=== PATIENT | male | born 1990 | race Caucasian/White ===

== ENCOUNTER 2017-04-20 16:58 | Inpatient (IN) | payer OTHER, BC ==
[2017-04-20] MEDS ORDERED: HYDROcodone/APAP 7.5-325MG 1 EACH TAB PO ONE (17:35)
[2017-04-20] MEDS ORDERED: cefTRIAXone 1,000 MG VIAL (IM USE) IM STA (17:36)
[2017-04-20] MEDS ORDERED: CIPROFLOXACIN-DEXAMETH 0.3-0.1% DROPS 7.5 ML BTL LEFT EAR STA (17:37)
--- NOTE | 2017-04-20 18:21 | ED ---
ENT HPI - General Chief complaint: ENT Stated complaint: Swollen Neck Time Seen by Provider: 04/20/17 17:30 Source: patient, RN notes reviewed Mode of arrival: ambulatory Limitations: no limitations - History of Present Illness Initial comments: 26-year-old male presents emergency Department with chief complaint of severe left ear pain and pain behind his ear. Patient states started 2 days ago after he got a shower. Patient was seen at the [facility] was placed on Polytrim eardrops, , amoxicillin and tramadol. Patient states that symptoms are exponentially worse. Patient states his ear canal is swollen shut his ear is swollen and around it is swollen. Patient denies any fever or chills. Patient does complain of severe pain. Patient states that he is not diabetic and they did do an Accu-Chek when he was seen the other day. - Related Data Allergies Allergy/AdvReac Type Severity Reaction Status Date / Time No Known Allergies Allergy Verified 04/20/17 17:07 Review of Systems ROS Statement: Those systems with pertinent positive or pertinent negative responses have been documented in the HPI. ROS Other: All systems not noted in ROS Statement are negative. Past Medical History Past Medical History: No Reported History History of Any Multi-Drug Resistant Organisms: None Reported Past Surgical History: No Surgical Hx Reported Past Psychological History: No Psychological Hx Reported Smoking Status: Never smoker Past Alcohol Use History: None Reported Past Drug Use History: None Reported General Exam Limitations: no limitations General appearance: alert, in no apparent distress Head exam: Present: atraumatic, normocephalic, normal inspection Eye exam: Present: normal appearance, PERRL, EOMI. Absent: scleral icterus, conjunctival injection, periorbital swelling ENT exam: Present: normal oropharynx, mucous membranes moist, other (Tenderness in the mastoid region the left with surrounding swelling). Absent: normal exam , TM's normal bilaterally (Unable to visualize left TM), normal external ear exam (Edema and erythema with some purulent drainage noted from left EAC, swelling of the left auricle noted) Neck exam: Present: normal inspection, full ROM, lymphadenopathy. Absent: tenderness, meningismus Respiratory exam: Present: normal lung sounds bilaterally. Absent: respiratory distress, wheezes, rales, rhonchi, stridor Cardiovascular Exam: Present: regular rate, normal rhythm, normal heart sounds. Absent: systolic murmur, diastolic murmur, rubs, gallop, clicks Course Vital Signs 04/20/17 04/20/17 17:05 19:26 Temperature 99.5 F 97.8 F Pulse Rate 103 H 78 Respiratory 18 18 Rate Blood Pressure 167/95 140/79 O2 Sat by Pulse 99 98 Oximetry Medical Decision Making - Medical Decision Making Patient will be admitted at this time for IV antibiotics, Ciprodex eardrops. Patient has worsening symptoms and failed outpatient treatment for severe otitis externa and media with mastoiditis. Do have some concerns for possible malignant otitis externa. Patient be started on Zosyn and Ciprodex. Patient case discussed with Dr. santana - Lab Data Result diagrams: 04/20/17 19:00 04/20/17 19:00 Lab Results 04/20/17 04/20/17 Range/Units 19:00 19:00 WBC 11.0 H (3.8-10.6) k/uL RBC 4.90 (4.30-5.90) m/uL Hgb 15.2 (13.0-17.5) gm/dL Hct 44.9 (39.0-53.0) % MCV 91.6 (80.0-100.0) fL MCH 31.0 (25.0-35.0) pg MCHC 33.9 (31.0-37.0) g/dL RDW 14.8 (11.5-15.5) % Plt Count 295 (150-450) k/uL Neutrophils % 74 % Lymphocytes % 16 % Monocytes % 7 % Eosinophils % 0 % Basophils % 0 % Neutrophils # 8.1 H (1.3-7.7) k/uL Lymphocytes # 1.8 (1.0-4.8) k/uL Monocytes # 0.7 (0-1.0) k/uL Eosinophils # 0.0 (0-0.7) k/uL Basophils # 0.0 (0-0.2) k/uL Sodium 137 (137-145) mmol/L Potassium 3.9 (3.5-5.1) mmol/L Chloride 100 (98-107) mmol/L Carbon Dioxide 25 (22-30) mmol/L Anion Gap 12 mmol/L BUN 10 (9-20) mg/dL Creatinine 0.66 (0.66-1.25) mg/dL Est GFR (MDRD) Af Amer >60 (>60 ml/min/1.73 sqM) Est GFR (MDRD) Non-Af >60 (>60 ml/min/1.73 sqM) Glucose 104 H (74-99) mg/dL Calcium 9.6 (8.4-10.2) mg/dL Total Bilirubin 2.3 H (0.2-1.3) mg/dL AST 21 (17-59) U/L ALT 43 (21-72) U/L Alkaline Phosphatase 66 (38-126) U/L Total Protein 7.8 (6.3-8.2) g/dL Albumin 4.6 (3.5-5.0) g/dL Disposition Clinical Impression: Malignant otitis externa of left ear, Otitis media, Mastoiditis Disposition: ADMITTED IP TO THIS HOSP Condition: Fair Referrals: None,Stated [Primary Care Provider] - 1-2 days
--- NOTE | 2017-04-20 18:30 | CT ---
EXAMINATION TYPE: CT mastoid wo con DATE OF EXAM: 04/20/2017 COMPARISON: NONE HISTORY: Left ear redness, swelling and drainage. CT DLP: 290.00 mGycm Automated exposure control for dose reduction was used. FINDINGS: There is subcutaneous edema around the left ear. There is increased density in the left external narda tory canal which is occluded. There is normal aeration of the right mastoid sinus. There is mild muco miguel thickening in the left mastoid air cells. Temporomandibular joints appear normal. There is opacif ication of the left middle ear cavity with increased density extending into the epitympanic recess. The internal auditory canals are symmetric. There is no sign of a cerebellopontine angle mass. The se micircular canals are symmetric. The cochlea are symmetric. IMPRESSION: THERE IS SOFT TISSUE SWELLING AND EDEMA AT THE EXTERNAL AUDITORY CANAL AND AROUND THE LEFT EAR CONSIS TENT WITH SEVERE OTITIS EXTERNA. THERE IS SIGNIFICANT OPACIFICATION OF THE LEFT MIDDLE EAR CAVITY CONSISTENT WITH OTITIS MEDIA. THERE IS EVIDENCE FOR MINIMAL LEFT-SIDED MASTOIDITIS.
[2017-04-20] MEDS ORDERED: ONDANSETRON 4 MG/2 ML VIAL IVP STA (18:50)
[2017-04-20 19:14] LABS: Basophils % (A) 0 %; CH 31.4; CHCM 34.4; Eosinophils % (A) 0 %; HCT 44.9 % (39.0-53.0); HDW 2.69; HGB 15.2 gm/dL (13.0-17.5); Luc # (Auto) 0.28; Luc % (Auto) 3; Lymphocytes # (A) 1.8 k/uL (1.0-4.8); Lymphocytes % (A) 16 %; MCHC 33.9 g/dL (31.0-37.0); MCV 91.6 fL (80.0-100.0); Mean Platelet Volume 6.5; Monocytes # (A) 0.7 k/uL (0-1.0); Monocytes % (A) 7 %; Neutrophils # (A) 8.1 k/uL (1.3-7.7); Neutrophils % (A) 74 %; RDW 14.8 % (11.5-15.5); WBC (Perox) 10.14
[2017-04-20 19:22] LABS: ALT 43 U/L (21-72); AST 21 U/L (17-59); Alkaline Phosphatase 66 U/L (38-126); Anion Gap 12 mmol/L; Blood Urea Nitrogen 10 mg/dL (9-20); Calcium 9.6 mg/dL (8.4-10.2); Carbon Dioxide 25 mmol/L (22-30); Chloride 100 mmol/L (98-107); Glucose 104 mg/dL (74-99); Non-African American GFR(MDRD) >60 (>60 ml/min/1.73 sqM); Potassium 3.9 mmol/L (3.5-5.1); Sodium 137 mmol/L (137-145); Total Bilirubin 2.3 mg/dL (0.2-1.3); Total Protein 7.8 g/dL (6.3-8.2)
[2017-04-20] MEDS ORDERED: ONDANSETRON 4 MG/2 ML VIAL IVP PRN (19:31)
[2017-04-20] MEDS ORDERED: ACETAMINOPHEN TAB 325 MG TAB PO PRN (19:31)
[2017-04-20] MEDS ORDERED: NALOXONE 0.4 MG/ML 1 ML VIAL IV PRN (19:31)
[2017-04-20] MEDS: HYDROcodone/APAP 5-325MG 1 EACH TAB PO PRN (22:08)
[2017-04-20] MEDS: SODIUM CHLORIDE 0.9% 1,000 ML IV SCH (22:09)
[2017-04-20] MEDS: CIPROFLOXACIN-DEXAMETH 0.3-0.1% DROPS 7.5 ML BTL LEFT EAR SCH (22:10)
[2017-04-20] MEDS ORDERED: ALPRAZolam 0.25 MG TAB PO PRN (23:57)
[2017-04-20] MEDS ORDERED: TEMAZEPAM 15 MG CAP PO PRN (23:57)
[2017-04-20] MEDS: PIPERACILLIN-TAZOBACTAM 3.375 GM in DEXTROSE/WATER 1 50ML.BAG IVPB SCH (23:58)
[2017-04-21] MEDS: HYDROmorphone 1 MG/ML 1 ML SYRINGE IVP PRN ×4 (02:17→17:26)
[2017-04-21] MEDS: HEPARIN SODIUM,PORCINE 5,000 UNIT/ML 1 ML VIAL SQ SCH ×2 (08:42→22:15)
[2017-04-21] MEDS: CIPROFLOXACIN-DEXAMETH 0.3-0.1% DROPS 7.5 ML BTL LEFT EAR SCH ×2 (08:42→22:15)
[2017-04-21] MEDS: PANTOPRAZOLE 40 MG TABLET PO SCH (08:42)
[2017-04-21] MEDS: PIPERACILLIN-TAZOBACTAM 3.375 GM in DEXTROSE/WATER 1 50ML.BAG IVPB SCH ×3 (08:43→23:37)
[2017-04-21 09:26] LABS: Basophils % (A) 0 %; CH 31.5; CHCM 33.7; Eosinophils % (A) 0 %; HCT 43.6 % (39.0-53.0); HDW 2.72; HGB 14.3 gm/dL (13.0-17.5); Luc # (Auto) 0.24; Luc % (Auto) 2; Lymphocytes % (A) 18 %; MCH 30.8 pg (25.0-35.0); MCHC 32.8 g/dL (31.0-37.0); Mean Platelet Volume 6.5; Monocytes # (A) 0.7 k/uL (0-1.0); Monocytes % (A) 6 %; Neutrophils # (A) 8.3 k/uL (1.3-7.7); Neutrophils % (A) 73 %; RBC 4.64 m/uL (4.30-5.90); RDW 14.8 % (11.5-15.5); WBC 11.3 k/uL (3.8-10.6); WBC (Perox) 11.19
[2017-04-21 09:30] LABS: Anion Gap 10 mmol/L; Blood Urea Nitrogen 9 mg/dL (9-20); Calcium 9.4 mg/dL (8.4-10.2); Carbon Dioxide 26 mmol/L (22-30); Chloride 100 mmol/L (98-107); Glucose 105 mg/dL (74-99); Non-African American GFR(MDRD) >60 (>60 ml/min/1.73 sqM); Potassium 4.2 mmol/L (3.5-5.1); Sodium 136 mmol/L (137-145)
--- NOTE | 2017-04-21 10:29 | HP ---
DATE OF ADMISSION: 04/20/2017 CHIEF COMPLAINT: Pain and swelling and discharge from the left ear. HISTORY OF PRESENT ILLNESS: This 26-year-old gentleman with a past medical history of no significant medical issues, not being followed by any primary physician in the outpatient setting, was complaining of left ear pain as well as some discharge. Patient went to [facility] and was given antibiotics as well as ear drops. Because of lack of improvement, the patient presented to [facility] and was admitted for further evaluation and treatment. A CT scan showed significant soft tissue swelling of the external auditory canal around the left ear consistent with severe otitis externa; also significant opacification of the left mid ear cavity consistent with otitis media was noted. There is evidence of minimal left-sided mastoiditis also noted. There is no history of any fever, rigor, or chills. No history of any headache, loss of consciousness, seizures, hematochezia, melena, shortness of breath at this time. PAST MEDICAL HISTORY: No significant MEDICATIONS: 1. Neomycin/Polymyxin ear drops. 2. Tramadol. 3. Augmentin 875 p.o. b.i.d. ALLERGIES: NONE. FAMILY HISTORY: No history of heart disease or strokes in the family. SOCIAL HISTORY: No history of smoking. No history of alcohol intake. REVIEW OF SYSTEMS: ENT: As mentioned earlier. CARDIOVASCULAR SYSTEM: No angina, palpitations. RESPIRATORY SYSTEM: As mentioned earlier. GI: No nausea, vomiting. : No dysuria. NERVOUS SYSTEM: No numbness or weakness. ALLERGY/IMMUNOLOGY: No asthma, hayfever. MUSCULOSKELETAL: As mentioned earlier. HEMATOLOGY/ONCOLOGY: No history of anemia. ENDOCRINE: No history of diabetes, hypothyroidism. CONSTITUTIONAL: As mentioned earlier. DERMATOLOGY: Negative. RHEUMATOLOGY: Negative. PSYCHIATRY: As mentioned earlier. PHYSICAL EXAMINATION: Patient alert and oriented x3. Pulse is 103, blood pressure 166/95, respiratory rate 18, temperature 99.4, pulse ox 99% on room air. HEENT: Conjunctivae normal. Oral mucosa moist. NECK: No jugular venous distention. No carotid bruit. No lymph node enlargement. CARDIOVASCULAR SYSTEM: S1, S2 muffled. No S3. No S4. RESPIRATORY SYSTEM: Breath sounds diminished at the bases. No rhonchi. No crackles. ABDOMEN: Soft, obese, nontender. No mass palpable. LEGS: No edema. No swelling. NERVOUS SYSTEM: Higher functions as mentioned earlier. Moves all 4 limbs. No focal motor or sensory deficit. LYMPHATICS: No lymph node palpable in neck, axillae or groin. SKIN: No ulcer, rash, bleeding. Labs at this time show WBC 11. Total bilirubin is 2.3. ASSESSMENT: 1. Acute severe otitis externa on the left side with severe pain and failure of outpatient treatment. 2. Increased white count. 3. Increased total bilirubin. 4. Morbid obesity. 5. FULL CODE. RECOMMENDATIONS AND DISCUSSION: In this 26-year-old gentleman who presented with multiple complex medical issues, we will monitor the patient closely, continue the current medications, continue symptomatic treatment. Will initiate broad-spectrum IV antibiotics and ENT evaluation, pain medications. infectious disease evaluation. Guarded prognosis because of multiple complex medical issues. Further recommendations to follow. MTDD
--- NOTE | 2017-04-21 10:34 | P.GSCN ---
History of Present Illness Consult date: 04/21/17 Reason for Consult: Ear pain, left Requesting physician: Toni Connor History of present illness: This is a 26-year-old obese white male who presented to the emergency room with ear pain yesterday evening. He tells me that it started on Sunday where he had pain in his left ear that was progressive after he got out of the shower. He was not using Q-tips he was using ear buds. He was seen at [facility] and was placed on eardrops and amoxicillin and tramadol. His left-sided otalgia has been significantly worse and ovaries the pain as 7 out of 0-10. He tells me that the pain started in the ear canal and spread to his ear. The left ear is tender. The pain is consistent. The patient medications are helpful. Patient was checked for diabetes and he does not have diabetes. He's been admitted for about 12 hours and has noted slight improvement. He does have hearing loss to the left ear along with this pain. Has had some otorrhea. He has a left otowick in place. Review of Systems - Constitutional Reports fatigue, Reports fever - EENT EENT Comment(s): Left ear pain as above Ears, nose, mouth and throat: Denies epistaxis, Denies headache, Denies hoarseness - Cardiovascular Denies chest pain, Denies claudication - Respiratory Denies congestion - Gastrointestinal Denies abdominal pain - Genitourinary Denies decreased libido - Musculoskeletal Denies gait dysfunction - Integumentary Denies brittle nails - Neurological Denies ataxia, Denies balance difficulties - Psychiatric Denies anxiety, Denies anxiety attacks - Endocrine Denies heat intolerance, Denies high blood sugars - Hematologic/Lymphatic Denies easy bleeding - Allergic/Immunologic Denies allergic rhinitis, Denies anaphylaxis Past Medical History Past Medical History: No Reported History History of Any Multi-Drug Resistant Organisms: None Reported Past Surgical History: No Surgical Hx Reported Past Anesthesia/Blood Transfusion Reactions: No Reported Reaction Past Psychological History: No Psychological Hx Reported Smoking Status: Never smoker Past Alcohol Use History: None Reported Past Drug Use History: None Reported Medications and Allergies Home Medications Medication Instructions Recorded Confirmed Type Amoxic-Pot Clav 875-125Mg 1 tab PO Q12HR 04/20/17 04/20/17 History [Augmentin 875-125] Neomycin/Polymyxin B/Hydrocort 3 drops LEFT EAR TID 04/20/17 04/20/17 History [Fvxuspto-Utvlzeose-Og Ear Susp] traMADol HCl [Ultram] 50 mg PO Q6H PRN 04/20/17 04/20/17 History Allergies Allergy/AdvReac Type Severity Reaction Status Date / Time No Known Allergies Allergy Verified 04/20/17 17:07 Surgical - Exam Osteopathic Statement: *. No significant issues noted on an osteopathic structural exam other than those noted in the History and Physical/Consult. Vital Signs Temp Pulse Resp BP Pulse Ox 99.5 F 103 H 18 167/95 99 04/20/17 17:05 04/20/17 17:05 04/20/17 17:05 04/20/17 17:05 04/20/17 17:05 - General well nourished, moderate distress, obese - Eyes PERRL, normal ocular movement, no pale, no icteric, no deviation, no loss of movement - ENT Has was cephalic face is symmetric. There is some tenderness to the left ear the left auricle is swollen the canal is swollen and the left otowick is in place.No tumors polyps or masses mouth and throat no oral lesions are seen neck is unremarkable - Neck no masses - Respiratory normal expansion - Abdomen Abdomen: non tender - Neurologic normal coordination, normal sensation - Musculoskeletal normal gait - Psychiatric oriented to time, oriented to person, oriented to place Results - Labs 04/21/17 08:37 04/21/17 08:37 Abnormal Lab Results - Last 24 Hours (Table) 04/20/17 04/20/17 04/21/17 Range/Units 19:00 19:00 08:37 WBC 11.0 H 11.3 H (3.8-10.6) k/uL Neutrophils # 8.1 H 8.3 H (1.3-7.7) k/uL Sodium (137-145) mmol/L Glucose 104 H (74-99) mg/dL Total Bilirubin 2.3 H (0.2-1.3) mg/dL 04/21/17 Range/Units 08:37 WBC (3.8-10.6) k/uL Neutrophils # (1.3-7.7) k/uL Sodium 136 L (137-145) mmol/L Glucose 105 H (74-99) mg/dL Total Bilirubin (0.2-1.3) mg/dL Diabetes panel 04/20/17 04/21/17 Range/Units 19:00 08:37 Sodium 137 136 L (137-145) mmol/L Potassium 3.9 4.2 (3.5-5.1) mmol/L Chloride 100 100 (98-107) mmol/L Carbon Dioxide 25 26 (22-30) mmol/L BUN 10 9 (9-20) mg/dL Creatinine 0.66 0.68 (0.66-1.25) mg/dL Glucose 104 H 105 H (74-99) mg/dL Calcium 9.6 9.4 (8.4-10.2) mg/dL AST 21 (17-59) U/L ALT 43 (21-72) U/L Alkaline Phosphatase 66 (38-126) U/L Total Protein 7.8 (6.3-8.2) g/dL Albumin 4.6 (3.5-5.0) g/dL Calcium panel 04/20/17 04/21/17 Range/Units 19:00 08:37 Calcium 9.6 9.4 (8.4-10.2) mg/dL Albumin 4.6 (3.5-5.0) g/dL Pituitary panel 04/20/17 04/21/17 Range/Units 19:00 08:37 Sodium 137 136 L (137-145) mmol/L Potassium 3.9 4.2 (3.5-5.1) mmol/L Chloride 100 100 (98-107) mmol/L Carbon Dioxide 25 26 (22-30) mmol/L BUN 10 9 (9-20) mg/dL Creatinine 0.66 0.68 (0.66-1.25) mg/dL Glucose 104 H 105 H (74-99) mg/dL Calcium 9.6 9.4 (8.4-10.2) mg/dL Adrenal panel 04/20/17 04/21/17 Range/Units 19:00 08:37 Sodium 137 136 L (137-145) mmol/L Potassium 3.9 4.2 (3.5-5.1) mmol/L Chloride 100 100 (98-107) mmol/L Carbon Dioxide 25 26 (22-30) mmol/L BUN 10 9 (9-20) mg/dL Creatinine 0.66 0.68 (0.66-1.25) mg/dL Glucose 104 H 105 H (74-99) mg/dL Calcium 9.6 9.4 (8.4-10.2) mg/dL Total Bilirubin 2.3 H (0.2-1.3) mg/dL AST 21 (17-59) U/L ALT 43 (21-72) U/L Alkaline Phosphatase 66 (38-126) U/L Total Protein 7.8 (6.3-8.2) g/dL Albumin 4.6 (3.5-5.0) g/dL Assessment and Plan (1) Otitis externa of left ear Status: Acute (2) Otalgia of left ear Status: Acute (3) Cellulitis Status: Acute Plan: This patient has a acute otitis externa with associated cellulitis. There is no evidence of any polyp material or granulation tissue or bloody otorrhea. I do not think that this patient has acute otitis externa maligna. The patient does not have a history of diabetes. He does have a severe case of otitis externa with associated cellulitis and current treatment directed toward presumptive Pseudomonas are staph aureus is recommended. The use of otic topical eardrops and appropriate antibiotics directed towards staph and pseudomonas is indicated. I would also utilize a topical antibiotic ointment to the auricle. Thank you for allowing me to participate in the care of this patient. Regarding the CAT scan findings of the mastoid fluid, I think this is an incidental finding and is not a true case and mastoiditis. Time with Patient: Greater than 30
[2017-04-21] MEDS: SODIUM CHLORIDE 0.9% 1,000 ML IV SCH ×2 (13:20→23:38)
[2017-04-21] MEDS ORDERED: IV VANCOMYCIN PER PHARMACY 1 EACH MISC MISCELLANE PRN (14:28)
[2017-04-21] MEDS ORDERED: VANCOMYCIN 2,250 MG in SODIUM CHLORIDE 0.9% 500 ML IVPB ONE (15:00)
[2017-04-21] MEDS: IBUPROFEN 400 MG TAB PO PRN (15:17)
[2017-04-21] MEDS: MUPIROCIN CALCIUM 2% CREAM 15 GM TUBE TOPICAL SCH ×2 (15:50→22:15)
[2017-04-21 18:40] LABS: ALT 54 U/L (21-72); AST 37 U/L (17-59); Alkaline Phosphatase 61 U/L (38-126); Anion Gap 8 mmol/L; Blood Urea Nitrogen 10 mg/dL (9-20); Carbon Dioxide 27 mmol/L (22-30); Chloride 101 mmol/L (98-107); Glucose 94 mg/dL (74-99); Non-African American GFR(MDRD) >60 (>60 ml/min/1.73 sqM); Potassium 4.1 mmol/L (3.5-5.1); Sodium 136 mmol/L (137-145); Total Bilirubin 1.7 mg/dL (0.2-1.3); Total Protein 7.1 g/dL (6.3-8.2)
[2017-04-21] MEDS: methylPREDNISolone SOD SUCCI 125 MG/2 ML VIAL IV SCH (22:15)
[2017-04-22] MEDS ORDERED: VANCOMYCIN 2,250 MG in SODIUM CHLORIDE 0.9% 500 ML IVPB SCH ×2
[2017-04-22] MEDS: VANCOMYCIN 2,250 MG in SODIUM CHLORIDE 0.9% 500 ML IVPB SCH ×3 (04:30→20:03)
[2017-04-22] MEDS: HYDROcodone/APAP 5-325MG 1 EACH TAB PO PRN ×5 (05:53→23:32)
[2017-04-22] MEDS: PANTOPRAZOLE 40 MG TABLET PO SCH (08:06)
[2017-04-22] MEDS: CIPROFLOXACIN-DEXAMETH 0.3-0.1% DROPS 7.5 ML BTL LEFT EAR SCH ×2 (08:06→20:14)
[2017-04-22] MEDS: methylPREDNISolone SOD SUCCI 125 MG/2 ML VIAL IV SCH ×2 (08:07→20:14)
[2017-04-22] MEDS: HEPARIN SODIUM,PORCINE 5,000 UNIT/ML 1 ML VIAL SQ SCH ×2 (08:07→20:14)
[2017-04-22] MEDS: MUPIROCIN CALCIUM 2% CREAM 15 GM TUBE TOPICAL SCH ×3 (08:07→20:19)
[2017-04-22] MEDS: IBUPROFEN 400 MG TAB PO PRN ×2 (08:07→19:20)
[2017-04-22] MEDS: PIPERACILLIN-TAZOBACTAM 3.375 GM in DEXTROSE/WATER 1 50ML.BAG IVPB SCH ×3 (08:08→23:32)
[2017-04-22 09:07] LABS: Basophils % (A) 0 %; CH 31.5; CHCM 33.6; Eosinophils % (A) 0 %; HDW 2.81; HGB 15.2 gm/dL (13.0-17.5); Luc # (Auto) 0.07; Luc % (Auto) 1; Lymphocytes % (A) 15 %; MCH 29.8 pg (25.0-35.0); MCHC 31.7 g/dL (31.0-37.0); MCV 94.3 fL (80.0-100.0); Mean Platelet Volume 6.9; Monocytes # (A) 0.1 k/uL (0-1.0); Monocytes % (A) 2 %; Neutrophils # (A) 5.6 k/uL (1.3-7.7); Neutrophils % (A) 82 %; RBC 5.09 m/uL (4.30-5.90); RDW 14.9 % (11.5-15.5); WBC 6.8 k/uL (3.8-10.6); WBC (Perox) 6.81
--- NOTE | 2017-04-22 09:10 | PN ---
DATE OF SERVICE: 04/21/2017 This 26-year-old gentleman was admitted with significant pain and swelling as well as external nodules of left ear has been closely monitored. Patient is on broad spectrum IV antibiotics, pain medications. ENT, Dr. Orozco has seen the patient and has recommended to continue the antibiotics with topical ointment and continue to monitor. No chest pain. No palpitation. No fever, no shortness of breath. On exam, alert and oriented x3. Pulse is 92, blood pressure 150/97, respirations 16, temperature 98.4, pulse ox 90% on room air. HEENT: Conjunctivae normal. NECK: No jugular venous distention. CARDIOVASCULAR: S1 and S2, muffled. RESPIRATORY: Breath sounds diminished at the bases. A few scattered rhonchi. ABDOMEN: Soft, nontender. LEGS: No edema, no swelling. NERVOUS SYSTEM: Higher function as mentioned. Examination of the left ear: Tender, erythematous, and some discharge also present, packed. Labs at this time shows WBC 11.3, sodium 136, glucose 105. ASSESSMENT: 1. Acute severe otitis externa on the left side with severe pain and failure of outpatient treatment. 2. Increased WBC. 3. Increased total bilirubin. 4. Morbid obesity. 5. Hyponatremia, mild. 6. Increased random blood sugar. RECOMMENDATIONS AND DISCUSSION: In this 26-year-old gentleman who presented with multiple complex medical problems, we will monitor the patient closely. Continue the current medications. Continue symptomatic treatment. I would recommend continue IV antibiotics. Otherwise symptomatic treatment, DVT prophylaxis. Dr. Orozco's opinion is that it is unlikely to be malignant external otitis. We will follow the patient closely. The cultures are negative so far. I also recommend a fractionation of bilirubin to complete the work-up for mild hypobilirubinemia which is noted as well as symptomatic treatment. The overall prognosis is guarded. Further recommendations to follow. Closely follow with Dr. Orozco.
[2017-04-22 09:23] LABS: Anion Gap 11 mmol/L; Bilirubin, Delta 0.3 mg/dL (0.0-0.2); Blood Urea Nitrogen 9 mg/dL (9-20); Calcium 9.6 mg/dL (8.4-10.2); Carbon Dioxide 23 mmol/L (22-30); Chloride 105 mmol/L (98-107); Glucose 126 mg/dL (74-99); Non-African American GFR(MDRD) >60 (>60 ml/min/1.73 sqM); Potassium 4.8 mmol/L (3.5-5.1); Sodium 139 mmol/L (137-145); Total Bilirubin 1.2 mg/dL (0.2-1.3)
--- NOTE | 2017-04-22 11:57 | CONS ---
DATE OF CONSULTATION: 04/21/2017 REASON FOR CONSULTATION: Otitis externa. HISTORY OF PRESENT ILLNESS: The patient is a 26-year-old morbidly obese male who started having pain in his left ear after he came out of the shower on Sunday, that is 2 days prior to admission to the hospital. The patient said that by that evening it was dull nagging pain making it hard for him to go to sleep. The next, , he went to [facility] ER where the patient was evaluated by the ER physician. He had been given amoxicillin and Tramadol and discharged home. However, the patient's pain continued to get worse. Hence, he presented to the [facility] ER on 04/20/2017. The patient has been worked up by the ER physician. The patient did have a head x-ray and CT that was suggestive of a soft tissue swelling and edema and external auditory canal and around the left ear. Concern for otitis externa. Significant ossification of the left middle ear cavity consistent with otitis media. The patient has been admitted to the hospital and started on Zosyn. ID was consulted for further recommendations regarding antibiotics. Patient has pain to the left ear described to be throbbing pain, almost 10 out of 10. He presented to the ER. He was down to about 7 out of 10 now. No significant radiation. There was no significant radiation and no significant drainage from the left ear. The patient did have some fevers and chills. Denies any URI symptom. Denies significant chest pain, shortness of breath or cough. Denies significant abdominal pain. No diarrhea, burning or frequency of urine. REVIEW OF SYSTEMS: CONSTITUTIONAL: Positive for weakness and fever. EYES: No complaint. ENT: As per HPI. RESPIRATORY: No complaint. CARDIOVASCULAR: No complaint. GENITOURINARY: No complaint. GASTROINTESTINAL: No complaint. MUSCULOSKELETAL: No complaint. INTEGUMENTARY: No complaint. PSYCHOLOGICAL: No complaint. ENDOCRINE: No complaint. NEUROLOGIC: No complaint. PAST MEDICAL HISTORY: No major illnesses. PAST SURGICAL HISTORY: No major surgery. SOCIAL HISTORY: Denies smoking, drinking, or drug use. Works in [employer]. FAMILY HISTORY: No pertinent findings noticed. ALLERGIES: No known drug allergies. Medications include the patient is currently on Tylenol, [place], Xanax, simethicone drops, heparin, Dilaudid, Motrin, Solu-Medrol, Bactroban cream, Narcan, Zofran, Protonix, pip-tazobactam, temazepam. On examination, blood pressure is 154/97, pulse of 92, temperature 98.4, T-max of 99.5. He is 98% on room air. General description is a middle-age male lying in bed in no distress. No tachypnea or accessory muscle of respiration use. HEENT examination showed no pallor or scleral icterus. Oral mucous membrane dry. Examination of the left ear seems to be swollen with some drainage in the ear canal and could not be examined further because of the pain associated with it. NECK: Trachea central. There is no thyromegaly. LUNGS: Unlabored breathing. Clear to auscultation anteriorly. No wheeze or crackle. HEART: S1, S2. Regular rate and rhythm. ABDOMEN: Soft. No tenderness. No guarding or rigidity. EXTREMITIES: No edema of feet. SKIN: No rash or mass palpable. NEUROLOGICAL: The patient is awake, alert, oriented x3. Mood and affect normal. LABS: Hemoglobin 14.8, white count of 11.3 with a BUN of 10, creatinine 0.57. Electrolytes have been normal. Liver enzymes are normal. Blood culture obtained, currently pending. DIAGNOSTIC IMPRESSION AND PLAN: Patient with extensive otitis externa and question of possible hepatitis mainly in a patient who does not give any history of any trauma to it. The likely organism that will be covered is Gram-positive skin verito less likely gram-negative pathogen in a patient with history of diabetes or other chronic medical condition. PLAN: 1. Zosyn will be continued and will add vancomycin pharmacy to dose with target of 15. 2. Will follow up on his clinical condition as well as cultures to further adjust the medication if needed. Thank you for this consultation. We will follow this patient along with you.
[2017-04-22] MEDS: SODIUM CHLORIDE 0.9% 1,000 ML IV SCH ×2 (12:14→23:32)
[2017-04-23] MEDS ORDERED: VANCOMYCIN TROUGH DUE 1 EACH MISC MISCELLANE ONE (03:00)
[2017-04-23 03:24] LABS: Basophils % (A) 0 %; CH 31.5; CHCM 34.4; Eosinophils # (A) 0.2 k/uL (0-0.7); Eosinophils % (A) 1 %; HCT 43.6 % (39.0-53.0); HDW 2.92; HGB 14.7 gm/dL (13.0-17.5); Luc # (Auto) 0.17; Luc % (Auto) 1; Lymphocytes # (A) 1.4 k/uL (1.0-4.8); Lymphocytes % (A) 9 %; MCHC 33.6 g/dL (31.0-37.0); MCV 92.1 fL (80.0-100.0); Mean Platelet Volume 6.7; Monocytes # (A) 0.5 k/uL (0-1.0); Monocytes % (A) 3 %; Neutrophils # (A) 13.3 k/uL (1.3-7.7); Neutrophils % (A) 85 %; RBC 4.73 m/uL (4.30-5.90); RDW 14.5 % (11.5-15.5); WBC 15.7 k/uL (3.8-10.6); WBC (Perox) 15.94
[2017-04-23] MEDS: HYDROcodone/APAP 5-325MG 1 EACH TAB PO PRN ×5 (03:50→23:55)
[2017-04-23] MEDS: IBUPROFEN 400 MG TAB PO PRN ×4 (03:50→23:56)
[2017-04-23] MEDS: VANCOMYCIN 2,250 MG in SODIUM CHLORIDE 0.9% 500 ML IVPB SCH (03:52)
[2017-04-23 04:15] LABS: Anion Gap 9 mmol/L; Blood Urea Nitrogen 15 mg/dL (9-20); Calcium 9.7 mg/dL (8.4-10.2); Carbon Dioxide 23 mmol/L (22-30); Chloride 109 mmol/L (98-107); Glucose 162 mg/dL (74-99); Non-African American GFR(MDRD) >60 (>60 ml/min/1.73 sqM); Potassium 5.3 mmol/L (3.5-5.1); Sodium 141 mmol/L (137-145)
--- NOTE | 2017-04-23 07:24 | PN ---
DATE OF SERVICE: 04/22/2017 This 26-year-old gentleman admitted with significant severe external otitis has been on IV antibiotics. No chest pain, no palpitations. No fever. The swelling and pain are slightly better. Cultures are negative so far. On exam, alert and oriented x3. Pulse 78, blood pressure 160/98, respirations 16, temperature 97.1, pulse ox 97% on room air. HEENT: Conjunctivae normal. NECK: No jugular venous distention. CARDIOVASCULAR: S1 and S2, muffled. RESPIRATORY: Breath sounds diminished at the bases. No rhonchi, no crackles. ABDOMEN: Soft, nontender. LEGS: No edema, no swelling. NERVOUS SYSTEM: No focal deficits. LABS: WBC 6.8, hemoglobin 15.2, glucose 126, total bilirubin is 1.2. ASSESSMENT: 1. Acute severe otitis externa on the left side with severe pain and failure of outpatient treatment. 2. Increased WBC. 3. Increased total bilirubin. 4. Morbid obesity. 5. Hyponatremia, mild. 6. Increased random blood sugar. 7. Hypertension. RECOMMENDATIONS AND DISCUSSION: In this 26-year-old gentleman who presented with multiple complex medical issues, will monitor the patient closely. Continue the current medications. Continue symptomatic treatment. Otherwise, at this time I would recommend continue with the current medications. Continue symptomatic treatment, antibiotics, and steroids and closely monitor with ENT. Further recommendations to follow.
[2017-04-23] MEDS: PIPERACILLIN-TAZOBACTAM 3.375 GM in DEXTROSE/WATER 1 50ML.BAG IVPB SCH ×3 (08:29→23:55)
[2017-04-23] MEDS: PANTOPRAZOLE 40 MG TABLET PO SCH (08:34)
[2017-04-23] MEDS: methylPREDNISolone SOD SUCCI 125 MG/2 ML VIAL IV SCH ×2 (08:34→20:30)
[2017-04-23] MEDS: HEPARIN SODIUM,PORCINE 5,000 UNIT/ML 1 ML VIAL SQ SCH ×2 (08:35→20:30)
[2017-04-23] MEDS: CIPROFLOXACIN-DEXAMETH 0.3-0.1% DROPS 7.5 ML BTL LEFT EAR SCH ×2 (08:37→20:30)
[2017-04-23] MEDS: MUPIROCIN CALCIUM 2% CREAM 15 GM TUBE TOPICAL SCH ×3 (08:37→20:31)
--- NOTE | 2017-04-23 12:33 | PN ---
DATE OF SERVICE: 04/22/2017 Reason for follow-up: ( ). INTERVAL HISTORY: The patient is afebrile. Pain to the left ( ) is currently slightly improved. There is no significant drainage. The patient denies any significant swallowing. Denies significant chest pain, shortness of breath, cough, no abdominal pain or diarrhea. On examination, blood pressure 165/92, pulse of 70, temperature 98.1. He is 97% on room air. General description is a middle age male lying in bed in no distress. HEENT: Left ear showing swelling that is slightly improved. No drainage. LUNGS: Unlabored breathing. Clear to auscultation anteriorly. HEART: S1, S2. Regular rate and rhythm. ABDOMEN: Soft. No tenderness. LABS: Hemoglobin is 15.2, white count of 6.8 with a BUN of 9, creatinine 0.61. Cultures are currently pending. DIAGNOSTIC IMPRESSION AND PLAN: Patient with left otitis externa. Patient will continue Zosyn and Vanco while awaiting for the culture to finalize. Continue supportive care.
[2017-04-23] MEDS: VANCOMYCIN 2,500 MG in SODIUM CHLORIDE 0.9% 500 ML IVPB SCH ×2 (12:35→20:28)
[2017-04-23] MEDS: SODIUM CHLORIDE 0.9% 1,000 ML IV SCH (14:56)
--- NOTE | 2017-04-23 17:13 | P.PN ---
Subjective Date of service 04/23/2017. Progress note being dictated for Dr. Connor. Interval history: This is a 26-year-old gentleman admitted with acute severe otitis externa on the left side with severe pain and failure of outpatient treatment and multiple other medical issues. Evaluated by ENT, recommendations noted. Maintained on IV antibiotics of vancomycin, Zosyn and Ciprodex otic drops, steroids. Left jaw pain improving. Afebrile, WBC 15.7. Review of systems: GeENERAL:Complains of fatigue, generalized weakness HEENT: Denies headache or focal deficits. Denies any dizziness or lightheadedness. Complains of left ear pain, with improving upper jaw pain. Denies epistaxis. Respiratory: Denies any increased shortness of breath. Cardiac: Denies any chest pain, palpitations. GI: Denies any nausea, vomiting, or diarrhea. Denies any abdominal tenderness. : Denies any dysuria. Psychiatry: Denies any anxiety or depression. Active Medications Acetaminophen (Tylenol Tab) 650 mg PO Q6HR PRN PRN Reason: Mild Pain or Fever > 100.5 Hydrocodone Bitart/Acetaminophen ([place] 5-325) 1 each PO Q4HR PRN PRN Reason: Moderate Pain Last Admin: 04/23/17 16:02 Dose: 1 each Alprazolam (Xanax) 0.25 mg PO TID PRN PRN Reason: Anxiety Ciprofloxacin/Dexamethasone (Ciprodex Otic Susp) 4 drops LEFT EAR BID [facility] Last Admin: 04/23/17 08:37 Dose: 4 drops Heparin Sodium (Porcine) (Heparin) 5,000 unit SQ Q12HR [facility] Last Admin: 04/23/17 08:35 Dose: 5,000 unit Hydromorphone HCl (Dilaudid) 0.5 mg IVP Q3HR PRN PRN Reason: Severe Pain Last Admin: 04/21/17 17:26 Dose: 0.5 mg Piperacillin/Tazobactam/ (Dextrose 3.375 gm/ IV Solution) 50 mls @ 12.5 mls/hr IVPB Q8HR [facility] Last Admin: 04/23/17 16:02 Dose: 12.5 mls/hr Sodium Chloride (Saline 0.9%) 1,000 mls @ 75 mls/hr IV .[id number] [facility] Last Admin: 04/23/17 14:56 Dose: 75 mls/hr Vancomycin HCl 2,500 mg/ (Sodium Chloride) 500 mls @ 167 mls/hr IVPB Q8H [facility] Last Admin: 04/23/17 12:35 Dose: 167 mls/hr Ibuprofen (Motrin) 600 mg PO Q6HR PRN PRN Reason: Mild Pain or Fever > 100.5 Last Admin: 04/23/17 10:33 Dose: 600 mg Methylprednisolone Sodium Succinate (Solu-Medrol) 60 mg IV Q12HR [facility] Stop: 04/24/17 12:00 Last Admin: 04/23/17 08:34 Dose: 60 mg Mupirocin (Bactroban Cream) 1 applic TOPICAL TID [facility] Last Admin: 04/23/17 16:07 Dose: 1 applic Naloxone HCl (Narcan) 0.2 mg IV Q2M PRN PRN Reason: Opioid Reversal Ondansetron HCl (Zofran) 4 mg IVP Q8HR PRN PRN Reason: Nausea And Vomiting Pantoprazole Sodium (Protonix) 40 mg PO AC-BRKFST [facility] Last Admin: 04/23/17 08:34 Dose: 40 mg Temazepam (Restoril) 15 mg PO HS PRN PRN Reason: Insomnia Objective - Vital Signs Vital signs: Vital Signs Temp 97.8 F 04/23/17 15:00 Pulse 79 04/23/17 15:00 Resp 19 04/23/17 15:00 BP 144/86 04/23/17 15:00 Pulse Ox 98 04/23/17 15:00 Intake & Output 04/22/17 04/23/17 04/23/17 18:59 06:59 18:59 Intake Total 3120 Balance 3120 Intake: IV 2300 Piperacillin-Tazobactam 3 50 .375 gm In Dextrose/Water 1 50ml.bag @ 12.5 mls/hr IVPB Q8HR [facility] Rx#: [id number] Vancomycin 2,250 mg In 2250 Sodium Chloride 0.9% 500 ml @ 167 mls/hr IVPB Q8H [facility] Rx#:[id number] Intake, IV Titration 500 Amount Vancomycin 2,250 mg In 500 Sodium Chloride 0.9% 500 ml @ 167 mls/hr IVPB Q8H [facility] Rx#:[id number] Oral 320 Other: Voiding Method Toilet # Voids 3 2 3 - Exam PHYSICAL EXAM: VITAL SIGNS: [As above] GENERAL: [Sitting up in bed, no acute distress, oral mucosa moist,] HEENT: [Pupils equal conjunctiva normal. Left ear and left upper jaw tenderness ] NECK: [Supple, no JVD] RESPIRATORY EFFORT:[ Increased] LUNGS: [Bilateral bases diminished, no wheezes rhonchi or crackles] CARDIOVASCULAR regular[ regular S1 and S2, no murmurs rubs or gallops, no edema] GI: [Abdomen soft, nontender, positive bowel sounds.] PSYCH: [Alert and oriented -3, mood and affect normal.] NEURO: No focal deficits, moves all 4 extremities, strength and sensation grossly intact - Labs CBC & Chem 7: 04/23/17 03:10 04/23/17 03:10 Labs: Abnormal Lab Results - Last 24 Hours (Table) 04/23/17 04/23/17 Range/Units 03:10 03:10 WBC 15.7 H (3.8-10.6) k/uL Neutrophils # 13.3 H (1.3-7.7) k/uL Potassium 5.3 H (3.5-5.1) mmol/L Chloride 109 H (98-107) mmol/L Glucose 162 H (74-99) mg/dL Microbiology - Last 24 Hours (Table) 04/20/17 19:00 Blood Culture - Preliminary Blood No Growth after 48 hours Assessment and Plan Plan: 1. [ Acute severe otitis externa on the left side with severe pain in failure of outpatient treatment]. 2. [ Leukocytosis secondary to the above]. 3. [ Increased total bilirubin]. 4. [ Morbid obesity, BMI 49.2]. 5. [ Hyponatremia, mild, resolved]. 6. [ Hypertension]. 7. [ Increased random blood sugar]. Plan: Continue on current medication regime , antibiotics, steroids, monitoring and symptomatic treatment. Maintain IV antibiotics as per infectious disease. We'll pneumonia cultures pending, follow closely. Follow closely with both ENT and infectious disease. Further recommendations to follow. The impression and plan of care has been dictated as directed. : I performed a H&P examination of this patient and discussed the same with the dictator. I agree with the dictator's note. Any additional findings/opinions/ etc. will be noted.
--- NOTE | 2017-04-23 21:52 | PN ---
DATE OF SERVICE: 04/23/2017 This 26-year-old gentleman who was admitted with left-sided external otitis is on broad-spectrum IV antibiotics. The white count is slightly elevated. The patient is being followed by ENT, also. Seen and evaluated the patient along with the nurse practitioner. Please refer to the nurse practitioner's notes and impressions documented as a scribe for further information. Further recommendations to follow. Cultures are negative so far.
--- NOTE | 2017-04-23 22:52 | PN ---
DATE OF SERVICE: 04/23/2017 REASON FOR FOLLOWUP: Left-sided otitis externa. INTERVAL HISTORY: The patient is afebrile. Overall pain and swelling to the left external ear is improved. No drainage. ( ) denies significant chest pain, shortness of breath or cough. No abdominal pain or diarrhea. On examination, blood pressure is 144/86 with a pulse of 79, temperature 97.8. He is 98% on room air. General description is a young male up in the bed in no distress. HEENT EXAMINATION: The left external ear overall swelling and redness have improved. No drainage. LUNGS: Unlabored breathing. Clear to auscultation anteriorly. HEART: S1, S2. Regular rate and rhythm. ABDOMEN: Soft. No tenderness. LABS: Hemoglobin is 14.7, white count 15.7 with a BUN of 15, creatinine 0.66. Wound cultures are so far pending. DIAGNOSTIC IMPRESSION AND PLAN: Patient with left otitis externa. Patient overall is responding to the Zosyn and vancomycin. That will be continued while waiting for the cultures to finalize to determine discharge antibiotics. Did have slight jump in the white count, more likely secondary to the steroids the patient is on. Continue supportive care.
[2017-04-24] MEDS: SODIUM CHLORIDE 0.9% 1,000 ML IV SCH (04:12)
[2017-04-24] MEDS: HYDROcodone/APAP 5-325MG 1 EACH TAB PO PRN ×3 (04:12→12:04)
[2017-04-24] MEDS: VANCOMYCIN 2,500 MG in SODIUM CHLORIDE 0.9% 500 ML IVPB SCH ×2 (04:12→12:06)
[2017-04-24] MEDS: IBUPROFEN 400 MG TAB PO PRN ×2 (06:13→12:15)
[2017-04-24 07:24] VITALS: BP 156/92; PULSE 54; RESP 20; TEMP 96.3
[2017-04-24] MEDS: methylPREDNISolone SOD SUCCI 125 MG/2 ML VIAL IV SCH (08:04)
[2017-04-24] MEDS: CIPROFLOXACIN-DEXAMETH 0.3-0.1% DROPS 7.5 ML BTL LEFT EAR SCH (08:04)
[2017-04-24] MEDS: HEPARIN SODIUM,PORCINE 5,000 UNIT/ML 1 ML VIAL SQ SCH (08:04)
[2017-04-24] MEDS: PIPERACILLIN-TAZOBACTAM 3.375 GM in DEXTROSE/WATER 1 50ML.BAG IVPB SCH (08:04)
[2017-04-24] MEDS: PANTOPRAZOLE 40 MG TABLET PO SCH (08:04)
[2017-04-24] MEDS: MUPIROCIN CALCIUM 2% CREAM 15 GM TUBE TOPICAL SCH (08:05)
[2017-04-24 08:29] LABS: Basophils % (A) 0 %; CH 31.2; CHCM 33.6; Eosinophils # (A) 0.1 k/uL (0-0.7); Eosinophils % (A) 0 %; HCT 42.3 % (39.0-53.0); HDW 2.88; HGB 14.4 gm/dL (13.0-17.5); Luc # (Auto) 0.23; Luc % (Auto) 1; Lymphocytes # (A) 2.2 k/uL (1.0-4.8); Lymphocytes % (A) 13 %; MCH 31.7 pg (25.0-35.0); MCHC 34.1 g/dL (31.0-37.0); MCV 93.2 fL (80.0-100.0); Mean Platelet Volume 6.9; Monocytes # (A) 0.6 k/uL (0-1.0); Monocytes % (A) 4 %; Neutrophils % (A) 81 %; RBC 4.54 m/uL (4.30-5.90); RDW 14.4 % (11.5-15.5)
[2017-04-24 08:36] LABS: Anion Gap 11 mmol/L; Blood Urea Nitrogen 13 mg/dL (9-20); Calcium 9.4 mg/dL (8.4-10.2); Carbon Dioxide 24 mmol/L (22-30); Chloride 105 mmol/L (98-107); Glucose 110 mg/dL (74-99); Non-African American GFR(MDRD) >60 (>60 ml/min/1.73 sqM); Potassium 4.7 mmol/L (3.5-5.1); Sodium 140 mmol/L (137-145)
--- NOTE | 2017-04-24 12:47 | PN ---
DATE OF SERVICE: 04/24/2017 Reason for followup is left otitis externa and media. INTERVAL HISTORY: The patient is afebrile. Swelling to the left external ear has improved. Patient denies significant chest pain, shortness of breath or cough. No abdominal pain or any diarrhea. On examination, blood pressure 156/92 with a pulse of 84, temperature 96.3. He is 99% on room air. General description is a middle-age male, lying in bed in no distress. HEENT EXAMINATION: Left external ear overall swelling and redness have improved. LUNGS: Unlabored breathing. Clear to auscultation anteriorly. HEART: S1, S2 with regular rate and rhythm. ABDOMEN: Soft, no tenderness. LABS: Hemoglobin is 14.4, white count is 16 with a BUN of 13, creatinine 0.71, vanco trough is low at 10.1. Cultures from the left ear so far negative. DIAGNOSTIC IMPRESSION AND PLAN: Patient with a left otitis externa plus a possible otitis media. Patient did show overall improvement on vancomycin and Zosyn. So far, cultures are negative of recent pathogen. Antibiotic will be adjusted to p.o. Keflex and Levaquin as the patient is insisting on going home with outpatient followup.
--- NOTE | 2017-04-24 18:26 | P.DS ---
Providers Date of admission: 04/20/17 19:40 Expected date of discharge: 04/24/17 Attending physician: Toni Carlisle Consults: 04/20/17 19:31 Consult Physician Stat Consulting Provider: Dino Orozco Consult Reason/Comments: Mastoiditis, severe otitis media/externa Do you want consulting provider notified?: Yes 04/20/17 23:28 Consult Physician Routine Consulting Provider: Radha Mcgraw Consult Reason/Comments: otitis externa, soft tissue swelling Do you want consulting provider notified?: Already Contacted Primary care physician: Stated None Dr. Javier Hospital Course: Final Diagnoses: 1. [ Acute severe otitis externa on the left side with severe pain in failure of outpatient treatment]. 2. [ Leukocytosis secondary to the above]. 3. Hypertension. 4. [ Morbid obesity, BMI 49.2]. Hospital course: This is a 26-year-old gentleman admitted with acute severe otitis externa on the left side with severe pain and failure of outpatient treatment and multiple other medical issues. Evaluated by ENT and infectious disease. Maintained on IV antibiotics of vancomycin, Zosyn and Ciprodex otic drops, steroids. Afebrile . Significant clinical improvement. Cultures so far negative of recent pathogen, patient insisting on going home with outpatient follow-up. Patient has been cleared by all consults for discharge patient is being discharged home in a stable condition with guarded prognosis. Microbiology 04/21/17 14:08 Ear - Left Gram Stain - Final 04/21/17 14:08 Ear - Left Wound Culture - Final 04/20/17 19:00 Blood Blood Culture - Preliminary No Growth after 72 hours The impression and plan of care has been dictated as directed as a scribe. : I performed a H&P examination of this patient and discussed the same with the dictator. I agree with the dictator's note. Any additional findings/opinions/ etc. will be noted. Patient Condition at Discharge: Stable Plan - Discharge Summary New Discharge Prescriptions: New Cephalexin [Keflex] 500 mg PO Q6HR #40 cap Levofloxacin [Levaquin] 750 mg PO DAILY #10 tab Ciprofloxacin-Dexameth [Ciprodex Otic Susp] 4 drops LEFT EAR BID bottle Ibuprofen [Motrin] 600 mg PO Q6HR PRN #42 tab PRN Reason: Pain Mupirocin Calcium 2% Cream [Bactroban 2% Cream] 1 applic TOPICAL TID dose Omeprazole Magnesium [Prilosec Otc] 20 mg PO DAILY #14 tablet. Continue traMADol HCl [Ultram] 50 mg PO Q6H PRN PRN Reason: Pain Neomycin/Polymyxin B/Hydrocort [Wdsdsxqt-Jlcukwnyf-Ls Ear Susp] 3 drops LEFT EAR TID Discontinued Amoxic-Pot Clav 875-125Mg [Augmentin 875-125] 1 tab PO Q12HR Discharge Medication List Neomycin/Polymyxin B/Hydrocort [Clfsufqo-Hdxeigzgj-Cx Ear Susp] 3 drops LEFT EAR TID 04/20/17 [History] traMADol HCl [Ultram] 50 mg PO Q6H PRN 04/20/17 [History] Cephalexin [Keflex] 500 mg PO Q6HR #40 cap 04/24/17 [Rx] Ciprofloxacin-Dexameth [Ciprodex Otic Susp] 4 drops LEFT EAR BID bottle [Rx] Ibuprofen [Motrin] 600 mg PO Q6HR PRN #42 tab 04/24/17 [Rx] Levofloxacin [Levaquin] 750 mg PO DAILY #10 tab 04/24/17 [Rx] Mupirocin Calcium 2% Cream [Bactroban 2% Cream] 1 applic TOPICAL TID dose 04/24 [Rx] Omeprazole Magnesium [Prilosec Otc] 20 mg PO DAILY #14 tablet. 04/24/17 [Rx] Follow up Appointment(s)/Referral(s): Juanito Javier MD [REFERRING] - 3 Days (please schedule prior to dc, New PCP) Dino Orozco DO [Doctor of Osteopathic Medicine] - 04/30/17 1:00 pm Radha Mcgraw MD [STAFF PHYSICIAN] - 1 Week (Office currently closed, please call for appointment. ) Ambulatory/Diagnostic Orders: Complete Blood Count w/diff [LAB.AMB] Time Frame: 3 Days, Location: Determined By Patient Patient Instructions/Handouts: Otitis Media (DC) Activity/Diet/Wound Care/Special Instructions: Low fat diet with yogurt. Discharge Disposition: HOME SELF-CARE
[2017-04-24] MEDS ORDERED: VANCOMYCIN TROUGH DUE 1 EACH MISC MISCELLANE ONE (19:00)
== END 2017-04-24 15:30 | disposition home or self-care (01) ==
LOC: EC 16:58 → 4MS4W 19:40
PROVIDERS: ADMIT Hospitalist; ATTEND Hospitalist
CPT/HCPCS: 36415; 70486; 80048; 80053; 80202; 82248; 85025; 87040; 87070; 87205; 96372; 96374; 99285

== ENCOUNTER → 2017-04-27 | Outpatient (CLI) | payer OTHER, BC ==
[2017-04-27 16:09] LABS: Basophils # (A) 0.1 k/uL (0-0.2); Basophils % (A) 1 %; CH 31.3; CHCM 33.9; Eosinophils # (A) 0.3 k/uL (0-0.7); Eosinophils % (A) 3 %; HCT 46.9 % (39.0-53.0); HDW 2.77; HGB 15.1 gm/dL (13.0-17.5); Luc # (Auto) 0.26; Luc % (Auto) 2; Lymphocytes # (A) 3.8 k/uL (1.0-4.8); Lymphocytes % (A) 28 %; MCH 29.9 pg (25.0-35.0); MCHC 32.2 g/dL (31.0-37.0); MCV 92.9 fL (80.0-100.0); Mean Platelet Volume 6.5; Monocytes # (A) 0.6 k/uL (0-1.0); Monocytes % (A) 5 %; Neutrophils # (A) 8.2 k/uL (1.3-7.7); Neutrophils % (A) 62 %; RBC 5.06 m/uL (4.30-5.90); RDW 14.7 % (11.5-15.5); WBC 13.3 k/uL (3.8-10.6); WBC (Perox) 13.55
== END | disposition home or self-care (01) ==
LOC: LABWHC1 15:50
PROVIDERS: ATTEND Nurse Practitioner
DX: H60.92 Unspecified otitis externa, left ear (principal)
CPT/HCPCS: 36415; 85025

== ENCOUNTER 2019-06-02 16:54 | Inpatient (IN) | payer BC, OTHER ==
[2019-06-02] MEDS ORDERED: cefTRIAXone IN SWFI 1,000 MG/10 ML SYRINGE IVP STA (17:43)
[2019-06-02] MEDS ORDERED: SODIUM CHLORIDE 0.9% 1,000 ML IV ONE (17:43)
[2019-06-02 18:30] LABS: Basophils # (A) 0.1 k/uL (0-0.2); Basophils % (A) 1 %; Eosinophils # (A) 0.2 k/uL (0-0.7); Eosinophils % (A) 2 %; HCT 42.3 % (39.0-53.0); HGB 14.1 gm/dL (13.0-17.5); Lymphocytes # (A) 2.6 k/uL (1.0-4.8); Lymphocytes % (A) 23 %; MCH 28.9 pg (25.0-35.0); MCHC 33.3 g/dL (31.0-37.0); MCV 86.7 fL (80.0-100.0); Mean Platelet Volume 6.6; Monocytes # (A) 0.5 k/uL (0-1.0); Monocytes % (A) 5 %; Neutrophils # (A) 7.8 k/uL (1.3-7.7); Neutrophils % (A) 69 %; Platelet Count 375 k/uL (150-450); RBC 4.88 m/uL (4.30-5.90); RDW 14.3 % (11.5-15.5); WBC 11.4 k/uL (3.8-10.6)
[2019-06-02 18:39] LABS: ALT 44 U/L (21-72); AST 34 U/L (17-59); African American GFR (CKD) >90 (>60 ml/min/1.73 sqM); Albumin 4.5 g/dL (3.5-5.0); Alkaline Phosphatase 101 U/L (38-126); Anion Gap 11 mmol/L; Blood Urea Nitrogen 14 mg/dL (9-20); Calcium 9.4 mg/dL (8.4-10.2); Carbon Dioxide 24 mmol/L (22-30); Chloride 106 mmol/L (98-107); Glucose 87 mg/dL (74-99); Potassium 4.1 mmol/L (3.5-5.1); Sodium 141 mmol/L (137-145); Total Bilirubin 0.8 mg/dL (0.2-1.3); Total Protein 7.5 g/dL (6.3-8.2)
--- NOTE | 2019-06-02 20:39 | US ---
EXAMINATION TYPE: US venous doppler duplex LE LT DATE OF EXAM: 06/02/2019 8:04 PM COMPARISON: NONE CLINICAL HISTORY: Pain. Pain x 5 days. Redness. No hx of DVT. Pt not on blood thinners. SIDE PERFORMED: Left TECHNIQUE: The lower extremity deep venous system is examined utilizing real time linear array sonog kelly with graded compression, doppler sonography and color-flow sonography. VESSELS IMAGED: External Iliac Vein (EIV) Common Femoral Vein Deep Femoral Vein Greater Saphenous Vein * Femoral Vein Popliteal Vein Small Saphenous Vein * Proximal Calf Veins (* superficial vessels) Left Leg: Limited study due to large body habitus and edema. No evidence of DVT at this time extendi ng from left proximal calf veins to EIV, although study is limited. Unable to determine if distal fem oral vein compresses. Hypoechoic areas seen left groin area. Largest measures: 1.9 x 2.1 x 1.6 cm. Cu rved probe used for some imaging. IMPRESSION: Markedly suboptimal study due to body habitus. No acute DVT is identified in images save d. Abnormal prominent lymph nodes left groin region are felt present which may want follow-up. Correl ate clinically.
[2019-06-02] MEDS ORDERED: NALOXONE 0.4 MG/ML 1 ML VIAL IV PRN (21:17)
[2019-06-02] MEDS ORDERED: ACETAMINOPHEN TAB 325 MG TAB PO PRN (21:17)
[2019-06-02] MEDS ORDERED: IBUPROFEN 400 MG TAB PO PRN (21:17)
--- NOTE | 2019-06-02 22:00 | ED ---
Extremity Problem HPI - General Source: patient, family Mode of arrival: ambulatory Limitations: no limitations <Jackelyn Severino - Last Filed: 06/02/19 22:54> <Penelope Delgado - Last Filed: 06/06/19 13:44> - General Chief complaint: Extremity Problem,Nontraumatic Stated complaint: lt leg pain Time Seen by Provider: 06/02/19 17:13 - History of Present Illness Initial comments: 29yo male presenting for chief complaint of left lower extremity pain and redness. Patient states that began noticing redness of the left lower extremity. He states he does have small scabbing on his skin. Patient states t hat the pain and redness has been increasing. He states mom has been monitoring a daily. We will likely swollen and red today family was concerned for infection. Patient denies DM, fever or chills night sweats full extension symptoms, recent surgery, denies numbmess, tingling loss of sensation, history of DVT, shortness of breath. Remaining ROS (-). Upon arrival patient appears well no signs of acute distress. Afebrile. (Jackelyn Severino) - Related Data Previous Rx's Medication Instructions Recorded Clindamycin [Cleocin] 300 mg PO TID 7 Days #21 capsule 06/05/19 Nystatin 100,000 Unit/gm Powd 1 applic TOPICAL BID #1 applic 06/05/19 [Mycostatin Powder] Allergies Allergy/AdvReac Type Severity Reaction Status Date / Time cephalexin [From Keflex] Allergy Rash/Hives Verified 06/04/19 10:17 Review of Systems ROS Other: All systems not noted in ROS Statement are negative. <Jackelyn Severino - Last Filed: 06/02/19 22:54> ROS Other: All systems not noted in ROS Statement are negative. <Penelope Delgado - Last Filed: 06/06/19 13:44> ROS Statement: Those systems with pertinent positive or pertinent negative responses have been documented in the HPI. Past Medical History Past Medical History: No Reported History Additional Past Medical History / Comment(s): sepsis from ear infection 2017 History of Any Multi-Drug Resistant Organisms: None Reported Past Surgical History: No Surgical Hx Reported, Adenoidectomy, Tonsillectomy Past Anesthesia/Blood Transfusion Reactions: No Reported Reaction Past Psychological History: No Psychological Hx Reported Smoking Status: Never smoker Past Alcohol Use History: None Reported Past Drug Use History: None Reported <Jackelyn Severino - Last Filed: 06/02/19 22:54> - Past Family History Mother Family Medical History: Congestive Heart Failure (CHF), Hypertension Father Family Medical History: Congestive Heart Failure (CHF), COPD, CVA/TIA <Penelope Delgado Janice - Last Filed: 06/06/19 13:44> General Exam Limitations: no limitations <Jackelyn Severino - Last Filed: 06/02/19 22:54> - General Exam Comments Initial Comments: General: The patient is awake and alert, in no distress, and does not appear acutely ill. Eye: Pupils are equal, round and reactive to light, extra-ocular movements are intact. No nystagmus. There is normal conjunctiva bilaterally. No signs of icterus. Ears, nose, mouth and throat: There are moist mucous membranes and no oral lesions. Neck: The neck is supple, there is no tenderness or JVD. Cardiovascular: There is a regular rate and rhythm. No murmur, rub or gallop is appreciated. Respiratory: Lungs are clear to auscultation, respirations are non-labored, breath sounds are equal. No wheezes, stridor, rales, or rhonchi. Gastrointestinal: Soft, non-distended, non-tender abdomen without masses or organomegaly noted. There is no rebound or guarding present. No CVA tenderness. Bowel sounds are unremarkable. Musculoskeletal: Normal ROM, no tenderness. Strength 5/5. Sensation intact. DP pulses equal bilaterally 2+. Neurological: A&O x 3. CN II-XII intact, There are no obvious motor or sensory deficits. Coordination appears grossly intact. Speech is normal. Skin: Skin is warm and dry. Scabbing noted over legs b/l. Erythema, wawrmth swelling circumferentially noted of the left LE. Psychiatric: Cooperative, appropriate mood & affect, normal judgment. (Mamta Severinojaelyn Posey) Course Vital Signs 06/02/19 06/02/19 06/02/19 17:18 18:28 21:20 Temperature 97.8 F 98.3 F Pulse Rate 110 H 96 98 Respiratory 18 16 18 Rate Blood Pressure 166/102 146/95 146/88 O2 Sat by Pulse 98 98 98 Oximetry 06/03/19 06/03/19 00:58 06:27 Temperature 98.6 F Pulse Rate 88 68 Respiratory 18 18 Rate Blood Pressure 158/92 132/89 O2 Sat by Pulse 98 100 Oximetry Medical Decision Making - Lab Data Result diagrams: 06/02/19 18:10 06/02/19 18:10 <Jackelyn Severino - Last Filed: 06/02/19 22:54> - Lab Data Result diagrams: 06/05/19 09:17 06/05/19 09:17 <Penelope Delgado - Last Filed: 06/06/19 13:44> - Medical Decision Making 39-year-old male presenting for left lower extremity swelling and redness. All presents skin with scabs. Negative Homans. Family consented a blood clot. Ultrasound negative for DVT. However there is evidence of cellulitis on physical examination. Warmth redness tenderness. Patient is not leukocytosis with left shift. Patient does not appear toxic. He is afebrile. Pt given ceftriaxone. IV fluids. Patient blood cultures pending. Patient evaluated by Dr. Delgado who admitted patient for IV abx. Patient agreeable with admission, remains hold in ER. Dr. Cm spoke with Dr. Noble admitting provider. (Jackelyn Severino) I personally saw and evaluated the patient. This is an obese gentleman with a history of admissions for cellulitis presenting with left lower extremity cellulitis that is circumferential. Given the patient's history of severe cellulitis in the past he doesn't feel comfortable being discharged home on oral antibiotics. Decision to admit, patient care was discussed with [facility] hospitalist. (Penelope Delgado) - Lab Data Lab Results 06/02/19 06/02/19 06/02/19 Range/Units 18:10 18:10 18:10 WBC 11.4 H (3.8-10.6) k/uL RBC 4.88 (4.30-5.90) m/uL Hgb 14.1 (13.0-17.5) gm/dL Hct 42.3 (39.0-53.0) % MCV 86.7 (80.0-100.0) fL MCH 28.9 (25.0-35.0) pg MCHC 33.3 (31.0-37.0) g/dL RDW 14.3 (11.5-15.5) % Plt Count 375 (150-450) k/uL Neutrophils % 69 % Neutrophils % (Manual) % Lymphocytes % 23 % Lymphocytes % (Manual) % Monocytes % 5 % Monocytes % (Manual) % Eosinophils % 2 % Eosinophils % (Manual) % Basophils % 1 % Neutrophils # 7.8 H (1.3-7.7) k/uL Neutrophils # (Manual) (1.3-7.7) k/uL Lymphocytes # 2.6 (1.0-4.8) k/uL Lymphocytes # (Manual) (1.0-4.8) k/uL Monocytes # 0.5 (0-1.0) k/uL Monocytes # (Manual) (0-1.0) k/uL Eosinophils # 0.2 (0-0.7) k/uL Eosinophils # (Manual) (0-0.7) k/uL Basophils # 0.1 (0-0.2) k/uL Nucleated RBCs (0-0) /100 WBC Manual Slide Review RBC Morphology Sodium 141 (137-145) mmol/L Potassium 4.1 (3.5-5.1) mmol/L Chloride 106 (98-107) mmol/L Carbon Dioxide 24 (22-30) mmol/L Anion Gap 11 mmol/L BUN 14 (9-20) mg/dL Creatinine 0.74 (0.66-1.25) mg/dL Est GFR (CKD-EPI)AfAm >90 (>60 ml/min/1.73 sqM) Est GFR (CKD-EPI)NonAf >90 (>60 ml/min/1.73 sqM) Glucose 87 (74-99) mg/dL Plasma Lactic Acid Alirio 1.2 (0.7-2.0) mmol/L Calcium 9.4 (8.4-10.2) mg/dL Total Bilirubin 0.8 (0.2-1.3) mg/dL AST 34 (17-59) U/L ALT 44 (21-72) U/L Alkaline Phosphatase 101 (38-126) U/L Total Protein 7.5 (6.3-8.2) g/dL Albumin 4.5 (3.5-5.0) g/dL Urine Color Urine Appearance (Clear) Urine pH (5.0-8.0) Ur Specific [place] (1.001-1.035) Urine Protein (Negative) Urine Glucose (UA) (Negative) Urine Ketones (Negative) Urine Blood (Negative) Urine Nitrite (Negative) Urine Bilirubin (Negative) Urine Urobilinogen (<2.0) mg/dL Ur Leukocyte Esterase (Negative) 06/03/19 06/03/19 06/03/19 Range/Units 10:30 10:30 14:28 WBC 8.8 (3.8-10.6) k/uL RBC 4.34 (4.30-5.90) m/uL Hgb 14.0 (13.0-17.5) gm/dL Hct 38.6 L (39.0-53.0) % MCV 89.0 (80.0-100.0) fL MCH 32.2 (25.0-35.0) pg MCHC 36.1 (31.0-37.0) g/dL RDW 14.6 (11.5-15.5) % Plt Count 347 (150-450) k/uL Neutrophils % % Neutrophils % (Manual) 67 % Lymphocytes % % Lymphocytes % (Manual) 24 % Monocytes % % Monocytes % (Manual) 7 % Eosinophils % % Eosinophils % (Manual) 2 % Basophils % % Neutrophils # (1.3-7.7) k/uL Neutrophils # (Manual) 5.90 (1.3-7.7) k/uL Lymphocytes # (1.0-4.8) k/uL Lymphocytes # (Manual) 2.11 (1.0-4.8) k/uL Monocytes # (0-1.0) k/uL Monocytes # (Manual) 0.62 (0-1.0) k/uL Eosinophils # (0-0.7) k/uL Eosinophils # (Manual) 0.18 (0-0.7) k/uL Basophils # (0-0.2) k/uL Nucleated RBCs 0 (0-0) /100 WBC Manual Slide Review Performed RBC Morphology Normal Sodium 138 (137-145) mmol/L Potassium 4.5 (3.5-5.1) mmol/L Chloride 106 (98-107) mmol/L Carbon Dioxide 26 (22-30) mmol/L Anion Gap 6 mmol/L BUN 12 (9-20) mg/dL Creatinine 0.62 L (0.66-1.25) mg/dL Est GFR (CKD-EPI)AfAm >90 (>60 ml/min/1.73 sqM) Est GFR (CKD-EPI)NonAf >90 (>60 ml/min/1.73 sqM) Glucose 102 H (74-99) mg/dL Plasma Lactic Acid Alirio (0.7-2.0) mmol/L Calcium 9.1 (8.4-10.2) mg/dL Total Bilirubin (0.2-1.3) mg/dL AST (17-59) U/L ALT (21-72) U/L Alkaline Phosphatase (38-126) U/L Total Protein (6.3-8.2) g/dL Albumin (3.5-5.0) g/dL Urine Color Yellow Urine Appearance Clear (Clear) Urine pH 6.5 (5.0-8.0) Ur Specific [place] 1.021 (1.001-1.035) Urine Protein Negative (Negative) Urine Glucose (UA) Negative (Negative) Urine Ketones Negative (Negative) Urine Blood Negative (Negative) Urine Nitrite Negative (Negative) Urine Bilirubin Negative (Negative) Urine Urobilinogen <2.0 (<2.0) mg/dL Ur Leukocyte Esterase Negative (Negative) 06/04/19 06/04/19 Range/Units 10:44 10:44 WBC 8.6 (3.8-10.6) k/uL RBC 4.97 (4.30-5.90) m/uL Hgb 14.1 (13.0-17.5) gm/dL Hct 43.7 (39.0-53.0) % MCV 88.0 (80.0-100.0) fL MCH 28.5 (25.0-35.0) pg MCHC 32.3 (31.0-37.0) g/dL RDW 14.3 (11.5-15.5) % Plt Count 353 (150-450) k/uL Neutrophils % 63 % Neutrophils % (Manual) % Lymphocytes % 26 % Lymphocytes % (Manual) % Monocytes % 5 % Monocytes % (Manual) % Eosinophils % 3 % Eosinophils % (Manual) % Basophils % 1 % Neutrophils # 5.4 (1.3-7.7) k/uL Neutrophils # (Manual) (1.3-7.7) k/uL Lymphocytes # 2.2 (1.0-4.8) k/uL Lymphocytes # (Manual) (1.0-4.8) k/uL Monocytes # 0.4 (0-1.0) k/uL Monocytes # (Manual) (0-1.0) k/uL Eosinophils # 0.2 (0-0.7) k/uL Eosinophils # (Manual) (0-0.7) k/uL Basophils # 0.1 (0-0.2) k/uL Nucleated RBCs (0-0) /100 WBC Manual Slide Review RBC Morphology Sodium 140 (137-145) mmol/L Potassium 4.2 (3.5-5.1) mmol/L Chloride 104 (98-107) mmol/L Carbon Dioxide 29 (22-30) mmol/L Anion Gap 7 mmol/L BUN 10 (9-20) mg/dL Creatinine 0.72 (0.66-1.25) mg/dL Est GFR (CKD-EPI)AfAm >90 (>60 ml/min/1.73 sqM) Est GFR (CKD-EPI)NonAf >90 (>60 ml/min/1.73 sqM) Glucose 82 (74-99) mg/dL Plasma Lactic Acid Alirio (0.7-2.0) mmol/L Calcium 9.2 (8.4-10.2) mg/dL Total Bilirubin (0.2-1.3) mg/dL AST (17-59) U/L ALT (21-72) U/L Alkaline Phosphatase (38-126) U/L Total Protein (6.3-8.2) g/dL Albumin (3.5-5.0) g/dL Urine Color Urine Appearance (Clear) Urine pH (5.0-8.0) Ur Specific [place] (1.001-1.035) Urine Protein (Negative) Urine Glucose (UA) (Negative) Urine Ketones (Negative) Urine Blood (Negative) Urine Nitrite (Negative) Urine Bilirubin (Negative) Urine Urobilinogen (<2.0) mg/dL Ur Leukocyte Esterase (Negative) Disposition Is patient prescribed a controlled substance at d/c from ED?: No Time of Disposition: 22:00 Decision to Admit Reason: Admit from EC Decision Date: 06/02/19 Decision Time: 22:00 <Jackelyn Severino - Last Filed: 06/02/19 22:54> <Penelope Delgado - Last Filed: 06/06/19 13:44> Clinical Impression: Cellulitis of left leg, Leukocytosis Disposition: ADMITTED IP TO THIS HOSP Condition: Stable
[2019-06-03] MEDS: HEPARIN SODIUM,PORCINE 5,000 UNIT/ML 1 ML VIAL SQ SCH ×4 (00:57→23:25)
[2019-06-03 09:25] VITALS: BMI 51.6
[2019-06-03] MEDS ORDERED: TEMAZEPAM 15 MG CAP PO PRN (11:25)
[2019-06-03] MEDS ORDERED: HYDROcodone/APAP 5-325MG 1 EACH TAB PO PRN (11:25)
[2019-06-03] MEDS ORDERED: ALPRAZolam 0.25 MG TAB PO PRN (11:25)
[2019-06-03] MEDS ORDERED: cloNIDine HCL 0.1 MG TAB PO PRN (11:26)
[2019-06-03 11:30] LABS: African American GFR (CKD) >90 (>60 ml/min/1.73 sqM); Anion Gap 6 mmol/L; Blood Urea Nitrogen 12 mg/dL (9-20); Calcium 9.1 mg/dL (8.4-10.2); Carbon Dioxide 26 mmol/L (22-30); Chloride 106 mmol/L (98-107); Glucose 102 mg/dL (74-99); Potassium 4.5 mmol/L (3.5-5.1); Sodium 138 mmol/L (137-145)
[2019-06-03 11:53] LABS: HCT 38.6 % (39.0-53.0); MCH 32.2 pg (25.0-35.0); MCHC 36.1 g/dL (31.0-37.0); Mean Platelet Volume 6.9; Platelet Count 347 k/uL (150-450); RBC 4.34 m/uL (4.30-5.90); RDW 14.6 % (11.5-15.5); WBC 8.8 k/uL (3.8-10.6)
[2019-06-03 13:38] LABS: Eosinophils # (M) 0.18 k/uL (0-0.7); Lymphocytes # (M) 2.11 k/uL (1.0-4.8); Monocytes # (M) 0.62 k/uL (0-1.0); Neutrophils % (M) 67 %; Nucleated Red Blood Cells 0 /100 WBC (0-0); Total Cells Counted 100
[2019-06-03 14:39] LABS: Appearance,Urine Clear (Clear); Bilirubin,Urine Negative (Negative); Blood,Urine Negative (Negative); Color,Urine Yellow; Glucose,Urine (UA) Negative (Negative); Ketones,Urine Negative (Negative); Leukocyte Esterase,Urine Negative (Negative); Nitrite,Urine Negative (Negative); PH, Urine 6.5 (5.0-8.0); Protein,Urine Negative (Negative); Specific Gravity,Urine 1.021 (1.001-1.035); Urobilinogen,Urine <2.0 mg/dL (<2.0)
[2019-06-03] MEDS: CLINDAMYCIN 900 MG in DEXTROSE 5% IN WATER 50 ML IVPB SCH ×4 (16:21→23:24)
--- NOTE | 2019-06-03 16:23 | HP ---
HISTORY AND PHYSICAL DATE OF SERVICE: 06/03/2019 CHIEF COMPLAINT: Right leg pain as well as cellulitis. HISTORY OF PRESENT ILLNESS: This 29-year-old gentleman with a past medical history of multiple medical problems, including adenoidectomy and tonsillectomy, had a previous episode of sepsis in 2006 resulting in an ear infection. The patient is not followed by any primary physician in the outpatient setting. 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 The patient noticed bumps on both feet and also noted pain and swelling of the left lower, especially in the posterior part, and the family was. The patient[was taken to [facility] and admitted for further evaluation and treatment. There is no history of any fever, rigor or chills. No history of headache, loss of consciousness, seizures. PAST MEDICAL HISTORY: 1. History of previous ear infection and sepsis, as mentioned earlier. 2. History of adenoidectomy and tonsillectomy. HOME MEDICATIONS: None. ALLERGIES: 1. AMOXICILLIN. 2. CEPHALEXIN. 3. AUGMENTIN. 4. PENICILLIN. FAMILY HISTORY: History of CHF and hypertension in the family. SOCIAL HISTORY: No history of smoking. No history of alcohol intake. REVIEW OF SYSTEMS: ENT: No diminished hearing. No diminished vision. CARDIOVASCULAR SYSTEM: No angina, palpitations. RESPIRATORY SYSTEM: No cough, hemoptysis. GI: No nausea, vomiting, diarrhea. : No dysuria or retention. NERVOUS SYSTEM: No numbness, weakness. ALLERGY/IMMUNOLOGY: No asthma, hayfever. MUSCULOSKELETAL: As mentioned earlier. HEMATOLOGY/ONCOLOGY: No history of anemia. ENDOCRINE: No history of diabetes, hypothyroidism. CONSTITUTIONAL: As mentioned earlier. DERMATOLOGY: Negative. RHEUMATOLOGY: Negative. PSYCHIATRY: As mentioned earlier. PHYSICAL EXAMINATION: Patient is alert and oriented x3. Pulse 89, blood pressure 157/102, respiration 18, temperature 98.1, pulse ox 100% on room air. HEENT: Conjunctivae normal. Oral mucosa moist. NECK: No jugular venous distention. CARDIOVASCULAR SYSTEM: S1, S2 muffled. RESPIRATORY SYSTEM: Breath sounds diminished at the bases. A few rhonchi. No crackles. ABDOMEN: Soft, obese, non-tender. No mass palpable. LEGS: Bilateral folliculitis present. Otherwise, significant erythema, tenderness, evidence of cellulitis of the left leg, mainly, in the posterior area with some induration and tenderness, also. NERVOUS SYSTEM: Higher functions as mentioned earlier. Moves all 4 limbs. No focal motor or sensory deficit. LYMPHATIC: No lymph node palpable in neck or axillae. SKIN: No ulcer, rash, bleeding. JOINTS: No active deforming arthropathy. LABS: WBC 11.4, hemoglobin 14.1. CBC noted. ASSESSMENT: 1. Acute left leg cellulitis. 2. History of recent external otitis and sepsis. 3. Obesity. 4. Hypertension. 5. History of adenoidectomy and tonsillectomy. RECOMMENDATIONS AND DISCUSSION: In this 29-year-old gentleman who presented with multiple medical issues, at this time I recommend to continue current management, continue symptomatic treatment, continue broad-spectrum IV antibiotics. Infectious disease evaluation. Follow the cultures. Otherwise, we will continue to monitor. The patient had features of sepsis previously. We will be consulting Infectious Disease as well. Prognosis is guarded because of multiple complex medical issues. Further recommendations to follow. MMODL / IJN: [id number] /
[2019-06-03] MEDS: NYSTATIN 100,000 UNIT/GM POWD 15 GM TOPICAL SCH (20:18)
[2019-06-03 22:50] VITALS: RESP 20
--- NOTE | 2019-06-03 23:54 | P.CONS ---
History of Present Illness - Reason for Consult Consult date: 06/03/19 Left lower extremity cellulitis Requesting physician: Toni Connor - Chief Complaint Left leg pain swelling and redness x few days - History of Present Illness Patient is a 29-year-old male presenting to the ER at [facility] with chief complaints of left leg pain swelling redness has been going on for a few days before presentation to the hospital, patient denies any history of any trauma or fall, the patient did have diffuse swelling and redness of the left leg currently with a blister on the open wound patient describing the pain to the left leg to be dull at times sharp almost 10 out of 10 by the time he presented to hospital, patient did not have fever however did have mildly elevated white count patient did have lower extremity Doppler was negative for DVT patient has been started on Rocephin 1 g daily infectious disease was consulted for further recommendation regarding antibiotic therapy patient also have history of multiple antibiotic ALLERGIES mostly with a rash no history of anaphylaxis Review of Systems Positive points has been mentioned in HPI rest of the systems are negative Past Medical History Past Medical History: No Reported History Additional Past Medical History / Comment(s): sepsis from ear infection 2017 History of Any Multi-Drug Resistant Organisms: None Reported Past Surgical History: Adenoidectomy, Tonsillectomy Past Anesthesia/Blood Transfusion Reactions: No Reported Reaction Past Psychological History: No Psychological Hx Reported Smoking Status: Never smoker Past Alcohol Use History: None Reported Past Drug Use History: None Reported - Past Family History Mother Family Medical History: Congestive Heart Failure (CHF), Hypertension Father Family Medical History: Congestive Heart Failure (CHF), COPD, CVA/TIA Medications and Allergies Home Medications Medication Instructions Recorded Confirmed Type No Known Home Medications 06/02/19 06/02/19 History Allergies Allergy/AdvReac Type Severity Reaction Status Date / Time amoxicillin [From Augmentin] Allergy Unknown Verified 06/02/19 21:54 cephalexin [From Keflex] Allergy Unknown Verified 06/02/19 21:54 clavulanic acid Allergy Unknown Verified 06/02/19 21:54 [From Augmentin] Penicillins Allergy Unknown Verified 06/02/19 21:54 Physical Exam Vitals: Vital Signs Temp Pulse Pulse Resp BP BP Pulse Ox 06/03/19 07:55 98.1 F 89 18 157/102 100 06/03/19 06:27 98.6 F 68 18 132/89 100 06/03/19 00:58 88 18 158/92 98 06/02/19 21:20 98.3 F 98 18 146/88 98 06/02/19 18:28 96 16 146/95 98 06/02/19 17:18 97.8 F 110 H 18 166/102 98 Intake and Output 06/02/19 06/03/19 06/03/19 22:59 06:59 14:59 Other: Weight 163.293 kg GENERAL DESCRIPTION: Middle-aged male lying in bed, no distress. No tachypnea or accessory muscle of respiration use. HEENT: Shows Pallor , no scleral icterus. Oral mucous membrane is dry. No pharyngeal erythema or thrush NECK: Trachea central, no thyromegaly. LUNGS: Unlabored breathing. Clear to auscultation anteriorly. No wheeze or crackle. HEART: S1, S2, regular rate and rhythm. No loud murmur ABDOMEN: Soft, no tenderness , guarding or rigidity, no organomegaly EXTREMITIES: Right leg with diffuse swelling and redness no open wound or any drainage, patient did have evidence of athlete's foot SKIN: No rash, no masses palpable. NEUROLOGICAL: The patient is awake, alert, oriented x3, mood and affect normal. Results CBC & Chem 7: 06/03/19 10:30 06/03/19 10:30 Labs: Abnormal Lab Results - Last 24 Hours (Table) 06/02/19 06/03/19 06/03/19 Range/Units 18:10 10:30 10:30 WBC 11.4 H (3.8-10.6) k/uL Hct 38.6 L (39.0-53.0) % Neutrophils # 7.8 H (1.3-7.7) k/uL Creatinine 0.62 L (0.66-1.25) mg/dL Glucose 102 H (74-99) mg/dL Assessment and Plan Assessment: 1-patient with acute left lower extremity cellulitis in this patient who did have diffuse swelling and redness also with evidence of athlete's foot likely pointing towards streptococcal cellulitis clinically doubt MRSA lower extremity infection 2-Patient with multiple antibiotics ALLERGIES that will limit the number of antibiotic safe to use Plan: 1-discontinue the Rocephin 2-marked the area of the redness 3-start the patient on clindamycin 900 mg every 8 hours 4-nystatin powder in between the toes we will follow on clinical condition and culture to further adjust medication if needed Thank you for this consultation will follow this patient along with you Time with Patient: Greater than 30
[2019-06-04] MEDS: NYSTATIN 100,000 UNIT/GM POWD 15 GM TOPICAL SCH ×2 (08:00→21:22)
[2019-06-04] MEDS: CLINDAMYCIN 900 MG in DEXTROSE 5% IN WATER 50 ML IVPB SCH ×4 (08:02→15:27)
[2019-06-04] MEDS: HEPARIN SODIUM,PORCINE 5,000 UNIT/ML 1 ML VIAL SQ SCH ×2 (08:03→15:27)
[2019-06-04] MEDS: PANTOPRAZOLE 40 MG TABLET PO SCH (08:03)
[2019-06-04 11:10] LABS: Basophils # (A) 0.1 k/uL (0-0.2); Basophils % (A) 1 %; Eosinophils # (A) 0.2 k/uL (0-0.7); Eosinophils % (A) 3 %; HCT 43.7 % (39.0-53.0); HGB 14.1 gm/dL (13.0-17.5); Lymphocytes # (A) 2.2 k/uL (1.0-4.8); Lymphocytes % (A) 26 %; MCH 28.5 pg (25.0-35.0); MCHC 32.3 g/dL (31.0-37.0); Mean Platelet Volume 6.6; Monocytes # (A) 0.4 k/uL (0-1.0); Monocytes % (A) 5 %; Neutrophils # (A) 5.4 k/uL (1.3-7.7); Neutrophils % (A) 63 %; Platelet Count 353 k/uL (150-450); RBC 4.97 m/uL (4.30-5.90); RDW 14.3 % (11.5-15.5); WBC 8.6 k/uL (3.8-10.6)
[2019-06-04 11:25] LABS: African American GFR (CKD) >90 (>60 ml/min/1.73 sqM); Anion Gap 7 mmol/L; Blood Urea Nitrogen 10 mg/dL (9-20); Calcium 9.2 mg/dL (8.4-10.2); Carbon Dioxide 29 mmol/L (22-30); Chloride 104 mmol/L (98-107); Glucose 82 mg/dL (74-99); Potassium 4.2 mmol/L (3.5-5.1); Sodium 140 mmol/L (137-145)
--- NOTE | 2019-06-04 16:43 | PN ---
PROGRESS NOTE DATE OF SERVICE: 06/04/2019 DATE OF SERVICE: This 29-year-old gentleman who was admitted with significant cellulitis, severe pain also of the right leg. The patient is on IV antibiotics. Please note the patient previously had external otitis with sepsis previously. The patient has ALLERGY TO MULTIPLE MEDICATION. Also, Dr. Mcgraw is following the patient. The patient is on IV antibiotics. No chest pain. No palpitations. No fever. PHYSICAL EXAM: Alert and oriented x3. Pulse 77. Blood pressure 164/96, respiration 20, temperature 98.4, pulse ox 98% on room air. HEENT: Conjunctivae normal. NECK: No jugular venous distention. CARDIOVASCULAR SYSTEM: S1, S2 muffled. RESPIRATORY SYSTEM: Breath sounds diminished at the bases. Scattered rhonchi. ABDOMEN: Soft, nontender. NERVOUS SYSTEM: No focal deficits. LABORATORY DATA: CBC, BMP within normal limits. ASSESSMENT: 1. Acute left leg cellulitis with leg swelling and pain. 2. History of recent external otitis and sepsis. 3. Obesity. 4. Hypertension. 5. History of adenoidectomy and tonsillectomy. RECOMMENDATIONS AND DISCUSSION: Recommend to continue current medications, management and symptomatic treatment. Cultures negative. Otherwise currently patient is on intravenous IV antibiotics including clindamycin. We will continue to monitor. Guarded prognosis because of multiple complex medical issues. Further recommendations to follow. MMODL / IJN: [id number] /
--- NOTE | 2019-06-04 16:55 | PN ---
PROGRESS NOTE DATE OF SERVICE: 06/04/2019. REASON FOR FOLLOWUP: Left lower extremity cellulitis with athlete's foot and MULTIPLE ANTIBIOTIC ALLERGIES. INTERVAL HISTORY: The patient is currently afebrile. The patient has been breathing comfortably. Left lower extremity pain decreased in intensity. Mild pain on the left posterior thigh area; redness has slightly decreased. Currently with no open wound or any drainage. Denies having any chest pain, shortness of breath or cough. PHYSICAL EXAMINATION: Blood pressure is 164/96, pulse of 77, temperature 98.4. He is 99% on room air. General description is a young male lying in bed in no distress. RESPIRATORY SYSTEM: Unlabored breathing. Clear to auscultation anteriorly. HEART: S1, S2. Regular rate and rhythm. ABDOMEN: Soft. No tenderness. Left leg swelling and redness have decreased. DIAGNOSTIC IMPRESSION AND PLAN: 1. Patient with acute left lower extremity cellulitis in this patient who did have diffuse swelling and redness. The patient also had evidence of athlete's foot with MULTIPLE ANTIBIOTIC ALLERGIES. Plan at this time is to switch him to continue with IV clindamycin for another 24 hours, and if the patient continues to improve, hopefully finish therapy with oral antibiotics. Continue with supportive care. 2. Athlete's foot. Local care with nystatin cream. Continue supportive care. MMODL / IJN: [id number] /
[2019-06-04 22:30] VITALS: TEMP 97.7
[2019-06-05] MEDS: CLINDAMYCIN 900 MG in DEXTROSE 5% IN WATER 50 ML IVPB SCH ×4 (00:26→09:07)
[2019-06-05] MEDS: HEPARIN SODIUM,PORCINE 5,000 UNIT/ML 1 ML VIAL SQ SCH ×2 (00:26→09:07)
[2019-06-05 06:14] VITALS: BP 153/93; PULSE 68
[2019-06-05] MEDS: PANTOPRAZOLE 40 MG TABLET PO SCH (09:07)
[2019-06-05] MEDS: NYSTATIN 100,000 UNIT/GM POWD 15 GM TOPICAL SCH (09:07)
[2019-06-05 10:01] LABS: Basophils # (A) 0.1 k/uL (0-0.2); Basophils % (A) 1 %; Eosinophils # (A) 0.3 k/uL (0-0.7); Eosinophils % (A) 3 %; HCT 43.8 % (39.0-53.0); HGB 14.6 gm/dL (13.0-17.5); Lymphocytes % (A) 25 %; MCH 29.1 pg (25.0-35.0); MCHC 33.4 g/dL (31.0-37.0); MCV 87.1 fL (80.0-100.0); Mean Platelet Volume 6.6; Monocytes # (A) 0.3 k/uL (0-1.0); Monocytes % (A) 4 %; Neutrophils # (A) 5.3 k/uL (1.3-7.7); Neutrophils % (A) 66 %; Platelet Count 365 k/uL (150-450); RBC 5.03 m/uL (4.30-5.90); RDW 14.1 % (11.5-15.5)
[2019-06-05 10:09] LABS: African American GFR (CKD) >90 (>60 ml/min/1.73 sqM); Anion Gap 6 mmol/L; Blood Urea Nitrogen 9 mg/dL (9-20); Calcium 9.2 mg/dL (8.4-10.2); Carbon Dioxide 29 mmol/L (22-30); Chloride 104 mmol/L (98-107); Glucose 114 mg/dL (74-99); Potassium 4.3 mmol/L (3.5-5.1); Sodium 139 mmol/L (137-145)
--- NOTE | 2019-06-05 11:42 | P.DS ---
Providers Date of admission: 06/04/19 15:30 Expected date of discharge: 06/05/19 Attending physician: My Burrell Consults: 06/03/19 11:25 Consult Physician Routine Consulting Provider: Radha Mcgraw Consult Reason/Comments: cellulitis Do you want consulting provider notified?: Yes Primary care physician: Stated None Hospital Course: Final diagnosis Acute left leg cellulitis with leg swelling and pain Athlete's foot of bilateral feet History of recent external otitis and sepsis Obesity Hypertension History of adenoidectomy and tonsillectomy Discharge disposition The patient is being discharged in a stable condition with guarded prognosis to home and will follow-up with infectious disease office in one week. Oral antibiotics will be continued for course of 1 week per infectious disease recommendations. History of present illness This is a 29-year-old male who was recently admitted for cellulitis of the left leg. The patient was on IV antibiotics per infectious disease and showing improvement and per infectious disease recommendations the patient will be able to go home on a one-week course of oral clindamycin as well as nystatin powder. The patient will follow-up in the clinic in 1 week. Patient denies any shortness of breath, chest pain, or palpitations at this time. Patient denies any nausea or vomiting. Patient remains afebrile. Patient is looking forward to going home today. Patient states that the left leg and calf feel much better and has improved. Left leg swelling and redness has improved. On exam vital signs are stable. Blood pressure is 153/93, heart rate is 68, respirations are 20 and non-labored, temperature is 97.7F, oxygen saturation is 99% on room air. Cardio S1 and S2 are normal. Respiratory system is clear to auscultation. Abdomen is soft, obese, non-tender. Nervous system shows no focal deficits and gait is steady. Please refer to the medication reconciliation sheet for list of medications. Patient Condition at Discharge: Stable Plan - Discharge Summary Discharge Rx Participant: No New Discharge Prescriptions: New Clindamycin [Cleocin] 300 mg PO TID 7 Days #21 capsule Nystatin 100,000 Unit/gm Powd [Mycostatin Powder] 1 applic TOPICAL BID #1 applic Discharge Medication List Clindamycin [Cleocin] 300 mg PO TID 7 Days #21 capsule 06/05/19 [Rx] Nystatin 100,000 Unit/gm Powd [Mycostatin Powder] 1 applic TOPICAL BID #1 applic 06/05/19 [Rx] Follow up Appointment(s)/Referral(s): Juanito Javier MD [REFERRING] - 1 Week Radha Mcgraw MD [STAFF PHYSICIAN] - 1 Week Patient Instructions/Handouts: Cellulitis (DC) Activity/Diet/Wound Care/Special Instructions: Activity limited until follow-up continue current diet Continue taking all of antibiotics until complete Use the Nystatin powder in between toes until follow-up with Dr. Mcgraw Follow up with Dr. Mcgraw in one week.
--- NOTE | 2019-06-05 12:55 | PN ---
PROGRESS NOTE DATE OF SERVICE: 06/05/2019 REASON FOR FOLLOWUP: Left lower extremity cellulitis and athlete's foot. INTERVAL HISTORY: The patient is currently afebrile. Patient has been breathing comfortably. Denies having any chest pain or cough. No abdominal pain. Pain to the left leg has improved. PHYSICAL EXAMINATION: Blood pressure 153/93 with a pulse of 68, temperature 97.7, he is 99% on room air. General description is a middle-aged male, lying in bed in no distress. RESPIRATORY SYSTEM: Unlabored breathing, clear to auscultation anteriorly. HEART: S1, S2. Regular rate and rhythm. ABDOMEN: Soft, no tenderness. Left leg swelling and redness has improved. LABS: White count normal at 8.0, creatinine 0.73. DIAGNOSTIC IMPRESSION AND PLAN: Patient with acute left lower extremity cellulitis. The patient did have diffuse swelling and redness likely streptococcal with the patient currently covered with clindamycin p.o. 300 every 8 hours for 7 days, Nystatin in between the toes twice a day for 7 days. Follow up in the office in 1 week. Advised to increase his probiotic and while on antibiotic. Continue supportive care. MMODL / IJN: [id number] /
== END 2019-06-05 14:47 | disposition home or self-care (01) | DRG 603 ==
LOC: EC 16:54 → 4MS4W 21:17 → OBSVTOIN 06-04 15:30
PROVIDERS: ADMIT Internal Medicine; ATTEND Internal Medicine
DX: L03.116 Cellulitis of left lower limb (principal); Z68.43 Body mass index [BMI] 50.0-59.9, adult; B35.3 Tinea pedis; E66.9 Obesity, unspecified; I10 Essential (primary) hypertension; B95.5 Unspecified streptococcus as the cause of diseases classified elsewhere; Z88.1 Allergy status to other antibiotic agents; Z88.0 Allergy status to penicillin; Z86.19 Personal history of other infectious and parasitic diseases; Z82.49 Family history of ischemic heart disease and other diseases of the circulatory system; Z82.5 Family history of asthma and other chronic lower respiratory diseases; Z90.89 Acquired absence of other organs
CPT/HCPCS: 36415; 80048; 80053; 81003; 83605; 85025; 87040; 87086; 96361; 96372; 96374; 99284

== ENCOUNTER 2020-05-30 14:57 | Emergency (ER) | payer BC ==
[2020-05-30 15:07] VITALS: BP 199/126; PULSE 100; RESP 18; TEMP 98
[2020-05-30] MEDS ORDERED: AMOXIC-POT CLAV 875-125MG 1 EACH TAB PO STA (15:15)
--- NOTE | 2020-05-30 15:25 | ED ---
ENT HPI - General Chief complaint: Dental/Oral Stated complaint: dental abscess Time Seen by Provider: 05/30/20 15:07 Source: patient Mode of arrival: ambulatory Limitations: no limitations - History of Present Illness Initial comments: Patient is a 30-year-old male presenting to emergency with chief complaint of dental pain. Patient states about one week ago he's noticed his dental infection and right upper jaw is getting more tender. Patient reports about 2 days ago he felt a pocket of pus rupture. Patient states initially there was some relief symptoms, however since then he has developed some right-sided facial swelling. Denies any night sweats or chills. States he has not seen a dentist in many years. Denies any tenderness on the floor the mouth or in the seven-day blurry vision. Patient is not a diabetic. - Related Data Previous Rx's Medication Instructions Recorded Clindamycin [Cleocin] 300 mg PO TID 7 Days #21 capsule 06/05/19 Nystatin 100,000 Unit/gm Powd 1 applic TOPICAL BID #1 applic 06/05/19 [Mycostatin Powder] Amoxicillin/Potassium Clav 1 tab PO Q12HR #20 tab 05/30/20 [Augmentin 875-125 Tablet] Allergies Allergy/AdvReac Type Severity Reaction Status Date / Time cephalexin [From Keflex] Allergy Rash/Hives Verified 05/30/20 15:06 Review of Systems ROS Statement: Those systems with pertinent positive or pertinent negative responses have been documented in the HPI. ROS Other: All systems not noted in ROS Statement are negative. Past Medical History Past Medical History: No Reported History Additional Past Medical History / Comment(s): sepsis from ear infection 2017 History of Any Multi-Drug Resistant Organisms: None Reported Past Surgical History: Adenoidectomy, Tonsillectomy Past Anesthesia/Blood Transfusion Reactions: No Reported Reaction Past Psychological History: No Psychological Hx Reported Smoking Status: Never smoker Past Alcohol Use History: None Reported Past Drug Use History: None Reported - Past Family History Mother Family Medical History: Congestive Heart Failure (CHF), Hypertension Father Family Medical History: Congestive Heart Failure (CHF), COPD, CVA/TIA General Exam Limitations: no limitations General appearance: alert, in no apparent distress, obese Head exam: Present: atraumatic, normocephalic, normal inspection Eye exam: Present: normal appearance, PERRL, EOMI Pupils: Present: normal accommodation ENT exam: Present: normal exam, normal oropharynx (No signs of a dental abscess. There appears to be gingival irritation and erythema in the right upper gumline), mucous membranes moist, TM's normal bilaterally, normal external ear exam, other (Mild, right-sided facial swelling. No signs of overlying cellulitic skin changes.) Neck exam: Present: normal inspection, full ROM. Absent: tenderness, lymphadenopathy Respiratory exam: Present: normal lung sounds bilaterally. Absent: respiratory distress, wheezes Cardiovascular Exam: Present: regular rate, normal rhythm, normal heart sounds Extremities exam: Present: normal inspection, full ROM. Absent: tenderness Back exam: Present: normal inspection, full ROM. Absent: tenderness Neurological exam: Present: alert, oriented X3, normal gait Psychiatric exam: Present: normal affect, normal mood. Absent: depressed Skin exam: Present: warm, dry, intact, normal color Course Vital Signs 05/30/20 15:01 Temperature 98 F Pulse Rate 100 Respiratory 18 Rate Blood Pressure 199/126 O2 Sat by Pulse 99 Oximetry Medical Decision Making - Medical Decision Making Patient is a 30-year-old male presenting to the emergency department with chief complaint of dental pain. On exam there is no signs of a dental abscess, however there appears to be inflammation along the gumline of the right upper region of the oral cavity. No signs of Corey's angina. Patient advised to apply cold compress to starts to help with the swelling. I advised to alternate between Tylenol or Motrin for pain control. Patient started on Augmentin in the ED. Will be discharged with a 10 day course of Augmentin. He was advised to follow with a dentist. Return parameters thoroughly discussed with patient was understanding and agreeable. Case discussed with physician. Disposition Clinical Impression: Dental infection Disposition: HOME SELF-CARE Condition: Stable Instructions (If sedation given, give patient instructions): Toothache (ED), Dental Abscess (ED) Additional Instructions: Take prescribed medication as directed. Apply ice compress to minimize his symptoms. Alternate between Tylenol and Motrin for pain control. Follow-up with a dentist. Return to emergency department if symptoms worsen. Prescriptions: Amoxicillin/Potassium Clav [Augmentin 875-125 Tablet] 1 tab PO Q12HR #20 tab Is patient prescribed a controlled substance at d/c from ED?: No Referrals: None,Stated [Primary Care Provider] - 1-2 days Time of Disposition: 15:16
== END 2020-05-30 15:33 | disposition home or self-care (01) ==
LOC: EC 14:57
DX: K04.7 Periapical abscess without sinus (principal); Z88.1 Allergy status to other antibiotic agents
CPT/HCPCS: 99283

== ENCOUNTER 2021-01-24 13:56 | Emergency (ER) | payer BC ==
[2021-01-24 14:04] VITALS: BP 194/107; PULSE 99; RESP 18; TEMP 98.1
--- NOTE | 2021-01-24 14:49 | ED ---
ENT HPI - General Chief complaint: ENT Stated complaint: Ear Pain Time Seen by Provider: 01/24/21 14:16 Source: patient Mode of arrival: ambulatory Limitations: no limitations - History of Present Illness Initial comments: Patient is a 30-year-old male presenting to the emergency Department with complaints of left ear pain for the past 2-3 days. Patient states last time he had ear pain he developed "sepsis from it." Denies any surgeries of his ears. Denies any fevers or chills, no coughing, no nasal drainage. He denies any nausea or vomiting. He denies any injuries or trauma. He has no further complaints at this time. - Related Data Previous Rx's Medication Instructions Recorded Clindamycin [Cleocin] 300 mg PO TID 7 Days #21 capsule 06/05/19 Nystatin 100,000 Unit/gm Powd 1 applic TOPICAL BID #1 applic 06/05/19 [Mycostatin Powder] Amoxicillin/Potassium Clav 1 tab PO Q12HR #20 tab 05/30/20 [Augmentin 875-125 Tablet] Amoxicillin 500 mg PO BID 5 Days #10 capsule 01/24/21 Abskzfqj-Zwctepjby-Ia Otic 4 drops BOTH EARS TID 7 Days #1 01/24/21 [Cortisporin Otic Soln] bottle Allergies Allergy/AdvReac Type Severity Reaction Status Date / Time cephalexin [From Keflex] Allergy Rash/Hives Verified 01/24/21 14:04 Review of Systems ROS Statement: Those systems with pertinent positive or pertinent negative responses have been documented in the HPI. ROS Other: All systems not noted in ROS Statement are negative. Past Medical History Past Medical History: No Reported History Additional Past Medical History / Comment(s): sepsis from ear infection 2017 History of Any Multi-Drug Resistant Organisms: None Reported Past Surgical History: Adenoidectomy, Tonsillectomy Past Anesthesia/Blood Transfusion Reactions: No Reported Reaction Past Psychological History: No Psychological Hx Reported Smoking Status: Never smoker Past Alcohol Use History: None Reported Past Drug Use History: None Reported - Past Family History Mother Family Medical History: Congestive Heart Failure (CHF), Hypertension Father Family Medical History: Congestive Heart Failure (CHF), COPD, CVA/TIA General Exam - General Exam Comments Initial Comments: GENERAL: Patient is well-developed and well-nourished. Patient is nontoxic and in no acute distress. HEAD: Atraumatic, normocephalic. EYES: Pupils equal round and reactive to light, extraocular movements intact, sclera anicteric, conjunctiva are normal. Eyelids were unremarkable. ENT: TMs normal, bilateral ear canals are erythematous, drainage, consistent with otitis externa, left worse than the right. nares patent, oropharynx clear without exudates. Moist mucous membranes. NECK: Normal range of motion, supple without lymphadenopathy or JVD. LUNGS: Unlabored respirations. Breath sounds clear to auscultation bilaterally and equal. No wheezes rales or rhonchi. HEART: Regular rate and rhythm without murmurs, rubs or gallops. ABDOMEN: Soft, nontender, normoactive bowel sounds. No guarding, no rebound. No masses appreciated. : Deferred MUSCULOSKELETAL: Normal extremities with adequate strength and normal range of motion, no pitting or edema. No clubbing or cyanosis. NEUROLOGICAL: Patient is alert and oriented x 3. Motor and sensory are also intact. Cranial nerves II through XII grossly intact. Symmetrical smile. Normal speech, normal gait. PSYCH: Normal mood, normal affect. SKIN: Warm, Dry, normal turgor, no rashes or lesions noted. Limitations: no limitations Course Vital Signs 01/24/21 14:01 Temperature 98.1 F Pulse Rate 99 Respiratory 18 Rate Blood Pressure 194/107 O2 Sat by Pulse 97 Oximetry Medical Decision Making - Medical Decision Making Patient is a 30-year-old male presenting for left ear pain 2-3 days. No fevers, no other symptoms or complaints. His vitals are stable. On exam he has bilateral otitis externa, left greater than the right. Patient be started on antibiotic eardrops as well as a short course of oral antibiotics. Patient is stable for discharge. He can follow-up with his regular doctor. Patient is in agreement this plan of care. Return parameters were discussed with the patient and he verbalized understanding. Case discussed with Dr. Colbert. Disposition Clinical Impression: Bilateral otitis externa Disposition: HOME SELF-CARE Condition: Stable Instructions (If sedation given, give patient instructions): Otitis Externa (ED) Additional Instructions: Please return to the Emergency Department if symptoms worsen or any other concerns. Take antibiotics as prescribed. Use eardrops as prescribed. Recommend Tylenol or Motrin for any discomfort. Follow-up with your regular family doctor. Prescriptions: Amoxicillin 500 mg PO BID 5 Days #10 capsule Wzuxkenc-Xhrisdjom-Yj Otic [Cortisporin Otic Soln] 4 drops BOTH EARS TID 7 Days #1 bottle Is patient prescribed a controlled substance at d/c from ED?: No Referrals: None,Stated [Primary Care Provider] - 1-2 days
== END 2021-01-24 15:10 | disposition home or self-care (01) ==
LOC: EC 13:56
DX: H60.93 Unspecified otitis externa, bilateral (principal)
CPT/HCPCS: 99282

== ENCOUNTER 2021-03-27 17:00 | Emergency (ER) | payer BC ==
[2021-03-27 17:04] VITALS: PULSE 90; RESP 18; TEMP 98.2
[2021-03-27] MEDS ORDERED: OXYMETAZOLINE 0.05% NASL SPRAY 1 SPRAY BOTTLE NASAL STA (17:27)
[2021-03-27 17:32] VITALS: BP 156/106
--- NOTE | 2021-03-27 17:34 | ED ---
General Adult HPI - General Chief complaint: ENT Stated complaint: Nose bleed Time Seen by Provider: 03/27/21 17:05 Source: patient, RN notes reviewed Mode of arrival: ambulatory Limitations: no limitations - History of Present Illness Initial comments: 22-year-old male presents to the emergency room for chief complaint of nosebleed. Patient reports her past 4 days he has had nose bleeding on and off. Patient reports that today started around 2:30 and he put a piece of tissue in his nose and has not taken it out since. Patient denies any blood going down his throat. Pt denies blood thinners.Patient has no other complaints at this time including shortness of breath, chest pain, abdominal pain, nausea or vomiting, headache, or visual changes. - Related Data Previous Rx's Medication Instructions Recorded Clindamycin [Cleocin] 300 mg PO TID 7 Days #21 capsule 06/05/19 Nystatin 100,000 Unit/gm Powd 1 applic TOPICAL BID #1 applic 06/05/19 [Mycostatin Powder] Amoxicillin/Potassium Clav 1 tab PO Q12HR #20 tab 05/30/20 [Augmentin 875-125 Tablet] Amoxicillin 500 mg PO BID 5 Days #10 capsule 01/24/21 Qgwnywvw-Kbbqoybns-Iy Otic 4 drops BOTH EARS TID 7 Days #1 01/24/21 [Cortisporin Otic Soln] bottle Allergies Allergy/AdvReac Type Severity Reaction Status Date / Time cephalexin [From Keflex] Allergy Rash/Hives Verified 03/27/21 17:01 Review of Systems ROS Statement: Those systems with pertinent positive or pertinent negative responses have been documented in the HPI. ROS Other: All systems not noted in ROS Statement are negative. Past Medical History Past Medical History: No Reported History Additional Past Medical History / Comment(s): sepsis from ear infection 2017 History of Any Multi-Drug Resistant Organisms: None Reported Past Surgical History: Adenoidectomy, Tonsillectomy Past Anesthesia/Blood Transfusion Reactions: No Reported Reaction Past Psychological History: No Psychological Hx Reported Smoking Status: Never smoker Past Alcohol Use History: None Reported Past Drug Use History: None Reported - Past Family History Mother Family Medical History: Congestive Heart Failure (CHF), Hypertension Father Family Medical History: Congestive Heart Failure (CHF), COPD, CVA/TIA General Exam Limitations: no limitations General appearance: alert, in no apparent distress Head exam: Present: atraumatic, normocephalic, normal inspection Eye exam: Present: normal appearance, PERRL, EOMI. Absent: scleral icterus, conjunctival injection ENT exam: Present: normal exam, normal oropharynx, mucous membranes moist, other (No active nasal bleeding at this time.) Neck exam: Present: normal inspection. Absent: tenderness, meningismus, lymphadenopathy Respiratory exam: Present: normal lung sounds bilaterally. Absent: respiratory distress, wheezes, rales, rhonchi, stridor Cardiovascular Exam: Present: regular rate, normal rhythm, normal heart sounds. Absent: systolic murmur, diastolic murmur, rubs, gallop, clicks Course Vital Signs 03/27/21 17:01 Temperature 98.2 F Pulse Rate 90 Respiratory 18 Rate Blood Pressure 160/111 O2 Sat by Pulse 100 Oximetry Medical Decision Making - Medical Decision Making vitals are stable. Patient is hypertensive. Repeat blood pressure 156/106. Patient is very overweight which is likely contributed to his hypertension. He does not follow up with the primary care physician to have blood pressure ever checked. does not know if he has a baseline of hypertension. Patient has no symptoms at this time such as chest pain, shortness of breath, headache, back pain. Patient is given primary care referral to follow up for hypertension. Patient does not have any nasal bleeding at this time. He was given a nasal clamp and Afrin in case this restarts. He will be referred to ENT. He will return for any worsening symptoms. Disposition Clinical Impression: Epistaxis Disposition: HOME SELF-CARE Condition: Good Instructions (If sedation given, give patient instructions): Nosebleed (ED) Additional Instructions: If bleeding starts spray Afrin in pain for 20 minutes. If it continues repeat this process for more time. If you still cannot get it to stop return to the emergency room. Otherwise follow-up with ENT for this. Follow up with primary care for your high blood pressure. Is patient prescribed a controlled substance at d/c from ED?: No Referrals: Jasvir Matute MD [STAFF PHYSICIAN] - 1-2 days Magi Castillo MD [Medical Doctor] - 1-2 days Time of Disposition: 17:32
== END 2021-03-27 17:44 | disposition home or self-care (01) ==
LOC: EC 17:00
DX: R04.0 Epistaxis (principal)
CPT/HCPCS: 99282

== ENCOUNTER 2022-01-07 13:10 | Observation (INO) | payer BC ==
[2022-01-07] MEDS ORDERED: OXYMETAZOLINE 0.05% NASL SPRAY 1 SPRAY BOTTLE NASAL STA (13:28)
[2022-01-07] MEDS ORDERED: LORazepam 2 MG/ML INJ IV STA (13:30)
--- NOTE | 2022-01-07 14:11 | ED ---
General Adult HPI - General Chief complaint: ENT Stated complaint: nose bleed Time Seen by Provider: 01/07/22 13:23 Source: patient, family, RN notes reviewed, old records reviewed Mode of arrival: wheelchair Limitations: no limitations - History of Present Illness Initial comments: 31-year-old male with nosebleed that began just prior to arrival. He's had history of nosebleed in the past. He denies any anticoagulation or antiplatelet agents. He states he bent over and developed sudden bleeding from the left nostril. This was significant bleeding and he presents to the emergency department for evaluation. - Related Data Home Medications Medication Instructions Recorded Confirmed No Known Home Medications 01/07/22 01/07/22 Allergies Allergy/AdvReac Type Severity Reaction Status Date / Time cephalexin [From Keflex] Allergy Rash/Hives Verified 01/07/22 15:41 Review of Systems ROS Statement: Those systems with pertinent positive or pertinent negative responses have been documented in the HPI. ROS Other: All systems not noted in ROS Statement are negative. Past Medical History Past Medical History: No Reported History Additional Past Medical History / Comment(s): sepsis from ear infection 2017 History of Any Multi-Drug Resistant Organisms: None Reported Past Surgical History: Adenoidectomy, Tonsillectomy Past Anesthesia/Blood Transfusion Reactions: No Reported Reaction Past Psychological History: No Psychological Hx Reported Smoking Status: Never smoker Past Alcohol Use History: None Reported Past Drug Use History: None Reported - Past Family History Mother Family Medical History: Congestive Heart Failure (CHF), Hypertension Father Family Medical History: Congestive Heart Failure (CHF), COPD, CVA/TIA General Exam Limitations: no limitations General appearance: alert, in distress Head exam: Present: atraumatic, normocephalic Eye exam: Present: PERRL, other (Blood pooling in both eyes) ENT exam: Present: other (Significant hemorrhage from bilateral nostrils predominant from the left copious amounts of blood both in the anterior naris and posterior oropharynx.) Respiratory exam: Present: normal lung sounds bilaterally. Absent: respiratory distress, wheezes Cardiovascular Exam: Present: normal rhythm, tachycardia GI/Abdominal exam: Present: soft. Absent: distended, tenderness, guarding, rigid Extremities exam: Present: normal inspection, normal capillary refill. Absent: calf tenderness Neurological exam: Present: alert, oriented X3, CN II-XII intact. Absent: motor sensory deficit Psychiatric exam: Present: anxious Skin exam: Present: warm, dry, intact. Absent: cyanosis, diaphoretic Course Vital Signs 01/07/22 01/07/22 01/07/22 13:10 14:42 14:45 Temperature 97.1 F L Pulse Rate 131 H 96 90 Respiratory 24 10 L 12 Rate Blood Pressure 195/133 82/51 88/44 O2 Sat by Pulse 97 95 95 Oximetry 01/07/22 01/07/22 01/07/22 14:50 15:04 15:21 Temperature Pulse Rate 93 88 96 Respiratory 10 L 16 16 Rate Blood Pressure 101/38 112/47 106/52 O2 Sat by Pulse 95 94 L 99 Oximetry 01/07/22 01/07/22 01/07/22 17:07 18:13 19:20 Temperature Pulse Rate 98 91 102 H Respiratory 16 22 20 Rate Blood Pressure 136/88 134/75 144/84 O2 Sat by Pulse 100 92 L 95 Oximetry Procedures - Procedures Initial comment: Verbal consent for bilateral nasal packing performed. Afrin is administered in the bilateral nostrils. A Merocel packing is first placed into the left nostril with water based lubricant. There is significant bleeding from the right nostr il and therefore this nostrils also packed. She tolerated procedure well. Medical Decision Making - Medical Decision Making 31-year-old male presenting with significant hemorrhage from the last nostril. I was unable to visualize an active bleeding but this was a copious amount of nasal bleeding. Patient was in distress. He was hypertensive and tachycardic. IV was established. He was given Ativan and labs were obtained. The patient receives a nasal packing initially of the left knee air with a Merocel. This had a minimal reduction and bleeding. I laced the second packing in the right nostril. The patient did have a vagal response to this and became hypotensive. Subsequently the bleeding did stop and the patient became normotensive. He is observed in the emergency department for approximately 5 hours I discussed case with Dr. Santos covering for ENT with does recommend no antiplatelet agents, continued Afrin, and antibiotics. Patient has Keflex ALLERGY and is started on Augmentin. Additionally we decided together that the patient will be started on low dose antihypertensive medication, Norvasc is prescribed. I had planned for discharge however the patient had some significant snoring respirations and there is concern for apneic episodes in the setting of a nasal packing. I discussed case with Penelope HARRINGTON who will admit and Dr. Santos will be placed on consult. - Lab Data Result diagrams: 01/07/22 14:42 01/07/22 14:42 Lab Results 01/07/22 01/07/22 01/07/22 Range/Units 14:42 14:42 14:42 WBC 8.1 (3.8-10.6) k/uL RBC 5.15 (4.30-5.90) m/uL Hgb 15.4 (13.0-17.5) gm/dL Hct 45.8 (39.0-53.0) % MCV 88.9 (80.0-100.0) fL MCH 29.8 (25.0-35.0) pg MCHC 33.5 (31.0-37.0) g/dL RDW 15.1 (11.5-15.5) % Plt Count 327 (150-450) k/uL MPV 7.1 Neutrophils % 72 % Lymphocytes % 19 % Monocytes % 4 % Eosinophils % 2 % Basophils % 0 % Neutrophils # 5.9 (1.3-7.7) k/uL Lymphocytes # 1.6 (1.0-4.8) k/uL Monocytes # 0.4 (0-1.0) k/uL Eosinophils # 0.2 (0-0.7) k/uL Basophils # 0.0 (0-0.2) k/uL PT 10.5 (9.0-12.0) sec INR 1.0 (<1.2) APTT 23.6 (22.0-30.0) sec Sodium 137 (137-145) mmol/L Potassium 3.6 (3.5-5.1) mmol/L Chloride 105 (98-107) mmol/L Carbon Dioxide 24 (22-30) mmol/L Anion Gap 8 mmol/L BUN 17 (9-20) mg/dL Creatinine 0.90 (0.66-1.25) mg/dL Est GFR (CKD-EPI)AfAm >90 (>60 ml/min/1.73 sqM) Est GFR (CKD-EPI)NonAf >90 (>60 ml/min/1.73 sqM) Glucose 143 H (74-99) mg/dL Calcium 8.7 (8.4-10.2) mg/dL Total Bilirubin 1.4 H (0.2-1.3) mg/dL AST 29 (17-59) U/L ALT 35 (4-49) U/L Alkaline Phosphatase 82 (38-126) U/L Total Protein 7.2 (6.3-8.2) g/dL Albumin 4.2 (3.5-5.0) g/dL Disposition Clinical Impression: Epistaxis, Hypertension Disposition: ADMITTED IP TO THIS HOSP Condition: Stable Is patient prescribed a controlled substance at d/c from ED?: No Referrals: None,Stated [Primary Care Provider] - 1-2 days Decision to Admit Reason: Admit from EC Decision Date: 01/07/22 Decision Time: 19:23
[2022-01-07 14:48] LABS: Basophils % (A) 0 %; Eosinophils # (A) 0.2 k/uL (0-0.7); Eosinophils % (A) 2 %; HCT 45.8 % (39.0-53.0); HGB 15.4 gm/dL (13.0-17.5); Lymphocytes # (A) 1.6 k/uL (1.0-4.8); Lymphocytes % (A) 19 %; MCH 29.8 pg (25.0-35.0); MCHC 33.5 g/dL (31.0-37.0); MCV 88.9 fL (80.0-100.0); Mean Platelet Volume 7.1; Monocytes # (A) 0.4 k/uL (0-1.0); Monocytes % (A) 4 %; Neutrophils # (A) 5.9 k/uL (1.3-7.7); Neutrophils % (A) 72 %; Platelet Count 327 k/uL (150-450); RBC 5.15 m/uL (4.30-5.90); RDW 15.1 % (11.5-15.5); WBC 8.1 k/uL (3.8-10.6)
[2022-01-07 14:57] LABS: ALT 35 U/L (4-49); AST 29 U/L (17-59); African American GFR (CKD) >90 (>60 ml/min/1.73 sqM); Albumin 4.2 g/dL (3.5-5.0); Alkaline Phosphatase 82 U/L (38-126); Anion Gap 8 mmol/L; Blood Urea Nitrogen 17 mg/dL (9-20); Calcium 8.7 mg/dL (8.4-10.2); Carbon Dioxide 24 mmol/L (22-30); Chloride 105 mmol/L (98-107); Glucose 143 mg/dL (74-99); Non-African American GFR(CKD) >90 (>60 ml/min/1.73 sqM); Potassium 3.6 mmol/L (3.5-5.1); Sodium 137 mmol/L (137-145); Total Bilirubin 1.4 mg/dL (0.2-1.3); Total Protein 7.2 g/dL (6.3-8.2)
[2022-01-07 15:02] LABS: Partial Thromboplastin Time 23.6 sec (22.0-30.0); Prothrombin Time 10.5 sec (9.0-12.0)
[2022-01-07] MEDS ORDERED: AMOXIC-POT CLAV 875-125MG 1 EACH TAB PO STA (18:14)
[2022-01-07] MEDS ORDERED: NALOXONE 0.4 MG/ML 1 ML VIAL IV PRN (19:24)
[2022-01-07] MEDS ORDERED: MORPHINE SULFATE 2 MG/ML SYRINGE IVP STA (20:12)
[2022-01-07] MEDS: OXYMETAZOLINE 0.05% NASL SPRAY 1 SPRAY BOTTLE NASAL SCH (22:44)
[2022-01-08] MEDS ORDERED: ALPRAZolam 0.5 MG TAB PO PRN (01:57)
[2022-01-08] MEDS ORDERED: LORazepam 2 MG/ML INJ IV PRN (01:57)
[2022-01-08] MEDS: amLODIPine 5 MG TAB PO SCH (08:36)
[2022-01-08] MEDS: ACETAMINOPHEN TAB 325 MG TAB PO PRN ×2 (08:45→14:59)
[2022-01-08] MEDS: OXYMETAZOLINE 0.05% NASL SPRAY 1 SPRAY BOTTLE NASAL SCH ×3 (14:07→22:48)
--- NOTE | 2022-01-08 14:30 | P.HPIM ---
History of Present Illness 31-year-old male he is admitted for epistaxis. Patient has nasal packing at this time. Patient had history of epistaxis in the past patient is was later not on any anti-beta therapy or anticoagulation. ENT was consulted. Patient is morbidly obese does have history of sleep apnea but doesn't use any CPAP machine at home. REVIEW OF SYSTEMS: CONSTITUTIONAL: No fever, no malaise, no fatigue. HEENT: No recent visual problems or hearing problems. Denied any sore throat. CARDIOVASCULAR: No chest pain, orthopnea, PND, no palpitations, no syncope. PULMONARY: No shortness of breath, no cough, no hemoptysis. GASTROINTESTINAL: No diarrhea, no nausea, no vomiting, no abdominal pain. NEUROLOGICAL: No headaches, no weakness, no numbness. HEMATOLOGICAL: Denies any bleeding or petechiae. GENITOURINARY: Denies any burning micturition, frequency, or urgency. MUSCULOSKELETAL/RHEUMATOLOGICAL: Denies any joint pain, swelling, or any muscle pain. ENDOCRINE: Denies any polyuria or polydipsia. The rest of the 14-point review of systems is negative. PHYSICAL EXAMINATION: GENERAL: The patient is alert and oriented x3, not in any acute distress. Morbidly obese HEENT: Pupils are round and equally reacting to light. EOMI. No scleral icterus. No conjunctival pallor. Normocephalic, atraumatic. No pharyngeal erythema. No thyromegaly. Patient's both nostrils are packed CARDIOVASCULAR: S1 and S2 present. No murmurs, rubs, or gallops. PULMONARY: Chest is clear to auscultation, no wheezing or crackles. ABDOMEN: Soft, nontender, nondistended, normoactive bowel sounds. No palpable organomegaly. MUSCULOSKELETAL: No joint swelling or deformity. EXTREMITIES: No cyanosis, clubbing, or pedal edema. NEUROLOGICAL: Gross neurological examination did not reveal any focal deficits. SKIN: No rashes. Assessment and plan -Epistaxis etiology not clear: Patient will be evaluated with ENT. Patient will be discharged of the treatment antibiotics patient was discharged on antibiotics. Patient related to follow up with ENT as an outpatient -morbid obesity with sleep apnea patient doesn't have a PCP patient will be r eferred to primary care physician in the town and the extensive counseling regarding lifestyle modifications and weight loss was provided. -Possible essential hypertension this is secondary to morbid obesity my suspicion is low for secondary hypertension but can be evaluated for that as an outpatient patient was started on 5 mg of Norvasc DVT prophylaxis: Early ambulation Past Medical History Past Medical History: No Reported History Additional Past Medical History / Comment(s): sepsis from ear infection 2017, nose bleeds x2, cellulitis bilateral lower legs, tennis elbow 2019. History of Any Multi-Drug Resistant Organisms: None Reported Past Surgical History: Adenoidectomy, Tonsillectomy Past Anesthesia/Blood Transfusion Reactions: No Reported Reaction Past Psychological History: No Psychological Hx Reported Smoking Status: Never smoker Past Alcohol Use History: None Reported Past Drug Use History: None Reported - Past Family History Mother Family Medical History: Congestive Heart Failure (CHF), Hypertension Father Family Medical History: Congestive Heart Failure (CHF), COPD, CVA/TIA Medications and Allergies Home Medications Medication Instructions Recorded Confirmed Type amLODIPine [Norvasc] 5 mg PO DAILY #30 tab 01/08/22 Rx Allergies Allergy/AdvReac Type Severity Reaction Status Date / Time cephalexin [From Keflex] Allergy Rash/Hives Verified 01/07/22 15:41 Physical Exam Vitals: Vital Signs Temp Pulse Pulse Resp BP BP BP 01/08/22 08:36 01/08/22 07:00 97.4 F L 94 17 148/93 01/08/22 02:09 99.4 F 89 19 164/88 01/08/22 02:00 20 01/07/22 23:57 98.4 F 85 20 01/07/22 20:53 92 20 148/90 01/07/22 19:57 01/07/22 19:20 102 H 20 144/84 01/07/22 18:13 91 22 134/75 01/07/22 17:07 98 16 136/88 01/07/22 15:21 96 16 106/52 01/07/22 15:04 88 16 112/47 01/07/22 14:50 93 10 L 101/38 01/07/22 14:45 90 12 88/44 01/07/22 14:42 96 10 L 82/51 Pulse Ox 01/08/22 08:36 100 01/08/22 07:00 98 01/08/22 02:09 97 01/08/22 02:00 01/07/22 23:57 97 01/07/22 20:53 99 01/07/22 19:57 98 01/07/22 19:20 95 01/07/22 18:13 92 L 01/07/22 17:07 100 01/07/22 15:21 99 01/07/22 15:04 94 L 01/07/22 14:50 95 01/07/22 14:45 95 01/07/22 14:42 95 Intake and Output 01/07/22 01/08/22 01/08/22 22:59 06:59 14:59 Other: # Voids 1 Weight 181.437 kg Results CBC & Chem 7: 01/07/22 14:42 01/07/22 14:42 Labs: Abnormal Lab Results - Last 24 Hours (Table) 01/07/22 Range/Units 14:42 Glucose 143 H (74-99) mg/dL Total Bilirubin 1.4 H (0.2-1.3) mg/dL Thrombosis Risk Factor Assmnt - Choose All That Apply Any of the Below Risk Factors Present?: Yes Each Factor Represents 1 point: Obesity (BMI >25) Other Risk Factors: No Thrombosis Risk Factor Assessment Total Risk Factor Score: 1 Thrombosis Risk Factor Assessment Level: Low Risk
--- NOTE | 2022-01-08 14:30 | P.DS ---
Providers Date of admission: 01/07/22 19:24 Attending physician: Toni Connor Consults: 01/07/22 19:24 Consult Physician Routine Consulting Provider: John Santos Consult Reason/Comments: Nosebleed Do you want consulting provider notified?: Already Contacted Primary care physician: Stated None Hospital Course: Please would a history of present illness for further details Patient Condition at Discharge: Stable Plan - Discharge Summary Discharge Rx Participant: No New Discharge Prescriptions: New amLODIPine [Norvasc] 5 mg PO DAILY #30 tab Discharge Medication List amLODIPine [Norvasc] 5 mg PO DAILY #30 tab 01/08/22 [Rx] Follow up Appointment(s)/Referral(s): Eulogio Rice MD [STAFF PHYSICIAN] - 1 Week Discharge Disposition: HOME SELF-CARE
--- NOTE | 2022-01-08 22:41 | CONS ---
CONSULTATION DATE OF CONSULTATION: 01/08/2022 Reason for consultation: epistaxis HISTORY OF PRESENT ILLNESS: This patient is a 31-year-old obese male who was recently seen in [facility] Emergency Room for severe left-sided epistaxis. The patient states that on the morning of his visit to the emergency room, he was bending over to assist of one of his pets at home and noticed that his nose started bleeding. When he stood up straight, the bleeding was quite severe and he was not able to stop it. He states that the air is quite dry in his house and that he has had nosebleeds before, but he has always been able to stop them by applying pressure. He does not take any aspirin or any medications at all at home. At the time that he was seen in the emergency room, attempts were made to stop the bleeding, but these were not successful. Therefore, bilateral nasal packing was inserted into the patient's nose. The bleeding was mainly from the left side, but apparently it was going around to the opposite side. I was contacted by the emergency room and advised the emergency room physician that because both sides of the nose were packed that we could not send the patient home. In these situations, the patient needs to be admitted and placed on supplemental oxygen. I requested that the patient be put on supplemental oxygen via a oxygen tent and not a face mask. The patient was admitted to the floor and since that time has had only minor bleeding, mainly from the left side. While in the emergency room, it was noted that he had a severe hypertensive episode in which his systolic blood pressure was well over 200. The patient was given medication to reduce his blood pressure as well as an anti-anxiety medication. Although he does not have a history of hypertension, he also does not go to a family doctor. He was admitted and placed on the appropriate medications including an antihypertensive medication. Since that time, his blood pressure has remained normal. I spoke with the nurses at approximately 1:00 am after the patient finally was able to be admitted from the emergency room, and advised them that if they notice any bleeding from the patient's left side that is most likely due to the fact that his blood pressure is elevated. In these patients, whenever the blood pressure becomes elevated, they will bleed. Therefore, controlling the patient's blood pressure will help reduce the number of bleeding episodes. PAST MEDICAL HISTORY: Past medical history reveals patient has: ALLERGY: TO KEFLEX. MEDICATIONS: He is not on any home medications. REVIEW OF SYSTEMS: Is completely noncontributory. PHYSICAL EXAMINATION: This patient is an obese 31-year-old male who is alert, cooperative and is in no acute distress at this time. He is not actively bleeding. HEENT examination: Patient is normocephalic. Tympanic membranes are normal. Middle ear spaces are free of any fluid or infection. Pupils equal, round, react to light and accommodation. Extraocular movements within normal limits. Intranasal examination reveals that both nasal packings are intact. I carefully removed the packing from the right side and observed that there was no active bleeding. Several puffs of Afrin nasal spray were instilled in the right naris. Examination of oropharynx reveals no evidence any bleeding down the posterior pharyngeal wall. The nasal tampon/packing that was removed on the right side was observed to have only minimal amount of blood present posteriorly. Palpation of the neck, cranial nerves 2-12, the remainder of the head and neck exam are within normal limits. CHEST/CARDIOVASCULAR: Both lung mena are clear to percussion and auscultation. The patient is in regular sinus rhythm. S1, S2 are present. No murmurs S3s or S4. ABDOMEN: The abdomen is soft. There is no evidence any masses megaly or tenderness. Examination of the lower extremities revealed that they were quite edematous with pitting edema present. The remainder of the patient's physical exam is essentially unremarkable. ASSESSMENT: Left anterior/posterior epistaxis. PLAN: I would like to keep the patient in the hospital at least overnight and then he may be discharged home tomorrow on 01/09/2022. I have written the prescription for the patient to receive Zithromax Tri-Pack to be started as soon as he is discharge and continued until it is completely gone. This is to prevent him from developing a sinus infection. In addition, the patient has been given instructions orally and his instructions have been written out on the discharge summary. Briefly, I have advised the patient that he should stay off of work until I see him in the office to remove the packing from the left side. If he has to sneeze, he has been advised to open his mouth and let the force of the sneeze come through his mouth, so as not to blow the packing out. Also, if he feels there is excess mucus in the right side of the nose, then he may sniff it back and spit it out. He should avoid [id number] pain medications containing aspirin, Motrin, ibuprofen. Instead, he may take medications with Tylenol if needed. It is okay for him to shower, shampoo his hair, and take baths as usual. I have strongly urged him to make contact with and become established with a primary care doctor so that he may be maintained on a hypertensive medication and so that any other heart issues may be addressed, such as congestive heart failure, etc. I want to take this opportunity to thank you for allowing me to assist in the care of your patient. If I could be of any further assistance, please feel free to call my office. TORIE / YOMAIRA: [phone] / DARIO
[2022-01-09] MEDS: ACETAMINOPHEN TAB 325 MG TAB PO PRN (06:11)
[2022-01-09 07:33] VITALS: RESP 20; TEMP 97.6
[2022-01-09] MEDS: OXYMETAZOLINE 0.05% NASL SPRAY 1 SPRAY BOTTLE NASAL SCH (08:25)
[2022-01-09] MEDS: amLODIPine 5 MG TAB PO SCH (08:26)
[2022-01-09] MEDS ORDERED: amLODIPine 5 MG TAB PO STA (10:02)
[2022-01-09 11:04] VITALS: BP 145/90; PULSE 83
--- NOTE | 2022-01-09 23:30 | P.DS ---
Providers Date of admission: 01/07/22 19:24 Expected date of discharge: 01/09/22 Attending physician: Toni Connor Consults: 01/07/22 19:24 Consult Physician Routine Consulting Provider: John Santos Consult Reason/Comments: Nosebleed Do you want consulting provider notified?: Already Contacted Primary care physician: Stated None Hospital Course: Final Diagnosis -Epistaxis etiology not clear, currently improved with left nare nasal packing -morbid obesity with sleep apnea -Possible essential hypertension this is secondary to morbid obesity my suspicion is low for secondary hypertension -DVT prophylaxis -Full code Discharge disposition Patient is being discharged in stable condition with guarded prognosis to home. Patient will follow up with Dr. Rice in the outpatient setting on discharge. Patient to also follow up with ENT on as scheduled. Total time taken is greater than 35 minutes. Hospital course This is a 31 year old male who was admitted for epistaxis and was being closely monitored. Patient was evaluated by ENT and nasal packing and afrin applied. Patient also found to be with hypertension and started on norvasc 5mg and will continue. Patient instructed to continue monitoring blood pressure daily and keep a diary of readings for primary follow up. Monitor closely for any worsening signs of bleeding and close follow up with ENT on . Detailed discussion was had with patient and spouse at the bedside about lifestyle modifications. Patient to establish primary care in the outpatient setting and resources provided. Currently patient denies chest pain, shortness of breath, or palpitations. Patient is afebrile. Patient tolerating diet. Patient will be discharged home today. Patient to start oral zithromax per ENT outpatient tomorrow. PHYSICAL EXAMINATION: GENERAL: The patient is alert and oriented x3, not in any acute distress. Morbidly obese HEENT: Pupils are round and equally reacting to light. EOMI. No scleral icterus. No conjunctival pallor. Normocephalic, atraumatic. No pharyngeal erythema. No thyromegaly. left nostril is packed CARDIOVASCULAR: S1 and S2 present. No murmurs, rubs, or gallops. PULMONARY: Chest is clear to auscultation, no wheezing or crackles. ABDOMEN: Soft, nontender, nondistended, normoactive bowel sounds. No palpable organomegaly. MUSCULOSKELETAL: No joint swelling or deformity. EXTREMITIES: No cyanosis, clubbing, or pedal edema. NEUROLOGICAL: Gross neurological examination did not reveal any focal deficits. SKIN: No rashes. Please refer to medication reconciliation sheet for further details. Patient Condition at Discharge: Stable Plan - Discharge Summary Discharge Rx Participant: Yes New Discharge Prescriptions: New amLODIPine [Norvasc] 5 mg PO DAILY #30 tab Oxymetazoline 0.05% Nasl [place] [Afrin 0.05% Nasal [place]] 2 spray NASAL TID ml Acetaminophen Tab [Tylenol] 650 mg PO Q6HR PRN tab PRN Reason: Mild Pain Or Fever > 100.5 Discharge Medication List amLODIPine [Norvasc] 5 mg PO DAILY #30 tab 01/08/22 [Rx] Acetaminophen Tab [Tylenol] 650 mg PO Q6HR PRN tab 01/09/22 [Rx] Oxymetazoline 0.05% Nasl [place] [Afrin 0.05% Nasal [place]] 2 spray NASAL TID ml 01/09/22 [Rx] Follow up Appointment(s)/Referral(s): Eulogio Rice MD [STAFF PHYSICIAN] - 1 Week John Santos MD [STAFF PHYSICIAN] - 3 Days (Pt has scheduled appointment) Patient Instructions/Handouts: Nosebleed (GEN) Activity/Diet/Wound Care/Special Instructions: left nose packing to stay in until 01/12/[address] Santos in office 01/12/22. Special ENT discharge instructions: 1. Please carefully read/review all ENT discharge instructions. You should avoid any straining or heavy lifting at home, you may resume a normal diet,and you should remain off work until you are seen by Dr. Santos in his office on 01/12/2022. It is okay for you to shower, shampoo your hair, take baths as usual. Please be careful when washing your face around the nasal packing that is in the left side of your nose. Also, please avoid tugging on the string on the packing in the left side of your nose. 2. If you have to sneeze you should do so with your mouth open so that the force of the sneeze comes through your mouth and does not accidentally dislodged the nasal packing. Please avoid blowing your nose. If you feel there is mucus in the right side of your nose, then you should sniff it backwords and spit it out. Do not take anything with aspirin and it and also avoid taking medications such as Motrin, ibuprofen, Aleve. If you need to a take it [id number] pain reliever then you should take Tylenol. 3. It is normal for you to have slight amount of bleeding between now and when the nasal packing is taken out of your nose. However, if any significant bleeding occurs then you will have to return to [facility] emergency room. Do not call Dr. Santos"s office if your nose is bleeding. Simply return to the emergency room. You will be given a prescription for a antibiotic tablet, Zithromax Tri-Gamaliel, which you should take, as prescribed, beginning on the day of the discharge and continued taking until it is completely gone. Activity Limited until follow-up Follow-up with ENT as scheduled Follow-up with primary care provider as scheduled Continue taking Norvasc 5 mg daily Continue to monitor blood pressure and keep diary of readings and bring to primary care office Follow strict restrictions and guidelines per ENT as above If blood pressure top number systolic is 110 or less hold blood pressure medication Avoid getting up abruptly and sit at the side of the bed or chair for 1-2 minutes prior to getting up Avoid bending over and lifting objects until followed up with ENT Discharge Disposition: HOME SELF-CARE
[2022-01-10] MEDS ORDERED: amLODIPine 10 MG TAB PO SCH (09:00)
== END 2022-01-09 12:00 | disposition home or self-care (01) ==
LOC: EC 13:10 → 6NMEDSUR 19:24
PROVIDERS: ADMIT Hospitalist; ATTEND Hospitalist
DX: R04.0 Epistaxis (principal); R03.0 Elevated blood-pressure reading, without diagnosis of hypertension; R00.0 Tachycardia, unspecified; I95.9 Hypotension, unspecified; G47.30 Sleep apnea, unspecified; R60.9 Edema, unspecified; E66.01 Morbid (severe) obesity due to excess calories; Z68.43 Body mass index [BMI] 50.0-59.9, adult; Z71.3 Dietary counseling and surveillance; Z88.1 Allergy status to other antibiotic agents; Z87.39 Personal history of other diseases of the musculoskeletal system and connective tissue; Z86.19 Personal history of other infectious and parasitic diseases; Z98.890 Other specified postprocedural states; Z82.49 Family history of ischemic heart disease and other diseases of the circulatory system; Z82.5 Family history of asthma and other chronic lower respiratory diseases; Z82.3 Family history of stroke
CPT/HCPCS: 96376; 30901; 96374; 96375; 99284; 36415; 94760; 80053; 85025; 85610; 85730; G0378 ×3; J2060 ×2; J2270

== ENCOUNTER → 2022-01-22 | Outpatient (CLI) | payer BC | END | disposition home or self-care (01) | LOC: LAB 11:54 | PROVIDERS: ATTEND Family Medicine | DX: Z53.9 Procedure and treatment not carried out, unspecified reason (principal) ==

== ENCOUNTER → 2022-01-27 | Outpatient (CLI) | payer BC | END | disposition home or self-care (01) | LOC: LABWHC1 15:09 | PROVIDERS: ATTEND Physician Assistant | DX: I10 Essential (primary) hypertension (principal) | CPT/HCPCS: 36415; 82533 ==

== ENCOUNTER 2022-07-14 12:41 | Inpatient (IN) | payer BC ==
[2022-07-14 13:02] LABS: Glucose,Whole Blood 119 mg/dL (70-110)
--- NOTE | 2022-07-14 13:30 | ED ---
Extremity Problem HPI - General Chief complaint: Extremity Problem,Nontraumatic Stated complaint: sweating, frequent urination Time Seen by Provider: 07/14/22 12:50 Source: patient Mode of arrival: wheelchair Limitations: no limitations - History of Present Illness Initial comments: This patient states that this on Sunday he started noticing that he was feeling hot and sweaty intermittently, he was developing swelling and redness of his left leg, and he was starting to have episodes of diarrhea. The patient states that symptoms did get progressively worse and this morning he was feeling bad enough that he had come to the emergency department. Patient is not aware of any injury to the left leg. States he has no history of DVT or PE. No chest pain, dyspnea, hemoptysis or other chest symptoms. MD Complaint: extremity pain, extremity swelling, other (Fever) Onset/Timin -: days(s) Location: left, lower extremity History of Same: No Quality: dull Consistency: constant Improves with: nothing Worsens with: nothing Associated Symptoms: fever, other (Diarrhea) - Related Data Previous Rx's Medication Instructions Recorded amLODIPine [Norvasc] 5 mg PO DAILY #30 tab 01/08/22 Acetaminophen Tab [Tylenol] 650 mg PO Q6HR PRN tab 01/09/22 Oxymetazoline 0.05% Nasl [place] 2 spray NASAL TID ml 01/09/22 [Afrin 0.05% Nasal [place]] Allergies Allergy/AdvReac Type Severity Reaction Status Date / Time cephalexin [From Keflex] Allergy Rash/Hives Verified 07/14/22 12:46 Review of Systems ROS Statement: Those systems with pertinent positive or pertinent negative responses have been documented in the HPI. ROS Other: All systems not noted in ROS Statement are negative. Constitutional: Reports: fever. Denies: weakness Respiratory: Denies: cough, dyspnea Cardiovascular: Denies: chest pain Gastrointestinal: Reports: diarrhea. Denies: abdominal pain, nausea, vomiting, melena, hematochezia Genitourinary: Denies: dysuria, hematuria Musculoskeletal: Denies: back pain Skin: Denies: rash Neurological: Denies: headache, weakness, numbness Past Medical History Past Medical History: No Reported History Additional Past Medical History / Comment(s): sepsis from ear infection 2017, nose bleeds x2, cellulitis bilateral lower legs, tennis elbow 2019. History of Any Multi-Drug Resistant Organisms: None Reported Past Surgical History: Adenoidectomy, Tonsillectomy Past Anesthesia/Blood Transfusion Reactions: No Reported Reaction Past Psychological History: No Psychological Hx Reported Smoking Status: Never smoker Past Alcohol Use History: None Reported Past Drug Use History: None Reported - Past Family History Mother Family Medical History: Congestive Heart Failure (CHF), Hypertension Father Family Medical History: Congestive Heart Failure (CHF), COPD, CVA/TIA General Exam Limitations: no limitations General appearance: alert, in no apparent distress Head exam: Present: atraumatic, normocephalic Eye exam: Present: normal appearance. Absent: scleral icterus, conjunctival injection Neck exam: Present: normal inspection Respiratory exam: Present: normal lung sounds bilaterally. Absent: respiratory distress, wheezes, rales, rhonchi, stridor Cardiovascular Exam: Present: normal rhythm, tachycardia (Rate approximately 104 at my exam), normal heart sounds. Absent: systolic murmur, diastolic murmur, rubs, gallop GI/Abdominal exam: Present: soft. Absent: distended, tenderness, guarding, rebound, rigid, mass Extremities exam: Present: normal inspection, normal capillary refill, pedal edema (Left leg with erythema, warmth, edema. No palpable cord. No Homans sign.). Absent: calf tenderness Neurological exam: Present: alert Skin exam: Present: warm, dry, intact, erythema (Left lower extremity consistent with cellulitis). Absent: rash Course Vital Signs 07/14/22 12:43 Temperature 98.3 F Pulse Rate 111 H Respiratory 26 H Rate Blood Pressure 112/58 O2 Sat by Pulse 96 Oximetry Medical Decision Making - Lab Data Result diagrams: 07/14/22 13:45 07/14/22 13:45 Lab Results 07/14/22 07/14/22 07/14/22 Range/Units 13:01 13:45 13:45 WBC 17.2 H (3.8-10.6) k/uL RBC 4.52 (4.30-5.90) m/uL Hgb 12.6 L (13.0-17.5) gm/dL Hct 38.8 L (39.0-53.0) % MCV 85.8 (80.0-100.0) fL MCH 27.9 (25.0-35.0) pg MCHC 32.5 (31.0-37.0) g/dL RDW 15.0 (11.5-15.5) % Plt Count 298 (150-450) k/uL MPV 7.7 Neutrophils % 89 % Lymphocytes % 7 % Monocytes % 3 % Eosinophils % 0 % Basophils % 0 % Neutrophils # 15.3 H (1.3-7.7) k/uL Lymphocytes # 1.1 (1.0-4.8) k/uL Monocytes # 0.5 (0-1.0) k/uL Eosinophils # 0.1 (0-0.7) k/uL Basophils # 0.1 (0-0.2) k/uL D-Dimer 1.04 H (<0.60) mg/L FEU Sodium (137-145) mmol/L Potassium (3.5-5.1) mmol/L Chloride (98-107) mmol/L Carbon Dioxide (22-30) mmol/L Anion Gap mmol/L BUN (9-20) mg/dL Creatinine (0.66-1.25) mg/dL Est GFR (CKD-EPI)AfAm (>60 ml/min/1.73 sqM) Est GFR (CKD-EPI)NonAf (>60 ml/min/1.73 sqM) Glucose (74-99) mg/dL POC Glucose (mg/dL) 119 H (70-110) mg/dL POC Glu Steel Melter ID Terival, María Elena Plasma Lactic Acid Alirio (0.7-2.0) mmol/L Calcium (8.4-10.2) mg/dL Total Bilirubin (0.2-1.3) mg/dL AST (17-59) U/L ALT (4-49) U/L Alkaline Phosphatase (38-126) U/L Troponin I (0.000-0.034) ng/mL Total Protein (6.3-8.2) g/dL Albumin (3.5-5.0) g/dL Urine Color Urine Appearance (Clear) Urine pH (5.0-8.0) Ur Specific [place] (1.001-1.035) Urine Protein (Negative) Urine Glucose (UA) (Negative) Urine Ketones (Negative) Urine Blood (Negative) Urine Nitrite (Negative) Urine Bilirubin (Negative) Urine Urobilinogen (<2.0) mg/dL Ur Leukocyte Esterase (Negative) Urine RBC (0-5) /hpf Urine WBC (0-5) /hpf Ur Squamous Epith Cells (0-4) /hpf Urine Bacteria (None) /hpf Urine Mucus (None) /hpf Coronavirus (PCR) (Not Detectd) 07/14/22 07/14/22 07/14/22 Range/Units 13:45 13:45 13:45 WBC (3.8-10.6) k/uL RBC (4.30-5.90) m/uL Hgb (13.0-17.5) gm/dL Hct (39.0-53.0) % MCV (80.0-100.0) fL MCH (25.0-35.0) pg MCHC (31.0-37.0) g/dL RDW (11.5-15.5) % Plt Count (150-450) k/uL MPV Neutrophils % % Lymphocytes % % Monocytes % % Eosinophils % % Basophils % % Neutrophils # (1.3-7.7) k/uL Lymphocytes # (1.0-4.8) k/uL Monocytes # (0-1.0) k/uL Eosinophils # (0-0.7) k/uL Basophils # (0-0.2) k/uL D-Dimer (<0.60) mg/L FEU Sodium 130 L (137-145) mmol/L Potassium 3.8 (3.5-5.1) mmol/L Chloride 98 (98-107) mmol/L Carbon Dioxide 19 L (22-30) mmol/L Anion Gap 13 mmol/L BUN 18 (9-20) mg/dL Creatinine 1.22 (0.66-1.25) mg/dL Est GFR (CKD-EPI)AfAm >90 (>60 ml/min/1.73 sqM) Est GFR (CKD-EPI)NonAf 79 (>60 ml/min/1.73 sqM) Glucose 109 H (74-99) mg/dL POC Glucose (mg/dL) (70-110) mg/dL POC Glu Steel Melter ID Plasma Lactic Acid Alirio 1.1 (0.7-2.0) mmol/L Calcium 8.7 (8.4-10.2) mg/dL Total Bilirubin 1.7 H (0.2-1.3) mg/dL AST 32 (17-59) U/L ALT 38 (4-49) U/L Alkaline Phosphatase 67 (38-126) U/L Troponin I (0.000-0.034) ng/mL Total Protein 6.6 (6.3-8.2) g/dL Albumin 3.6 (3.5-5.0) g/dL Urine Color Yellow Urine Appearance Cloudy (Clear) Urine pH 5.5 (5.0-8.0) Ur Specific [place] 1.020 (1.001-1.035) Urine Protein Trace H (Negative) Urine Glucose (UA) Negative (Negative) Urine Ketones Negative (Negative) Urine Blood Negative (Negative) Urine Nitrite Negative (Negative) Urine Bilirubin Negative (Negative) Urine Urobilinogen <2.0 (<2.0) mg/dL Ur Leukocyte Esterase Negative (Negative) Urine RBC 1 (0-5) /hpf Urine WBC 3 (0-5) /hpf Ur Squamous Epith Cells 1 (0-4) /hpf Urine Bacteria Rare H (None) /hpf Urine Mucus Rare H (None) /hpf Coronavirus (PCR) (Not Detectd) 07/14/22 07/14/22 Range/Units 13:45 13:45 WBC (3.8-10.6) k/uL RBC (4.30-5.90) m/uL Hgb (13.0-17.5) gm/dL Hct (39.0-53.0) % MCV (80.0-100.0) fL MCH (25.0-35.0) pg MCHC (31.0-37.0) g/dL RDW (11.5-15.5) % Plt Count (150-450) k/uL MPV Neutrophils % % Lymphocytes % % Monocytes % % Eosinophils % % Basophils % % Neutrophils # (1.3-7.7) k/uL Lymphocytes # (1.0-4.8) k/uL Monocytes # (0-1.0) k/uL Eosinophils # (0-0.7) k/uL Basophils # (0-0.2) k/uL D-Dimer (<0.60) mg/L FEU Sodium (137-145) mmol/L Potassium (3.5-5.1) mmol/L Chloride (98-107) mmol/L Carbon Dioxide (22-30) mmol/L Anion Gap mmol/L BUN (9-20) mg/dL Creatinine (0.66-1.25) mg/dL Est GFR (CKD-EPI)AfAm (>60 ml/min/1.73 sqM) Est GFR (CKD-EPI)NonAf (>60 ml/min/1.73 sqM) Glucose (74-99) mg/dL POC Glucose (mg/dL) (70-110) mg/dL POC Glu Steel Melter ID Plasma Lactic Acid Alirio (0.7-2.0) mmol/L Calcium (8.4-10.2) mg/dL Total Bilirubin (0.2-1.3) mg/dL AST (17-59) U/L ALT (4-49) U/L Alkaline Phosphatase (38-126) U/L Troponin I 0.013 (0.000-0.034) ng/mL Total Protein (6.3-8.2) g/dL Albumin (3.5-5.0) g/dL Urine Color Urine Appearance (Clear) Urine pH (5.0-8.0) Ur Specific [place] (1.001-1.035) Urine Protein (Negative) Urine Glucose (UA) (Negative) Urine Ketones (Negative) Urine Blood (Negative) Urine Nitrite (Negative) Urine Bilirubin (Negative) Urine Urobilinogen (<2.0) mg/dL Ur Leukocyte Esterase (Negative) Urine RBC (0-5) /hpf Urine WBC (0-5) /hpf Ur Squamous Epith Cells (0-4) /hpf Urine Bacteria (None) /hpf Urine Mucus (None) /hpf Coronavirus (PCR) Not Detected (Not Detectd) - EKG Data EKG shows normal: sinus rhythm, axis (Normal), intervals (Normal), QRS complexes (Normal), ST-T waves (Normal) Rate: tachycardia (Rate 105 bpm) Disposition Clinical Impression: Cellulitis of left leg Disposition: ADMITTED IP TO THIS HOSP Condition: Fair Is patient prescribed a controlled substance at d/c from ED?: No Referrals: Shelley Pineda DO [Primary Care Provider] - 1-2 days Time of Disposition: 15:50
[2022-07-14 14:05] LABS: Appearance,Urine Cloudy (Clear); Bacteria,Urine Rare /hpf; Bilirubin,Urine Negative (Negative); Blood,Urine Negative (Negative); Color,Urine Yellow; Glucose,Urine (UA) Negative (Negative); Ketones,Urine Negative (Negative); Leukocyte Esterase,Urine Negative (Negative); Mucus,Urine Rare /hpf; Nitrite,Urine Negative (Negative); PH, Urine 5.5 (5.0-8.0); Protein,Urine Trace (Negative); RBC,Urine 1 /hpf (0-5); Squamous Epithelial Cell,Urine 1 /hpf (0-4); Urobilinogen,Urine <2.0 mg/dL (<2.0); WBC,Urine 3 /hpf (0-5)
[2022-07-14 14:07] LABS: Basophils # (A) 0.1 k/uL (0-0.2); Basophils % (A) 0 %; Eosinophils # (A) 0.1 k/uL (0-0.7); Eosinophils % (A) 0 %; HCT 38.8 % (39.0-53.0); HGB 12.6 gm/dL (13.0-17.5); Lymphocytes # (A) 1.1 k/uL (1.0-4.8); Lymphocytes % (A) 7 %; MCH 27.9 pg (25.0-35.0); MCHC 32.5 g/dL (31.0-37.0); MCV 85.8 fL (80.0-100.0); Mean Platelet Volume 7.7; Monocytes # (A) 0.5 k/uL (0-1.0); Monocytes % (A) 3 %; Neutrophils # (A) 15.3 k/uL (1.3-7.7); Neutrophils % (A) 89 %; Platelet Count 298 k/uL (150-450); RBC 4.52 m/uL (4.30-5.90); WBC 17.2 k/uL (3.8-10.6)
[2022-07-14 14:18] LABS: ALT 38 U/L (4-49); AST 32 U/L (17-59); African American GFR (CKD) >90 (>60 ml/min/1.73 sqM); Albumin 3.6 g/dL (3.5-5.0); Alkaline Phosphatase 67 U/L (38-126); Anion Gap 13 mmol/L; Blood Urea Nitrogen 18 mg/dL (9-20); Calcium 8.7 mg/dL (8.4-10.2); Carbon Dioxide 19 mmol/L (22-30); Chloride 98 mmol/L (98-107); Glucose 109 mg/dL (74-99); Non-African American GFR(CKD) 79 (>60 ml/min/1.73 sqM); Potassium 3.8 mmol/L (3.5-5.1); Sodium 130 mmol/L (137-145); Total Bilirubin 1.7 mg/dL (0.2-1.3); Total Protein 6.6 g/dL (6.3-8.2)
[2022-07-14] MEDS ORDERED: VANCOMYCIN IV PER PHARMACY 1 EACH MISC MISCELLANE PRN (14:47)
[2022-07-14] MEDS ORDERED: VANCOMYCIN 2,500 MG in SODIUM CHLORIDE 0.9% 500 ML 500 ML IVPB ONE (15:15)
--- NOTE | 2022-07-14 15:36 | US ---
EXAMINATION TYPE: US venous doppler duplex LE LT DATE OF EXAM: 07/14/2022 3:30 PM COMPARISON: US 06/02/2019 CLINICAL HISTORY: swelling, possible DVT. SIDE PERFORMED: Left TECHNIQUE: The lower extremity deep venous system is examined utilizing real time linear array sonog kelly with graded compression, doppler sonography and color-flow sonography. VESSELS IMAGED: Common Femoral Vein Deep Femoral Vein Greater Saphenous Vein * Femoral Vein Popliteal Vein Small Saphenous Vein * Proximal Calf Veins (* superficial vessels) Left Leg: Negative for DVT Incidental note is made of multiple enlarged lymph nodes in left groin, largest measures 3.6 x 2.1 cm . Grayscale, color doppler, spectral doppler imaging performed of the deep veins of the left lower extr emity. There is normal flow, compressibility, vascular waveforms. IMPRESSION: No ultrasound evidence for acute DVT in the left lower extremity. Abnormal adenopathy in the left groin is noted. Consider reactive infectious or inflammatory etiology. Correlate clinically .
[2022-07-14] MEDS ORDERED: NALOXONE 0.4 MG/ML 1 ML VIAL IV PRN (15:54)
[2022-07-14] MEDS: AMPICILLIN-SULBACTAM 3 GM in SODIUM CHLORIDE 0.9% 100 ML IVPB SCH (19:59)
[2022-07-14] MEDS: SODIUM CHLORIDE 0.9% 1,000 ML IV SCH (20:00)
[2022-07-14] MEDS: ACETAMINOPHEN TAB 325 MG TAB PO PRN (21:32)
[2022-07-15] MEDS: VANCOMYCIN 2,500 MG in SODIUM CHLORIDE 0.9% 500 ML 500 ML IVPB SCH ×2 (01:22→13:31)
[2022-07-15] MEDS: AMPICILLIN-SULBACTAM 3 GM in SODIUM CHLORIDE 0.9% 100 ML IVPB SCH ×4 (01:23→17:55)
[2022-07-15] MEDS: ACETAMINOPHEN TAB 325 MG TAB PO PRN ×2 (03:26→17:49)
[2022-07-15] MEDS: IBUPROFEN 800 MG TAB PO PRN ×2 (04:54→21:01)
[2022-07-15 06:26] LABS: African American GFR (CKD) >90 (>60 ml/min/1.73 sqM); Anion Gap 11 mmol/L; Blood Urea Nitrogen 20 mg/dL (9-20); Calcium 8.1 mg/dL (8.4-10.2); Carbon Dioxide 19 mmol/L (22-30); Chloride 100 mmol/L (98-107); Glucose 104 mg/dL (74-99); Non-African American GFR(CKD) 88 (>60 ml/min/1.73 sqM); Potassium 3.4 mmol/L (3.5-5.1); Sodium 130 mmol/L (137-145)
[2022-07-15 08:36] LABS: Basophils # (A) 0.03 X 10*3/uL (0.00-0.10); Basophils % (A) 0.2 %; Eosinophils # (A) 0 X 10*3/uL (0.04-0.35); Eosinophils % (A) 0 %; HCT 35.3 % (39.6-50.0); HGB 11.5 g/dL (13.0-17.0); Immature Grans, Automated 1.2 %; Lymphocytes # (A) 0.98 X 10*3/uL (0.90-5.00); Lymphocytes % (A) 7.2 %; MCH 27.8 pg (27.0-32.0); MCHC 32.6 g/dL (32.0-37.0); MCV 85.3 fL (80.0-97.0); Mean Platelet Volume 10.3 fL (9.5-12.2); Monocytes # (A) 0.59 X 10*3/uL (0.20-1.00); Monocytes % (A) 4.3 %; NRBC Per 100 WBC 0 /100 WBCS (0.0-0.0); Neutrophils # (A) 11.92 X 10*3/uL (1.80-7.70); Neutrophils % (A) 87.1 %; Platelet Count 260 X 10*3/uL (140-440); RBC 4.14 X 10*6/uL (4.40-5.60); RDW 15.5 % (11.5-14.5); WBC 13.68 X 10*3/uL (4.50-10.00)
[2022-07-15] MEDS ORDERED: amLODIPine 5 MG TAB PO SCH (09:00)
[2022-07-15] MEDS: HYDROcodone/APAP 5-325MG 1 EACH TAB PO PRN (11:44)
[2022-07-15] MEDS ORDERED: POTASSIUM CHLORIDE 20 MEQ in WATER FOR INJECTION 1 100ML.BAG IVPB STA (15:30)
[2022-07-15] MEDS: SODIUM CHLORIDE 0.9% 1,000 ML IV SCH (17:49)
--- NOTE | 2022-07-15 19:06 | P.HPIM ---
History of Present Illness H&P Date: 07/14/22 Chief Complaint: Pain and swelling left leg 32-year-old morbidly obese male patient, history of hypertension, presents to ED with complaint of pain and swelling left lower extremity; patient states that this on Sunday he started noticing that he was feeling hot and sweaty intermittently, he was developing swelling and redness of his left leg, and he was starting to have episodes of diarrhea. The patient states that symptoms did get progressively worse and this morning he was feeling bad enough that he had come to the emergency department. Patient is not aware of any injury to the left leg. States he has no history of DVT or PE. No chest pain, dyspnea, hemoptysis or other chest symptoms. EKG shows normal: sinus rhythm, axis (Normal), intervals (Normal), QRS complexes (Normal), ST-T waves (Normal) Rate: tachycardia (Rate 105 bpm) Blood work completed in ED reveals an elevated white blood count of 17.2, d-d evelyn elevated at 1.04, sodium 1:30, potassium 3.8, BUN/creatinine of 18/1.22 Patient is admitted to the hospital for IV antibiotics and further evaluation by ID Review of Systems REVIEW OF SYSTEMS: CONSTITUTIONAL: No fever, no malaise, no fatigue. HEENT: No recent visual problems or hearing problems. Denied any sore throat. CARDIOVASCULAR: No chest pain, orthopnea, PND, no palpitations, no syncope. PULMONARY: No shortness of breath, no cough, no hemoptysis. GASTROINTESTINAL: No diarrhea, no nausea, no vomiting, no abdominal pain. NEUROLOGICAL: No headaches, no weakness, no numbness. HEMATOLOGICAL: Denies any bleeding or petechiae. GENITOURINARY: Denies any burning micturition, frequency, or urgency. MUSCULOSKELETAL/RHEUMATOLOGICAL: Denies any joint pain, swelling, or any muscle pain. ENDOCRINE: Denies any polyuria or polydipsia. The rest of the 14-point review of systems is negative. Past Medical History Past Medical History: No Reported History Additional Past Medical History / Comment(s): sepsis from ear infection 2017, nose bleeds x2, cellulitis bilateral lower legs, tennis elbow 2019. History of Any Multi-Drug Resistant Organisms: None Reported Past Surgical History: Adenoidectomy, Tonsillectomy Past Anesthesia/Blood Transfusion Reactions: No Reported Reaction Past Psychological History: No Psychological Hx Reported Smoking Status: Never smoker Past Alcohol Use History: None Reported Past Drug Use History: None Reported - Past Family History Mother Family Medical History: Congestive Heart Failure (CHF), Hypertension Father Family Medical History: Congestive Heart Failure (CHF), COPD, CVA/TIA Medications and Allergies Home Medications Medication Instructions Recorded Confirmed Type Furosemide [Lasix] 20 mg PO DAILY 07/14/22 07/14/22 History amLODIPine BESYLATE/BENAZEPRIL 1 cap PO DAILY 07/14/22 07/14/22 History [amLODIPine BESYLATE/BENAZEPRIL 10-20 mg] Allergies Allergy/AdvReac Type Severity Reaction Status Date / Time cephalexin [From Keflex] Allergy Rash/Hives Verified 07/14/22 16:55 Physical Exam Vitals: Vital Signs Temp Pulse Resp BP Pulse Ox 07/14/22 12:43 98.3 F 111 H 26 H 112/58 96 Intake and Output 07/14/22 07/14/22 07/14/22 06:59 14:59 22:59 Other: Weight 195.045 kg General appearance: alert, in no apparent distress Head exam: Present: atraumatic, normocephalic Eye exam: Present: normal appearance. Absent: scleral icterus, conjunctival injection Neck exam: Present: normal inspection Respiratory exam: Present: normal lung sounds bilaterally. Absent: respiratory distress, wheezes, rales, rhonchi, stridor Cardiovascular Exam: Present: normal rhythm, tachycardia (Rate approximately 104 at my exam), normal heart sounds. Absent: systolic murmur, diastolic murmur, rubs, gallop GI/Abdominal exam: Present: soft. Absent: distended, tenderness, guarding, rebound, rigid, mass Extremities exam: Present: normal inspection, normal capillary refill, pedal edema (Left leg with erythema, warmth, edema. No palpable cord. No Homans sign.). Absent: calf tenderness Neurological exam: Present: alert Skin exam: Present: warm, dry, intact, erythema (Left lower extremity consistent with cellulitis). Absent: rash Results CBC & Chem 7: 07/15/22 05:43 07/15/22 05:43 Labs: Abnormal Lab Results - Last 24 Hours (Table) 07/14/22 07/14/22 07/14/22 Range/Units 13:01 13:45 13:45 WBC 17.2 H (3.8-10.6) k/uL Hgb 12.6 L (13.0-17.5) gm/dL Hct 38.8 L (39.0-53.0) % Neutrophils # 15.3 H (1.3-7.7) k/uL D-Dimer 1.04 H (<0.60) mg/L FEU Sodium (137-145) mmol/L Carbon Dioxide (22-30) mmol/L Glucose (74-99) mg/dL POC Glucose (mg/dL) 119 H (70-110) mg/dL Total Bilirubin (0.2-1.3) mg/dL Urine Protein (Negative) Urine Bacteria (None) /hpf Urine Mucus (None) /hpf 07/14/22 07/14/22 Range/Units 13:45 13:45 WBC (3.8-10.6) k/uL Hgb (13.0-17.5) gm/dL Hct (39.0-53.0) % Neutrophils # (1.3-7.7) k/uL D-Dimer (<0.60) mg/L FEU Sodium 130 L (137-145) mmol/L Carbon Dioxide 19 L (22-30) mmol/L Glucose 109 H (74-99) mg/dL POC Glucose (mg/dL) (70-110) mg/dL Total Bilirubin 1.7 H (0.2-1.3) mg/dL Urine Protein Trace H (Negative) Urine Bacteria Rare H (None) /hpf Urine Mucus Rare H (None) /hpf Assessment and Plan Assessment: 1. Severe extensive cellulitis of left lower extremity extending from left foot up to mid thigh - Patient has been placed on IV Unasyn and vancomycin; we will monitor CBC, CMP and pro-calcitonin; blood cultures are obtained and pending - We will consult ID for further evaluation and recommendations 2. Hypertension; stable on home dose of amlodipine and lisinopril 3. Morbid obesity; counseling done 4. Leukocytosis; related to severe cellulitis; monitor CBC to ensure trending down off WBC DVT prophylaxis; SCDs/subcu heparin CODE STATUS; full code
--- NOTE | 2022-07-15 19:07 | P.PN ---
Subjective Progress Note Date: 07/15/22 Principal diagnosis: Severe extensive cellulitis left lower extremity 32-year-old morbidly obese male patient, history of hypertension, presents to ED with complaint of pain and swelling left lower extremity; patient states that this on Sunday he started noticing that he was feeling hot and sweaty intermittently, he was developing swelling and redness of his left leg, and he was starting to have episodes of diarrhea. The patient states that symptoms did get progressively worse and this morning he was feeling bad enough that he had come to the emergency department. Patient is not aware of any injury to the left leg. States he has no history of DVT or PE. No chest pain, dyspnea, hemoptysis or other chest symptoms. EKG shows normal: sinus rhythm, axis (Normal), intervals (Normal), QRS complexes (Normal), ST-T waves (Normal) Rate: tachycardia (Rate 105 bpm) Blood work completed in ED reveals an elevated white blood count of 17.2, d- dimer elevated at 1.04, sodium 1:30, potassium 3.8, BUN/creatinine of 18/. Patient is admitted to the hospital for IV antibiotics and further evaluation by ID Objective - Vital Signs Vital signs: Vital Signs Temp 99.9 F H 07/15/22 14:13 Pulse 115 H 07/15/22 14:13 Resp 24 07/15/22 14:13 BP 96/57 07/15/22 14:13 Pulse Ox 96 07/15/22 14:13 FiO2 Intake & Output 07/14/22 07/15/22 07/15/22 18:59 06:59 18:59 Intake Total 240 Balance 240 Weight 195.045 kg Intake: Oral 240 Other: Voiding Method Toilet Toilet # Voids 3 1 - Exam General appearance: alert, in no apparent distress Head exam: Present: atraumatic, normocephalic Eye exam: Present: normal appearance. Absent: scleral icterus, conjunctival in jection Neck exam: Present: normal inspection Respiratory exam: Present: normal lung sounds bilaterally. Absent: respiratory distress, wheezes, rales, rhonchi, stridor Cardiovascular Exam: Present: normal rhythm, tachycardia (Rate approximately 104 at my exam), normal heart sounds. Absent: systolic murmur, diastolic murmur, rubs, gallop GI/Abdominal exam: Present: soft. Absent: distended, tenderness, guarding, rebound, rigid, mass Extremities exam: Present: normal inspection, normal capillary refill, pedal edema (Left leg with erythema, warmth, edema. No palpable cord. No Homans sign.). Absent: calf tenderness Neurological exam: Present: alert Skin exam: Present: warm, dry, intact, erythema (Left lower extremity consistent with cellulitis). Absent: rash - Labs CBC & Chem 7: 07/15/22 05:43 07/15/22 05:43 Labs: Abnormal Lab Results - Last 24 Hours (Table) 07/15/22 07/15/22 Range/Units 05:43 05:43 WBC 13.68 H (4.50-10.00) X 10*3/uL RBC 4.14 L (4.40-5.60) X 10*6/uL Hgb 11.5 L (13.0-17.0) g/dL Hct 35.3 L (39.6-50.0) % RDW 15.5 H (11.5-14.5) % Immature Gran # 0.16 H (0.00-0.04) X 10*3/uL Neutrophils # 11.92 H (1.80-7.70) X 10*3/uL Eosinophils # 0 L (0.04-0.35) X 10*3/uL Sodium 130 L (137-145) mmol/L Potassium 3.4 L (3.5-5.1) mmol/L Carbon Dioxide 19 L (22-30) mmol/L Glucose 104 H (74-99) mg/dL Calcium 8.1 L (8.4-10.2) mg/dL Assessment and Plan Assessment: 1. Severe extensive cellulitis of left lower extremity extending from left foot up to mid thigh - Patient has been placed on IV Unasyn and vancomycin; we will monitor CBC, CMP and pro-calcitonin; blood cultures are obtained and pending - We will consult ID for further evaluation and recommendations 2. Hypertension; stable on home dose of amlodipine and lisinopril 3. Morbid obesity; counseling done 4. Leukocytosis; related to severe cellulitis; monitor CBC to ensure trending down off WBC DVT prophylaxis; SCDs/subcu heparin CODE STATUS; full code
[2022-07-16] MEDS: AMPICILLIN-SULBACTAM 3 GM in SODIUM CHLORIDE 0.9% 100 ML IVPB SCH ×4 (00:17→17:34)
[2022-07-16] MEDS: VANCOMYCIN 2,500 MG in SODIUM CHLORIDE 0.9% 500 ML 500 ML IVPB SCH ×2 (00:17→21:58)
[2022-07-16 06:53] LABS: African American GFR (CKD) >90 (>60 ml/min/1.73 sqM); Anion Gap 12 mmol/L; Blood Urea Nitrogen 17 mg/dL (9-20); Calcium 8.1 mg/dL (8.4-10.2); Carbon Dioxide 19 mmol/L (22-30); Chloride 102 mmol/L (98-107); Glucose 109 mg/dL (74-99); Non-African American GFR(CKD) >90 (>60 ml/min/1.73 sqM); Potassium 3.8 mmol/L (3.5-5.1); Sodium 133 mmol/L (137-145)
[2022-07-16] MEDS: HYDROcodone/APAP 5-325MG 1 EACH TAB PO PRN (08:18)
[2022-07-16] MEDS: IBUPROFEN 800 MG TAB PO PRN ×2 (08:19→21:56)
[2022-07-16] MEDS: amLODIPine 10 MG TAB PO SCH (08:20)
[2022-07-16] MEDS: lisinopriL 20 MG TAB PO SCH (08:20)
[2022-07-16] MEDS: FUROSEMIDE 20 MG TAB PO SCH (08:20)
[2022-07-16] MEDS ORDERED: NON FORMULARY DRUG (Amlodipine Besylate/Benazepril [Amlodipine Besylate/Benazepril 10-20 M PO SCH (09:00)
[2022-07-16 09:08] LABS: Basophils # (A) 0.08 X 10*3/uL (0.00-0.10); Basophils % (A) 0.5 %; Eosinophils # (A) 0.01 X 10*3/uL (0.04-0.35); Eosinophils % (A) 0.1 %; HCT 38.6 % (39.6-50.0); HGB 12.6 g/dL (13.0-17.0); Immature Grans, Automated 1.2 %; Lymphocytes # (A) 1.37 X 10*3/uL (0.90-5.00); Lymphocytes % (A) 8.2 %; MCH 28.2 pg (27.0-32.0); MCHC 32.6 g/dL (32.0-37.0); MCV 86.4 fL (80.0-97.0); Monocytes # (A) 1.12 X 10*3/uL (0.20-1.00); Monocytes % (A) 6.7 %; NRBC Per 100 WBC 0 /100 WBCS (0.0-0.0); Neutrophils # (A) 13.99 X 10*3/uL (1.80-7.70); Neutrophils % (A) 83.3 %; Platelet Count 263 X 10*3/uL (140-440); RBC 4.47 X 10*6/uL (4.40-5.60); RDW 16.1 % (11.5-14.5); WBC 16.77 X 10*3/uL (4.50-10.00)
[2022-07-16] MEDS ORDERED: VANCOMYCIN 2,500 MG in SODIUM CHLORIDE 0.9% 500 ML 500 ML IVPB SCH (10:00)
[2022-07-16] MEDS: SODIUM CHLORIDE 0.9% 1,000 ML IV SCH (16:29)
[2022-07-16] MEDS ORDERED: VANCOMYCIN TROUGH DUE 1 EACH MISC MISCELLANE ONE (17:00)
--- NOTE | 2022-07-16 18:34 | P.PN ---
Subjective Progress Note Date: 07/16/22 Principal diagnosis: Severe extensive cellulitis left lower extremity 32-year-old morbidly obese male patient, history of hypertension, presents to ED with complaint of pain and swelling left lower extremity; patient states that this on Sunday he started noticing that he was feeling hot and sweaty intermittently, he was developing swelling and redness of his left leg, and he was starting to have episodes of diarrhea. The patient states that symptoms did get progressively worse and this morning he was feeling bad enough that he had come to the emergency department. Patient is not aware of any injury to the left leg. States he has no history of DVT or PE. No chest pain, dyspnea, hemoptysis or other chest symptoms. EKG shows normal: sinus rhythm, axis (Normal), intervals (Normal), QRS complexes (Normal), ST-T waves (Normal) Rate: tachycardia (Rate 105 bpm) Blood work completed in ED reveals an elevated white blood count of 17.2, d- dimer elevated at 1.04, sodium 1:30, potassium 3.8, BUN/creatinine of 18/. Patient is admitted to the hospital for IV antibiotics and further evaluation by ID 07/16/2022 Patient seen and evaluated in room at bedside; complains of pain and stiffness right shoulder; unable to lift shoulder up more than 45; denies any fall or injuries Vital signs are reviewed and remained stable; lab review shows a white blood count trended up to 16.7 from 13.6 yesterday; sodium 133, potassium 3.8, BUN/creatinine are stable Patient remains on IV antibiotics in form of Unasyn and vancomycin; recommendations from ID are pending - We will obtain an x-ray of the shoulder and start patient on Flexeril 5 mg 3 times a day when necessary; blood cultures are negative; we will continue to monitor CBC, CRP and pro-calcitonin Objective - Vital Signs Vital signs: Vital Signs Temp 99 F 07/16/22 07:00 Pulse 97 07/16/22 08:00 Resp 22 07/16/22 08:00 BP 100/61 07/16/22 07:00 Pulse Ox 96 07/16/22 07:00 FiO2 Intake & Output 07/15/22 07/16/22 07/16/22 18:59 06:59 18:59 Other: Voiding Method Toilet Toilet Toilet # Voids 1 2 # Bowel Movements 1 - Exam General appearance: alert, in no apparent distress Head exam: Present: atraumatic, normocephalic Eye exam: Present: normal appearance. Absent: scleral icterus, conjunctival injection Neck exam: Present: normal inspection Respiratory exam: Present: normal lung sounds bilaterally. Absent: respiratory distress, wheezes, rales, rhonchi, stridor Cardiovascular Exam: Present: normal rhythm, tachycardia (Rate approximately 104 at my exam), normal heart sounds. Absent: systolic murmur, diastolic murmur, rubs, gallop GI/Abdominal exam: Present: soft. Absent: distended, tenderness, guarding, rebound, rigid, mass Extremities exam: Present: normal inspection, normal capillary refill, pedal edema (Left leg with erythema, warmth, edema. No palpable cord. No Homans sign.). Absent: calf tenderness Neurological exam: Present: alert Skin exam: Present: warm, dry, intact, erythema (Left lower extremity consistent with cellulitis). Absent: rash - Labs CBC & Chem 7: 07/16/22 06:00 07/16/22 05:56 Labs: Abnormal Lab Results - Last 24 Hours (Table) 07/16/22 07/16/22 Range/Units 05:56 06:00 WBC 16.77 H (4.50-10.00) X 10*3/uL Hgb 12.6 L (13.0-17.0) g/dL Hct 38.6 L (39.6-50.0) % RDW 16.1 H (11.5-14.5) % Immature Gran # 0.20 H (0.00-0.04) X 10*3/uL Neutrophils # 13.99 H (1.80-7.70) X 10*3/uL Monocytes # 1.12 H (0.20-1.00) X 10*3/uL Eosinophils # 0.01 L (0.04-0.35) X 10*3/uL Sodium 133 L (137-145) mmol/L Carbon Dioxide 19 L (22-30) mmol/L Glucose 109 H (74-99) mg/dL Calcium 8.1 L (8.4-10.2) mg/dL Microbiology - Last 24 Hours (Table) 07/14/22 14:50 Blood Culture - Preliminary Blood No Growth after 24 hours Assessment and Plan Assessment: 1. Severe extensive cellulitis of left lower extremity extending from left foot up to mid thigh - Patient has been placed on IV Unasyn and vancomycin; we will monitor CBC, CMP and pro-calcitonin; blood cultures are obtained and pending - We will consult ID for further evaluation and recommendations 2. Hypertension; stable on home dose of amlodipine and lisinopril 3. Morbid obesity; counseling done 4. Leukocytosis; related to severe cellulitis; monitor CBC to ensure trending down off WBC DVT prophylaxis; SCDs/subcu heparin CODE STATUS; full code
--- NOTE | 2022-07-16 20:06 | XR ---
EXAMINATION TYPE: XR shoulder complete RT DATE OF EXAM: 07/16/2022 COMPARISON: NONE HISTORY: Pain TECHNIQUE: 3 views FINDINGS: There is no sign of fracture nor dislocation. Joint spaces are normal. No pathologic calcif ication. IMPRESSION: Negative right shoulder exam
[2022-07-16] MEDS: CYCLOBENZAPRINE 5 MG TAB PO PRN (21:57)
--- NOTE | 2022-07-16 22:26 | P.PN ---
Subjective Progress Note Date: 07/16/22 Principal diagnosis: Left lower extremity cellulitis Patient is a 32-year-old male morbidly obese presenting to the hospital with extensive swelling of the left lower extremity in this patient diagnosed with extensive left dorsum cellulitis the patient to have underlying cephalexin ALLERGY. On today's evaluation that is 07/16/2022, the patient denies having any fever or any chills, still complaining of significant swelling and redness of the left lower extremity with minimal improvement, the patient denies having any chest pain shortness of cough no abdominal pain no diarrhea Objective - Vital Signs Vital signs: Vital Signs Temp 98.9 F 07/16/22 15:00 Pulse 93 07/16/22 15:00 Resp 18 07/16/22 15:00 BP 105/66 07/16/22 15:00 Pulse Ox 100 07/16/22 15:00 FiO2 Intake & Output 07/15/22 07/16/22 07/16/22 18:59 06:59 18:59 Intake Total 222 Output Total 500 Balance -278 Intake: Oral 222 Output: Urine 500 Other: Voiding Method Toilet Toilet Toilet # Voids 1 2 # Bowel Movements 1 - Exam GENERAL DESCRIPTION: Middle-age male lying in bed in no distress RESPIRATORY SYSTEM: Unlabored breathing , decreased breath sounds at bases HEART: S1 S2 regular rate and rhythm , ABDOMEN: Soft , no tenderness EXTREMITIES: Diffuse swelling redness of left lower extremity - Labs CBC & Chem 7: 07/16/22 06:00 07/16/22 05:56 Labs: Abnormal Lab Results - Last 24 Hours (Table) 07/16/22 07/16/22 Range/Units 05:56 06:00 WBC 16.77 H (4.50-10.00) X 10*3/uL Hgb 12.6 L (13.0-17.0) g/dL Hct 38.6 L (39.6-50.0) % RDW 16.1 H (11.5-14.5) % Immature Gran # 0.20 H (0.00-0.04) X 10*3/uL Neutrophils # 13.99 H (1.80-7.70) X 10*3/uL Monocytes # 1.12 H (0.20-1.00) X 10*3/uL Eosinophils # 0.01 L (0.04-0.35) X 10*3/uL Sodium 133 L (137-145) mmol/L Carbon Dioxide 19 L (22-30) mmol/L Glucose 109 H (74-99) mg/dL Calcium 8.1 L (8.4-10.2) mg/dL Microbiology - Last 24 Hours (Table) 07/14/22 14:50 Blood Culture - Preliminary Blood No Growth after 48 hours Assessment and Plan (1) Cellulitis of left leg Current Visit: Yes Status: Acute Code(s): L03.116 - CELLULITIS OF LEFT LOWER LIMB SNOMED Code(s): 269934965 Plan: 1patient is in the hospital with extensive left lower extremity swelling and redness has been diagnosed with a cellulitis patient unfortunately to have cephalexin ALLERGY he will continue the patient on vancomycin however we'll switch Unasyn to clindamycin and see clinical response we will also apply Jorge wrap to the leg to keep the swelling down Time with Patient: Less than 30
[2022-07-17] MEDS: AMPICILLIN-SULBACTAM 3 GM in SODIUM CHLORIDE 0.9% 100 ML IVPB SCH ×2 (00:32→05:54)
[2022-07-17 07:07] LABS: African American GFR (CKD) >90 (>60 ml/min/1.73 sqM); Anion Gap 11 mmol/L; Blood Urea Nitrogen 17 mg/dL (9-20); Calcium 7.9 mg/dL (8.4-10.2); Carbon Dioxide 21 mmol/L (22-30); Chloride 103 mmol/L (98-107); Glucose 106 mg/dL (74-99); Non-African American GFR(CKD) >90 (>60 ml/min/1.73 sqM); Potassium 3.9 mmol/L (3.5-5.1); Sodium 135 mmol/L (137-145)
[2022-07-17] MEDS: HYDROcodone/APAP 5-325MG 1 EACH TAB PO PRN ×2 (08:01→15:20)
[2022-07-17] MEDS: VANCOMYCIN 2,500 MG in SODIUM CHLORIDE 0.9% 500 ML 500 ML IVPB SCH ×2 (08:01→20:20)
[2022-07-17] MEDS: amLODIPine 10 MG TAB PO SCH (08:02)
[2022-07-17] MEDS: lisinopriL 20 MG TAB PO SCH (08:02)
[2022-07-17] MEDS: FUROSEMIDE 20 MG TAB PO SCH (08:02)
[2022-07-17 09:14] LABS: HCT 33.1 % (39.6-50.0); HGB 10.6 g/dL (13.0-17.0); MCV 87.6 fL (80.0-97.0); Mean Platelet Volume 10.3 fL (9.5-12.2); NRBC Per 100 WBC 0 /100 WBCS (0.0-0.0); Platelet Count 294 X 10*3/uL (140-440); RBC 3.78 X 10*6/uL (4.40-5.60); RDW 16.6 % (11.5-14.5); WBC 17.82 X 10*3/uL (4.50-10.00)
--- NOTE | 2022-07-17 10:22 | P.PN ---
Subjective Progress Note Date: 07/17/22 He is feeling the same, no chest pain, fever, chills, shortness of breath although continues to report LLE tenderness and erythema. He continues on unasyn and vancomycin. Feels the swelling is down somewhat. Objective - Vital Signs Vital signs: Vital Signs Temp 98.1 F 07/17/22 07:00 Pulse 102 H 07/17/22 07:00 Resp 24 07/17/22 07:00 BP 119/74 07/17/22 07:00 Pulse Ox 98 07/17/22 07:00 FiO2 Intake & Output 07/16/22 07/17/22 07/17/22 18:59 06:59 18:59 Intake Total 222 240 Output Total 500 Balance -278 240 Intake: Oral 222 240 Output: Urine 500 Other: Voiding Method Toilet Toilet Toilet # Voids 1 - Exam Gen: morbidly obese, NAD CV: RRR, no murmur. 2+ edema BLE Lungs: Normal effort, clear throughout Skin: LLE erythema, induration distal, no excoriation or abscess - Labs CBC & Chem 7: 07/17/22 06:01 07/17/22 06:01 Labs: Abnormal Lab Results - Last 24 Hours (Table) 07/17/22 07/17/22 Range/Units 06:01 06:01 WBC 17.82 H (4.50-10.00) X 10*3/uL RBC 3.78 L (4.40-5.60) X 10*6/uL Hgb 10.6 L (13.0-17.0) g/dL Hct 33.1 L (39.6-50.0) % RDW 16.6 H (11.5-14.5) % Sodium 135 L (137-145) mmol/L Carbon Dioxide 21 L (22-30) mmol/L Glucose 106 H (74-99) mg/dL Calcium 7.9 L (8.4-10.2) mg/dL Microbiology - Last 24 Hours (Table) 07/14/22 14:50 Blood Culture - Preliminary Blood No Growth after 48 hours Assessment and Plan Plan: Continue with current medications and treatments. Care discussed with nursing staff. Continue vancomycin and unasyn. Continue lasix. ID following
[2022-07-17 10:40] LABS: Basophils # (A) 0.08 X 10*3/uL (0.00-0.10); Basophils % (A) 0.4 %; Eosinophils # (A) 0.06 X 10*3/uL (0.04-0.35); Eosinophils % (A) 0.3 %; Immature Grans, Automated 4.2 %; Lymphocytes # (A) 1.43 X 10*3/uL (0.90-5.00); Monocytes # (A) 1.61 X 10*3/uL (0.20-1.00); Neutrophils # (A) 13.89 X 10*3/uL (1.80-7.70); Neutrophils % (A) 78.1 %
[2022-07-17] MEDS: CLINDAMYCIN 900 MG in DEXTROSE 5% IN WATER 50 ML IVPB SCH ×4 (15:20→23:36)
[2022-07-17] MEDS: SODIUM CHLORIDE 0.9% 1,000 ML IV SCH (16:48)
[2022-07-17] MEDS: IBUPROFEN 800 MG TAB PO PRN (18:20)
[2022-07-18] MEDS: IBUPROFEN 800 MG TAB PO PRN (05:35)
[2022-07-18] MEDS: HYDROcodone/APAP 5-325MG 1 EACH TAB PO PRN ×2 (05:35→21:03)
[2022-07-18] MEDS: CLINDAMYCIN 900 MG in DEXTROSE 5% IN WATER 50 ML IVPB SCH ×4 (07:35→19:47)
[2022-07-18] MEDS: FUROSEMIDE 20 MG TAB PO SCH (07:36)
[2022-07-18] MEDS: amLODIPine 10 MG TAB PO SCH (07:36)
[2022-07-18] MEDS: lisinopriL 20 MG TAB PO SCH (07:36)
--- NOTE | 2022-07-18 08:51 | P.PN ---
Subjective Progress Note Date: 07/17/22 Principal diagnosis: Left lower extremity cellulitis Patient is a 32-year-old male morbidly obese presenting to the hospital with extensive swelling of the left lower extremity in this patient diagnosed with extensive left dorsum cellulitis the patient to have underlying cephalexin ALLERGY. On today's evaluation that is 07/17/2022, the patient remains to be afebrile, the patient still have significant swelling and redness of the left lower extremity however did have some improvement, the patient denies having any chest pain shortness of cough no abdominal pain no diarrhea Objective - Vital Signs Vital signs: Vital Signs Temp 99.4 F 07/17/22 13:07 Pulse 102 H 07/17/22 13:07 Resp 22 07/17/22 13:07 BP 114/57 07/17/22 13:07 Pulse Ox 98 07/17/22 13:07 FiO2 Intake & Output 07/17/22 07/17/22 07/18/22 06:59 18:59 06:59 Intake Total 600 Balance 600 Intake: Oral 600 Other: Voiding Method Toilet Toilet # Voids 1 1 # Bowel Movements 1 - Exam GENERAL DESCRIPTION: Middle-age male lying in bed in no distress RESPIRATORY SYSTEM: Unlabored breathing , decreased breath sounds at bases HEART: S1 S2 regular rate and rhythm , ABDOMEN: Soft , no tenderness EXTREMITIES: Diffuse swelling redness of left lower extremity - Labs CBC & Chem 7: 07/17/22 06:01 07/17/22 06:01 Labs: Abnormal Lab Results - Last 24 Hours (Table) 07/17/22 07/17/22 Range/Units 06:01 06:01 WBC 17.82 H (4.50-10.00) X 10*3/uL RBC 3.78 L (4.40-5.60) X 10*6/uL Hgb 10.6 L (13.0-17.0) g/dL Hct 33.1 L (39.6-50.0) % RDW 16.6 H (11.5-14.5) % Immature Gran # 0.75 H (0.00-0.04) X 10*3/uL Neutrophils # 13.89 H (1.80-7.70) X 10*3/uL Monocytes # 1.61 H (0.20-1.00) X 10*3/uL Sodium 135 L (137-145) mmol/L Carbon Dioxide 21 L (22-30) mmol/L Glucose 106 H (74-99) mg/dL Calcium 7.9 L (8.4-10.2) mg/dL Microbiology - Last 24 Hours (Table) 07/14/22 14:50 Blood Culture - Preliminary Blood No Growth after 72 hours Assessment and Plan (1) Cellulitis of left leg Current Visit: Yes Status: Acute Code(s): L03.116 - CELLULITIS OF LEFT LOWER LIMB SNOMED Code(s): 309074084 Plan: 1patient is in the hospital with extensive left lower extremity swelling and redness has been diagnosed with a cellulitis patient unfortunately to have cephalexin ALLERGY, patient to continue with aseptic selected to keep the swelling down 2-patient to continue with the vancomycin and clindamycin in view of extensive infection and monitor clinical course closely Time with Patient: Less than 30
[2022-07-18] MEDS: VANCOMYCIN 2,500 MG in SODIUM CHLORIDE 0.9% 500 ML 500 ML IVPB SCH ×2 (10:40→21:04)
[2022-07-18] MEDS ORDERED: FUROSEMIDE 10 MG/ML 4 ML VIAL IV STA (10:46)
[2022-07-18] MEDS: SODIUM CHLORIDE 0.9% 1,000 ML IV SCH (19:47)
[2022-07-19] MEDS: CYCLOBENZAPRINE 5 MG TAB PO PRN (00:49)
[2022-07-19] MEDS: ACETAMINOPHEN TAB 325 MG TAB PO PRN (00:49)
[2022-07-19] MEDS: CLINDAMYCIN 900 MG in DEXTROSE 5% IN WATER 50 ML IVPB SCH ×6 (00:50→16:14)
[2022-07-19] MEDS: HYDROcodone/APAP 5-325MG 1 EACH TAB PO PRN ×2 (05:09→19:44)
[2022-07-19] MEDS ORDERED: VANCOMYCIN TROUGH DUE 1 EACH MISC MISCELLANE ONE (08:00)
[2022-07-19] MEDS: amLODIPine 10 MG TAB PO SCH (08:26)
[2022-07-19] MEDS: lisinopriL 20 MG TAB PO SCH (08:26)
[2022-07-19] MEDS: FUROSEMIDE 40 MG TAB PO SCH (08:26)
[2022-07-19] MEDS: IBUPROFEN 800 MG TAB PO PRN (08:26)
--- NOTE | 2022-07-19 08:32 | P.PN ---
Subjective Progress Note Date: 07/18/22 He feels his redness and tenderness is decreasing, he remains afebrile. He does note some increased swelling in the L foot. No chills, chest pain, shortness of breath. Objective - Vital Signs Vital signs: Vital Signs Temp 98.7 F 07/19/22 07:32 Pulse 84 07/19/22 07:32 Resp 18 07/19/22 07:32 BP 115/68 07/19/22 07:32 Pulse Ox 95 07/19/22 07:32 FiO2 Intake & Output 07/18/22 07/19/22 07/19/22 18:59 06:59 18:59 Intake Total 1050 Output Total 650 Balance -650 1050 Intake: Intake, IV Titration 550 Amount Clindamycin 900 mg In 50 Dextrose 5% in Water 50 ml @ 50 mls/hr IVPB Q8HR STEPH[facility] Rx#:[id number] Vancomycin 2,500 mg In 500 Sodium Chloride 0.9% 500 ml 500 ml @ 167 mls/hr IVPB Q12HR [facility] Rx#: [id number] Oral 500 Output: Urine 650 Other: Voiding Method Toilet # Voids 1 0 - Exam Gen: morbidly obese, NAD CV: RRR, no murmur. 2+ edema BLE Lungs: Normal effort, clear throughout Skin: LLE erythema, induration distal, no excoriation or abscess - Labs CBC & Chem 7: 07/17/22 06:01 07/17/22 06:01 Labs: Microbiology - Last 24 Hours (Table) 07/14/22 14:50 Blood Culture - Preliminary Blood No Growth after 96 hours Assessment and Plan Plan: Continue vancomycin and unasyn. Switch lasix from 20 mg PO to 40 mg IV today. ID following
[2022-07-19 09:17] LABS: Basophils # (A) 0.2 k/uL (0-0.2); Basophils % (A) 1 %; Eosinophils # (A) 0.2 k/uL (0-0.7); Eosinophils % (A) 1 %; HCT 34.6 % (39.0-53.0); HGB 10.7 gm/dL (13.0-17.5); Hypochromasia Slight; Lymphocytes # (A) 1.7 k/uL (1.0-4.8); Lymphocytes % (A) 8 %; MCH 28.2 pg (25.0-35.0); MCHC 31.1 g/dL (31.0-37.0); Mean Platelet Volume 7.8; Monocytes # (A) 1.3 k/uL (0-1.0); Monocytes % (A) 6 %; Neutrophils # (A) 16.7 k/uL (1.3-7.7); Neutrophils % (A) 82 %; Platelet Count 507 k/uL (150-450); RBC 3.81 m/uL (4.30-5.90); RDW 15.6 % (11.5-15.5); WBC 20.3 k/uL (3.8-10.6)
[2022-07-19 09:28] LABS: MCV 90.8 fL (80.0-100.0)
[2022-07-19 09:36] LABS: African American GFR (CKD) >90 (>60 ml/min/1.73 sqM); Anion Gap 12 mmol/L; Blood Urea Nitrogen 16 mg/dL (9-20); Carbon Dioxide 21 mmol/L (22-30); Chloride 102 mmol/L (98-107); Glucose 89 mg/dL (74-99); Non-African American GFR(CKD) 86 (>60 ml/min/1.73 sqM); Potassium 4.1 mmol/L (3.5-5.1); Sodium 135 mmol/L (137-145)
[2022-07-19] MEDS: VANCOMYCIN 2,500 MG in SODIUM CHLORIDE 0.9% 500 ML 500 ML IVPB SCH ×2 (09:58→19:44)
[2022-07-19] MEDS: SODIUM CHLORIDE 0.9% 1,000 ML IV SCH (16:15)
--- NOTE | 2022-07-19 16:41 | P.PN ---
Subjective Progress Note Date: 07/19/22 Left lower extremity edema improving. T-max 99.1. WBC increased to 20.3. Blood cultures reporting no growth. Maintained on IV antibiotics as per infectious disease. Denies chest pain, palpitations or shortness of breath. Maintaining O2 sats in the high 90s on room air. Objective - Vital Signs Vital signs: Vital Signs Temp 98.4 F 07/19/22 13:18 Pulse 89 07/19/22 13:18 Resp 20 07/19/22 13:18 BP 113/70 07/19/22 13:18 Pulse Ox 98 07/19/22 13:18 FiO2 Intake & Output 07/18/22 07/19/22 07/19/22 18:59 06:59 18:59 Intake Total 1050 240 Output Total 650 1200 Balance -650 1050 -960 Intake: Intake, IV Titration 550 Amount Clindamycin 900 mg In 50 Dextrose 5% in Water 50 ml @ 50 mls/hr IVPB Q8HR [facility] Rx#:[id number] Vancomycin 2,500 mg In 500 Sodium Chloride 0.9% 500 ml 500 ml @ 167 mls/hr IVPB Q12HR [facility] Rx#: [id number] Oral 500 240 Output: Urine 650 1200 Other: Voiding Method Toilet Toilet # Voids 1 0 - Exam - Exam Gen: morbidly obese, NAD CV: RRR, no murmur. 2+ edema BLE Lungs: Normal effort, clear throughout Skin: Decreasing LLE erythema, induration distal, no excoriation or abscess, - Labs CBC & Chem 7: 07/19/22 08:31 07/19/22 08:03 Labs: Abnormal Lab Results - Last 24 Hours (Table) 07/19/22 07/19/22 Range/Units 08:03 08:31 WBC 20.3 H (3.8-10.6) k/uL RBC 3.81 L (4.30-5.90) m/uL Hgb 10.7 L (13.0-17.5) gm/dL Hct 34.6 L (39.0-53.0) % RDW 15.6 H (11.5-15.5) % Plt Count 507 H (150-450) k/uL Neutrophils # 16.7 H (1.3-7.7) k/uL Monocytes # 1.3 H (0-1.0) k/uL Sodium 135 L (137-145) mmol/L Carbon Dioxide 21 L (22-30) mmol/L Calcium 8.0 L (8.4-10.2) mg/dL Microbiology - Last 24 Hours (Table) 07/14/22 14:50 Blood Culture - Preliminary Blood No Growth after 96 hours Assessment and Plan Assessment: Left leg cellulitis Morbid obesity, BMI 61.7 Plan: Continue on current medication regime ,monitoring and symptomatic treatment. Antibiotics as per infectious disease. Discussed passive range of motion's while in bed including ankle pumps. Daily Lasix dose increased to 40 mg by mouth daily. Close monitoring of renal function, electrolytes with repeat labs ordered for a.m. The impression and plan of care has been dictated as directed. : I performed a history and examination of this patient, discussed the same with the dictator. I agree with the dictator's note ,documented as a scribe. Any additional findings or plans will be noted.
[2022-07-20] MEDS: CLINDAMYCIN 900 MG in DEXTROSE 5% IN WATER 50 ML IVPB SCH ×6 (00:17→16:15)
[2022-07-20] MEDS: HYDROcodone/APAP 5-325MG 1 EACH TAB PO PRN ×3 (03:24→18:19)
[2022-07-20] MEDS: CYCLOBENZAPRINE 5 MG TAB PO PRN (03:24)
[2022-07-20] MEDS: IBUPROFEN 800 MG TAB PO PRN (08:59)
[2022-07-20] MEDS: lisinopriL 20 MG TAB PO SCH (09:00)
[2022-07-20] MEDS: FUROSEMIDE 40 MG TAB PO SCH (09:00)
[2022-07-20] MEDS: amLODIPine 10 MG TAB PO SCH (09:00)
[2022-07-20 09:02] LABS: HCT 31.5 % (39.6-50.0); HGB 10.2 g/dL (13.0-17.0); MCH 28.3 pg (27.0-32.0); MCHC 32.4 g/dL (32.0-37.0); MCV 87.3 fL (80.0-97.0); Mean Platelet Volume 9.6 fL (9.5-12.2); NRBC Per 100 WBC 0 /100 WBCS (0.0-0.0); Platelet Count 564 X 10*3/uL (140-440); RBC 3.61 X 10*6/uL (4.40-5.60); RDW 16.5 % (11.5-14.5); WBC 23.12 X 10*3/uL (4.50-10.00)
[2022-07-20 09:09] LABS: African American GFR (CKD) 93.5 (60.0-200.0); Anion Gap 9.1 mmol/L (10.00-18.00); BUN/Creat Ratio 11.75 Ratio (12.00-20.00); Blood Urea Nitrogen 14.1 mg/dL (9.0-27.0); Calcium 8.1 mg/dL (8.7-10.3); Carbon Dioxide 24.9 mmol/L (20.0-27.5); Non-African American GFR(CKD) 80.7 (60.0-200.0); Potassium 4.2 mmol/L (3.5-5.5)
[2022-07-20 10:10] LABS: Basophils # (M) 0 X 10*3/uL (0.00-0.10); Eosinophils # (M) 0 X 10*3/uL (0.04-0.35); Lymphocytes # (M) 0.92 X 10*3/uL (0.90-5.00); Metamyelocytes % 3 % (0-0); Monocytes # (M) 2.08 X 10*3/uL (0.20-1.00); Myelocytes % 2 % (0-0); Neutrophils # (M) 18.96 X 10*3/uL (2.00-8.90); Neutrophils % (M) 82 %
[2022-07-20] MEDS: VANCOMYCIN 2,500 MG in SODIUM CHLORIDE 0.9% 500 ML 500 ML IVPB SCH ×2 (10:15→21:22)
--- NOTE | 2022-07-20 15:25 | P.PN ---
Subjective Progress Note Date: 07/20/22 Left lower extremity edema improving. T-max 99.1. WBC increased to 20.3. Blood cultures reporting no growth. Maintained on IV antibiotics as per infectious disease. Denies chest pain, palpitations or shortness of breath. Maintaining O2 sats in the high 90s on room air. 07/20/2022 maintained on clindamycin and vancomycin as per infectious disease. Creatinine 1.2. T-max 99.5, WBC 23.2. Mild tachycardia, maintaining O2 sats in the 90s on room air. Oral diuretics increased yesterday with left lower extremity edema about the same. Reports pain of the affected site. Objective - Vital Signs Vital signs: Vital Signs Temp 98.1 F 07/20/22 08:00 Pulse 99 07/20/22 09:08 Resp 22 07/20/22 08:00 BP 165/69 07/20/22 09:08 Pulse Ox 97 07/20/22 08:00 FiO2 Intake & Output 07/19/22 07/20/22 07/20/22 18:59 06:59 18:59 Intake Total 360 1050 120 Output Total 1200 Balance -840 1050 120 Intake: Intake, IV Titration 550 Amount Clindamycin 900 mg In 50 Dextrose 5% in Water 50 ml @ 50 mls/hr IVPB Q8HR [facility] Rx#:[id number] Vancomycin 2,500 mg In 500 Sodium Chloride 0.9% 500 ml 500 ml @ 167 mls/hr IVPB Q12HR [facility] Rx#: [id number] Oral 360 500 120 Output: Urine 1200 Other: Voiding Method Toilet Toilet # Voids 3 0 - Exam - Exam Gen: morbidly obese, NAD CV: RRR, no murmur. 2+ edema BLE Lungs: Normal effort, clear throughout Skin: LLE erythema, induration distal, no excoriation or abscess, - Labs CBC & Chem 7: 07/20/22 05:47 07/20/22 05:47 Labs: Abnormal Lab Results - Last 24 Hours (Table) 07/20/22 07/20/22 Range/Units 05:47 05:47 WBC 23.12 H (4.50-10.00) X 10*3/uL RBC 3.61 L (4.40-5.60) X 10*6/uL Hgb 10.2 L (13.0-17.0) g/dL Hct 31.5 L (39.6-50.0) % RDW 16.5 H (11.5-14.5) % Plt Count 564 H (140-440) X 10*3/uL Plt Count Comment INCREASED A Metamyelocytes % 3 H (0-0) % Myelocytes % 2 H (0-0) % Neutrophils # (Manual) 18.96 H (2.00-8.90) X 10*3/uL Monocytes # (Manual) 2.08 H (0.20-1.00) X 10*3/uL Eosinophils # (Manual) 0 L (0.04-0.35) X 10*3/uL Anion Gap 9.10 L (10.00-18.00) mmol/L BUN/Creatinine Ratio 11.75 L (12.00-20.00) Ratio Calcium 8.1 L (8.7-10.3) mg/dL Microbiology - Last 24 Hours (Table) 07/14/22 14:50 Blood Culture - Preliminary Blood No Growth after 120 hours Assessment and Plan Assessment: Left leg cellulitis Morbid obesity, BMI 61.7 Plan: Continue on current medication regime ,monitoring and symptomatic treatment. Antibiotics as per infectious disease. Close monitoring of renal function, electrolytes with repeat labs ordered for a.m. maintain supportive c are. The impression and plan of care has been dictated as directed. : I performed a history and examination of this patient, discussed the same with the dictator. I agree with the dictator's note ,documented as a scribe. Any additional findings or plans will be noted.
[2022-07-20] MEDS ORDERED: CLINDAMYCIN 150 MG CAP PO SCH (16:00)
[2022-07-20] MEDS: SODIUM CHLORIDE 0.9% 1,000 ML IV SCH (16:16)
[2022-07-20] MEDS: ACETAMINOPHEN TAB 325 MG TAB PO PRN (21:37)
--- NOTE | 2022-07-20 23:44 | P.PN ---
Subjective Progress Note Date: 07/18/22 Principal diagnosis: Left lower extremity cellulitis Patient is a 32-year-old male morbidly obese presenting to the hospital with extensive swelling of the left lower extremity in this patient diagnosed with extensive left dorsum cellulitis the patient to have underlying cephalexin ALLERGY. On today's evaluation that is 07/18/2022, the patient continues to be afebrile, the patient swelling and redness of the left lower extremity has slightly decreased in intensity, the patient denies having any chest pain shortness of cough no abdominal pain no diarrhea Objective - Vital Signs Vital signs: Vital Signs Temp 98.3 F 07/18/22 11:29 Pulse 99 07/18/22 11:29 Resp 17 07/18/22 11:29 BP 138/83 07/18/22 11:29 Pulse Ox 98 07/18/22 11:29 FiO2 Intake & Output 07/17/22 07/18/22 07/18/22 18:59 06:59 18:59 Intake Total 600 Output Total 650 Balance 600 -650 Intake: Oral 600 Output: Urine 650 Other: Voiding Method Toilet Toilet # Voids 1 2 # Bowel Movements 1 - Exam GENERAL DESCRIPTION: Middle-age male lying in bed in no distress RESPIRATORY SYSTEM: Unlabored breathing , decreased breath sounds at bases HEART: S1 S2 regular rate and rhythm , ABDOMEN: Soft , no tenderness EXTREMITIES: Diffuse swelling redness of left lower extremity - Labs CBC & Chem 7: 07/20/22 05:47 07/20/22 05:47 Labs: Microbiology - Last 24 Hours (Table) 07/14/22 14:50 Blood Culture - Preliminary Blood No Growth after 72 hours Assessment and Plan (1) Cellulitis of left leg Current Visit: Yes Status: Acute Code(s): L03.116 - CELLULITIS OF LEFT LOWER LIMB SNOMED Code(s): 030044165 Plan: 1patient is in the hospital with extensive left lower extremity swelling and redness has been diagnosed with a cellulitis patient unfortunately to have cephalexin ALLERGY, patient to continue with CHRISTEN Wraps to keep the swelling down 2-patient to continue with the vancomycin and clindamycin and monitor clinical course closely Time with Patient: Less than 30
--- NOTE | 2022-07-20 23:45 | P.PN ---
Subjective Progress Note Date: 07/19/22 Principal diagnosis: Left lower extremity cellulitis Patient is a 32-year-old male morbidly obese presenting to the hospital with extensive swelling of the left lower extremity in this patient diagnosed with extensive left dorsum cellulitis the patient to have underlying cephalexin ALLERGY. On today's evaluation that is 07/19/2022, the patient remains to be afebrile, the patient still have significant pain and redness of the left lower extremity, the patient denies having any chest pain shortness of cough no abdominal pain no diarrhea Objective - Vital Signs Vital signs: Vital Signs Temp 98.4 F 07/19/22 13:18 Pulse 89 07/19/22 13:18 Resp 20 07/19/22 13:18 BP 113/70 07/19/22 13:18 Pulse Ox 98 07/19/22 13:18 FiO2 Intake & Output 07/18/22 07/19/22 07/19/22 18:59 06:59 18:59 Intake Total 1050 240 Output Total 650 1200 Balance -650 1050 -960 Intake: Intake, IV Titration 550 Amount Clindamycin 900 mg In 50 Dextrose 5% in Water 50 ml @ 50 mls/hr IVPB Q8HR [facility] Rx#:[id number] Vancomycin 2,500 mg In 500 Sodium Chloride 0.9% 500 ml 500 ml @ 167 mls/hr IVPB Q12HR [facility] Rx#: [id number] Oral 500 240 Output: Urine 650 1200 Other: Voiding Method Toilet Toilet # Voids 1 0 - Exam GENERAL DESCRIPTION: Middle-age male lying in bed in no distress RESPIRATORY SYSTEM: Unlabored breathing , decreased breath sounds at bases HEART: S1 S2 regular rate and rhythm , ABDOMEN: Soft , no tenderness EXTREMITIES: Diffuse swelling redness of left lower extremity - Labs CBC & Chem 7: 07/20/22 05:47 07/20/22 05:47 Labs: Abnormal Lab Results - Last 24 Hours (Table) 07/19/22 07/19/22 Range/Units 08:03 08:31 WBC 20.3 H (3.8-10.6) k/uL RBC 3.81 L (4.30-5.90) m/uL Hgb 10.7 L (13.0-17.5) gm/dL Hct 34.6 L (39.0-53.0) % RDW 15.6 H (11.5-15.5) % Plt Count 507 H (150-450) k/uL Neutrophils # 16.7 H (1.3-7.7) k/uL Monocytes # 1.3 H (0-1.0) k/uL Sodium 135 L (137-145) mmol/L Carbon Dioxide 21 L (22-30) mmol/L Calcium 8.0 L (8.4-10.2) mg/dL Microbiology - Last 24 Hours (Table) 07/14/22 14:50 Blood Culture - Preliminary Blood No Growth after 96 hours Assessment and Plan (1) Cellulitis of left leg Current Visit: Yes Status: Acute Code(s): L03.116 - CELLULITIS OF LEFT LOWER LIMB SNOMED Code(s): 362561377 Plan: 1patient is in the hospital with extensive left lower extremity swelling and redness has been diagnosed with a cellulitis patient unfortunately to have ce phalexin ALLERGY, patient to continue with CHRISTEN Wraps to keep the swelling down 2-patient to continue with the vancomycin and clindamycin inview of extensive cellulitis may need IV antibiotics on discharge Time with Patient: Less than 30
--- NOTE | 2022-07-20 23:48 | P.PN ---
Subjective Progress Note Date: 07/20/22 Principal diagnosis: Left lower extremity cellulitis Patient is a 32-year-old male morbidly obese presenting to the hospital with extensive swelling of the left lower extremity in this patient diagnosed with extensive left dorsum cellulitis the patient to have underlying cephalexin ALLERGY. On today's evaluation that is 07/20/2022, the patient is afebrile, the patient pain and redness of the left lower extremity has slightly decreased in intensity, the patient denies having any chest pain shortness of cough no abdominal pain no diarrhea with antibiotic therapy Objective - Vital Signs Vital signs: Vital Signs Temp 98.2 F 07/20/22 12:38 Pulse 99 07/20/22 12:38 Resp 20 07/20/22 12:38 BP 136/72 07/20/22 12:38 Pulse Ox 97 07/20/22 12:38 FiO2 Intake & Output 07/19/22 07/20/22 07/20/22 18:59 06:59 18:59 Intake Total 360 1050 120 Output Total 1200 Balance -840 1050 120 Intake: Intake, IV Titration 550 Amount Clindamycin 900 mg In 50 Dextrose 5% in Water 50 ml @ 50 mls/hr IVPB Q8HR STEPHEN Rx#:[id number] Vancomycin 2,500 mg In 500 Sodium Chloride 0.9% 500 ml 500 ml @ 167 mls/hr IVPB Q12HR STEPHEN Rx#: [id number] Oral 360 500 120 Output: Urine 1200 Other: Voiding Method Toilet Toilet # Voids 3 0 - Exam GENERAL DESCRIPTION: Middle-age male lying in bed in no distress RESPIRATORY SYSTEM: Unlabored breathing , decreased breath sounds at bases HEART: S1 S2 regular rate and rhythm , ABDOMEN: Soft , no tenderness EXTREMITIES: Diffuse swelling redness of left lower extremity , slightly decreased in intensity - Labs CBC & Chem 7: 07/20/22 05:47 07/20/22 05:47 Labs: Abnormal Lab Results - Last 24 Hours (Table) 07/20/22 07/20/22 Range/Units 05:47 05:47 WBC 23.12 H (4.50-10.00) X 10*3/uL RBC 3.61 L (4.40-5.60) X 10*6/uL Hgb 10.2 L (13.0-17.0) g/dL Hct 31.5 L (39.6-50.0) % RDW 16.5 H (11.5-14.5) % Plt Count 564 H (140-440) X 10*3/uL Plt Count Comment INCREASED A Metamyelocytes % 3 H (0-0) % Myelocytes % 2 H (0-0) % Neutrophils # (Manual) 18.96 H (2.00-8.90) X 10*3/uL Monocytes # (Manual) 2.08 H (0.20-1.00) X 10*3/uL Eosinophils # (Manual) 0 L (0.04-0.35) X 10*3/uL Anion Gap 9.10 L (10.00-18.00) mmol/L BUN/Creatinine Ratio 11.75 L (12.00-20.00) Ratio Calcium 8.1 L (8.7-10.3) mg/dL Microbiology - Last 24 Hours (Table) 07/14/22 14:50 Blood Culture - Preliminary Blood No Growth after 120 hours Assessment and Plan (1) Cellulitis of left leg Current Visit: Yes Status: Acute Code(s): L03.116 - CELLULITIS OF LEFT LOWER LIMB SNOMED Code(s): 711174468 Plan: 1patient is in the hospital with extensive left lower extremity swelling and redness has been diagnosed with a cellulitis patient unfortunately to have cephalexin ALLERGY, patient to continue with CHRISTEN Wraps to keep the swelling down 2-patientto continue with the vancomycin and clindamycin , pt has shown some clinical improvment but did have worsening of wbc , if further worsening will need CT leg to make sure no abscess that may need to be drained Time with Patient: Less than 30
[2022-07-21] MEDS: CLINDAMYCIN 900 MG in DEXTROSE 5% IN WATER 50 ML IVPB SCH ×6 (00:20→15:29)
[2022-07-21 05:42] LABS: African American GFR (CKD) >90 (>60 ml/min/1.73 sqM); Anion Gap 12 mmol/L; Blood Urea Nitrogen 14 mg/dL (9-20); Calcium 7.9 mg/dL (8.4-10.2); Carbon Dioxide 22 mmol/L (22-30); Chloride 101 mmol/L (98-107); Glucose 105 mg/dL (74-99); Non-African American GFR(CKD) 82 (>60 ml/min/1.73 sqM); Potassium 4.2 mmol/L (3.5-5.1); Sodium 135 mmol/L (137-145)
[2022-07-21 05:54] LABS: C Reactive Protein 23.7 mg/dL (<1.0)
[2022-07-21] MEDS: HYDROcodone/APAP 5-325MG 1 EACH TAB PO PRN ×2 (06:45→15:28)
[2022-07-21] MEDS ORDERED: MORPHINE SULFATE 4 MG/ML SYRINGE IVP STA (06:59)
[2022-07-21] MEDS: lisinopriL 20 MG TAB PO SCH (08:31)
[2022-07-21] MEDS: amLODIPine 10 MG TAB PO SCH (08:31)
[2022-07-21] MEDS: FUROSEMIDE 40 MG TAB PO SCH (08:31)
--- NOTE | 2022-07-21 09:08 | P.CNOR ---
History of Present Illness - HPI Consult date: 07/21/22 Consult reason: other (LLE pain) History of present illness: 32 yo male who presented last Sunday for LLE pain and ankle pain and swelling as well as with what he called "a bug" or flu like sx. Pt states at work he kicked a crate and hurt his ankle. He thinks he may have twisted it also at some point during that day but it become worse and his leg became very swollen, red and sensitive to touch. He presented to ED then last week and was admitted for edema and cellulitis. He states he had been getting much better in his leg, but last night the deon wrap was on a little too tight and so they took it off but since then he has been having increased pain in his leg to the touch and movement. He can move his toes and ankle w/o significant pain as well as flex/ext his knee but any gross motions cause extreme pain in his leg. He states no f/c/sob/cp at this time. Review of Systems 14 points review of systems completed and as stated in HPI, all other systems reviewed are negative. Past Medical History Past Medical History: No Reported History Additional Past Medical History / Comment(s): sepsis from ear infection 2017, nose bleeds x2, cellulitis bilateral lower legs, tennis elbow 2019. History of Any Multi-Drug Resistant Organisms: None Reported Past Surgical History: Adenoidectomy, Tonsillectomy Past Anesthesia/Blood Transfusion Reactions: No Reported Reaction Past Psychological History: No Psychological Hx Reported Smoking Status: Never smoker Past Alcohol Use History: None Reported Past Drug Use History: None Reported - Past Family History Mother Family Medical History: Congestive Heart Failure (CHF), Hypertension Father Family Medical History: Congestive Heart Failure (CHF), COPD, CVA/TIA Medications and Allergies Home Medications Medication Instructions Recorded Confirmed Type Furosemide [Lasix] 20 mg PO DAILY 07/14/22 07/14/22 History amLODIPine BESYLATE/BENAZEPRIL 1 cap PO DAILY 07/14/22 07/14/22 History [amLODIPine BESYLATE/BENAZEPRIL 10-20 mg] Allergies Allergy/AdvReac Type Severity Reaction Status Date / Time cephalexin [From Keflex] Allergy Rash/Hives Verified 07/14/22 16:55 Physical Examination Osteopathic Statement: *. No significant issues noted on an osteopathic structural exam other than those noted in the History and Physical/Consult. Patient is alert and oriented 3 appears well-nourished well-hydrated is in mild distress. They do not appear septic. On exam the patient has TTP of his LLE below the knee where he is very edematous and erythematous. There is cellulitic picture superimposed on venous insufficiency superimposed on lymphedema due to pt body habitus. There is TTP about the medial mal as well as swelling. Compartments are difficult to assess due to the patients severe skin pain from the cellulitis as well as his lymphedema and body habitus, but compartments are soft yet compression causes severe pain for the patient. Lower extremities with 5/5 strength in all major muscle groups Upper extremities show 5/5 strength in all major muscle groups. 2/4DTR all UE and LE b/l Patient shows a negative Homans, Agustin's, negative Babinski's negative clonus bilaterally. negative straight leg raise bilaterally. No tensioning signs. Cranial nerves II through XII are grossly intact. There is FROM that is painless of the b/l UE and LE in all major joints w/o pain. They are intact to light touch sensation in C5-T1 and L2 to S1 nerve distribution. Patient has palpable dorsalis pedis was posterior tibial pulses but difficult to feel due to his body habitus. Cap refill is brisk and <2 sec all toes. Results Shari doppler reviewed. Neg for DVT. - Labs Labs: Abnormal Lab Results - Last 24 Hours (Table) 07/20/22 07/20/22 07/21/22 Range/Units 05:47 05:47 04:53 WBC 23.12 H (4.50-10.00) X 10*3/uL RBC 3.61 L (4.40-5.60) X 10*6/uL Hgb 10.2 L (13.0-17.0) g/dL Hct 31.5 L (39.6-50.0) % RDW 16.5 H (11.5-14.5) % Plt Count 564 H (140-440) X 10*3/uL Plt Count Comment INCREASED A Metamyelocytes % 3 H (0-0) % Myelocytes % 2 H (0-0) % Neutrophils # (Manual) 18.96 H (2.00-8.90) X 10*3/uL Monocytes # (Manual) 2.08 H (0.20-1.00) X 10*3/uL Eosinophils # (Manual) 0 L (0.04-0.35) X 10*3/uL Sodium 135 L (137-145) mmol/L Anion Gap 9.10 L (10.00-18.00) mmol/L BUN/Creatinine Ratio 11.75 L (12.00-20.00) Ratio Glucose 105 H (74-99) mg/dL Calcium 8.1 L 7.9 L (8.7-10.3) mg/dL C-Reactive Protein 23.7 H (<1.0) mg/dL Microbiology - Last 24 Hours (Table) 07/14/22 14:50 Blood Culture - Final Blood No Growth after 144 hours H & H 07/14/22 07/15/22 07/16/22 Range/Units 13:45 05:43 06:00 Hgb 12.6 L 11.5 L 12.6 L (13.0-17.5) gm/dL Hct 38.8 L 35.3 L 38.6 L (39.0-53.0) % 07/17/22 07/19/22 07/20/22 Range/Units 06:01 08:31 05:47 Hgb 10.6 L 10.7 L 10.2 L (13.0-17.5) gm/dL Hct 33.1 L 34.6 L 31.5 L (39.0-53.0) % Result Diagrams: 07/20/22 05:47 07/21/22 04:53 Assessment and Plan Assessment: 1. 32 yo male with LLE pain swelling 2. Cellulitis LLE 3. lymphedema 4. MO 5. r/o compartment Plan: -Compartment pressure measurement with Gildardo needle -Cont with supportive care abx etc -Cont with vascular sx care -Will follow
[2022-07-21 09:38] LABS: Basophils # (M) 0.22 X 10*3/uL (0.00-0.10); Eosinophils # (M) 0.22 X 10*3/uL (0.04-0.35); HCT 31.7 % (39.6-50.0); HGB 10.1 g/dL (13.0-17.0); Lymphocytes # (M) 1.11 X 10*3/uL (0.90-5.00); MCH 28.1 pg (27.0-32.0); MCHC 31.9 g/dL (32.0-37.0); MCV 88.3 fL (80.0-97.0); Mean Platelet Volume 9.8 fL (9.5-12.2); Metamyelocytes % 1 % (0-0); Monocytes # (M) 2.21 X 10*3/uL (0.20-1.00); Myelocytes % 1 % (0-0); NRBC Per 100 WBC 0 /100 WBCS (0.0-0.0); Neutrophils # (M) 17.92 X 10*3/uL (2.00-8.90); Neutrophils % (M) 81 %; Platelet Count 640 X 10*3/uL (140-440); RBC 3.59 X 10*6/uL (4.40-5.60); RDW 16.5 % (11.5-14.5); WBC 22.12 X 10*3/uL (4.50-10.00)
[2022-07-21] MEDS: VANCOMYCIN 2,500 MG in SODIUM CHLORIDE 0.9% 500 ML 500 ML IVPB SCH ×2 (10:30→21:06)
[2022-07-21] MEDS: ENOXAPARIN 40 MG/0.4 ML SYRINGE SQ SCH (10:30)
--- NOTE | 2022-07-21 12:32 | US ---
EXAMINATION TYPE: US venous doppler duplex LE LT DATE OF EXAM: 07/21/2022 9:07 AM COMPARISON: 07/14/2022 CLINICAL HISTORY: 32-year-old male cellulitis, swelling, rule out DVT. Redness. Swelling. Pain. SIDE PERFORMED: Left TECHNIQUE: The lower extremity deep venous system is examined utilizing real time linear array sonog kelly with graded compression, doppler sonography and color-flow sonography. FINDINGS: VESSELS IMAGED: Common Femoral Vein Deep Femoral Vein- not visualized Greater Saphenous Vein * Femoral Vein Popliteal Vein Small Saphenous Vein * Proximal Calf Veins- not visualized (* superficial vessels) Tree Sapper notes:Limited due to patient body habitus Left Leg: Negative for acute DVT. Compressions deferred due to unable to visualize vessels because of patient body habitus. IMPRESSION: Exam limited by patient body habitus. Unable to adequately visualize the deep femoral vein or upper c tarun veins. Otherwise, no visualized DVT down to the knee.
--- NOTE | 2022-07-21 13:09 | P.GSCN ---
History of Present Illness Consult date: 07/21/22 Reason for Consult: Evaluate for compartment syndrome Requesting physician: David Sandoval History of present illness: This a pleasant 32-year-old morbidly obese male who presented to the emergency department on 07/14/2022 with concerns for increased swelling and redness to his left lower extremity. He also states that he was not feeling well he felt hot and sweaty having diarrhea with symptoms progressively getting worse and came to the emergency department for further evaluation. Patient denies any injury to t he left lower extremity. States that laying and redness was worse prior to antibiotics. States that he had swelling and redness up through his thigh. He is able to move bilateral lower extremities. He denies any current fevers or chills, no abdominal pain. Still has significant amount of tenderness to palpation on the left lower extremity, he also states increased discomfort due to the swelling. Due to increased swelling and pain yesterday vascular surgery was consulted to evaluate for possible compartment syndrome. States that nursing has been wrapping his left lower extremity with an Jorge wrap which causes increased pain in the morning when they take it off. He does however state that pain and redness has improved today compared to yesterday. He had a venous duplex on admission which was negative for DVT. Repeat venous duplex done this morning the left lower extremity again negative for acute DVT. Patient states a few years ago he had similar symptoms with increased swelling in the lower extremities and cellulitis. He states he just recently has established with a PCP and he is trying to work on weight loss. He states he has been ambulatory prior to coming in and continues to be ambulatory well being in the hospital. Infectious disease has been following since his admission. He has had a low- grade temp yesterday evening, with a max temp of 101.5 on admission. On initial venous duplex of the left lower extremity there were multiple enlarged lymph nodes in the left groin, largest measuring 3.6 x 2.1 cm. The patient is currently on IV clindamycin and vancomycin. Review of Systems A 14 point review systems was completed all pertinent positives and negatives as stated in the HPI. Past Medical History Past Medical History: No Reported History Additional Past Medical History / Comment(s): sepsis from ear infection 2017, nose bleeds x2, cellulitis bilateral lower legs, tennis elbow 2019. History of Any Multi-Drug Resistant Organisms: None Reported Past Surgical History: Adenoidectomy, Tonsillectomy Past Anesthesia/Blood Transfusion Reactions: No Reported Reaction Past Psychological History: No Psychological Hx Reported Smoking Status: Never smoker Past Alcohol Use History: None Reported Past Drug Use History: None Reported - Past Family History Mother Family Medical History: Congestive Heart Failure (CHF), Hypertension Father Family Medical History: Congestive Heart Failure (CHF), COPD, CVA/TIA Medications and Allergies Home Medications Medication Instructions Recorded Confirmed Type Furosemide [Lasix] 20 mg PO DAILY 07/14/22 07/14/22 History amLODIPine BESYLATE/BENAZEPRIL 1 cap PO DAILY 07/14/22 07/14/22 History [amLODIPine BESYLATE/BENAZEPRIL 10-20 mg] Allergies Allergy/AdvReac Type Severity Reaction Status Date / Time cephalexin [From Keflex] Allergy Rash/Hives Verified 07/14/22 16:55 Surgical - Exam Vital Signs Temp Pulse Resp BP Pulse Ox 98.3 F 111 H 26 H 112/58 96 07/14/22 12:43 07/14/22 12:43 07/14/22 12:43 07/14/22 12:43 07/14/22 12:43 General appearance: The patient is alert, oriented, appears in no acute distress. Morbidly obese. HET: Head is normocephalic and atraumatic. Pupils are equal and reactive. Neck: Supple without lymphadenopathy. Trachea midline. No audible carotid bruit. Heart: S1 S2. Regular rate and rhythm. Lungs: Clear to auscultation bilaterally. Abdomen: Soft, nontender, nondistended. Extremities: Bilateral lower extremity edema. Left greater than right. Left lower extremity redness to the knee. No open wounds or ulcers noted. Warm to the touch. Tender to palpation up to the knee, especially on on oliver. Patient has good motor sensory, palpable bilateral dorsalis pedis pulses. Good capillary refill. Full range of motion. Neurological: No focal deficits. Strength and sensation are grossly intact. Results - Labs 07/21/22 04:53 07/21/22 04:53 Abnormal Lab Results - Last 24 Hours (Table) 07/20/22 07/20/22 07/21/22 Range/Units 05:47 05:47 04:53 WBC 23.12 H (4.50-10.00) X 10*3/uL RBC 3.61 L (4.40-5.60) X 10*6/uL Hgb 10.2 L (13.0-17.0) g/dL Hct 31.5 L (39.6-50.0) % RDW 16.5 H (11.5-14.5) % Plt Count 564 H (140-440) X 10*3/uL Plt Count Comment INCREASED A Metamyelocytes % 3 H (0-0) % Myelocytes % 2 H (0-0) % Neutrophils # (Manual) 18.96 H (2.00-8.90) X 10*3/uL Monocytes # (Manual) 2.08 H (0.20-1.00) X 10*3/uL Eosinophils # (Manual) 0 L (0.04-0.35) X 10*3/uL Sodium 135 L (137-145) mmol/L Anion Gap 9.10 L (10.00-18.00) mmol/L BUN/Creatinine Ratio 11.75 L (12.00-20.00) Ratio Glucose 105 H (74-99) mg/dL Calcium 8.1 L 7.9 L (8.7-10.3) mg/dL C-Reactive Protein 23.7 H (<1.0) mg/dL Microbiology - Last 24 Hours (Table) 07/14/22 14:50 Blood Culture - Final Blood No Growth after 144 hours Diabetes panel 07/20/22 07/21/22 Range/Units 05:47 04:53 Sodium 135 135 L (135-145) mmol/L Potassium 4.2 4.2 (3.5-5.5) mmol/L Chloride 101 101 (96-109) mmol/L Carbon Dioxide 24.9 22 (20.0-27.5) mmol/L BUN 14.1 14 (9.0-27.0) mg/dL Creatinine 1.2 1.19 (0.6-1.5) mg/dL Glucose 107 105 H (70-110) mg/dL Calcium 8.1 L 7.9 L (8.7-10.3) mg/dL Calcium panel 07/20/22 07/21/22 Range/Units 05:47 04:53 Calcium 8.1 L 7.9 L (8.7-10.3) mg/dL Pituitary panel 07/20/22 07/21/22 Range/Units 05:47 04:53 Sodium 135 135 L (135-145) mmol/L Potassium 4.2 4.2 (3.5-5.5) mmol/L Chloride 101 101 (96-109) mmol/L Carbon Dioxide 24.9 22 (20.0-27.5) mmol/L BUN 14.1 14 (9.0-27.0) mg/dL Creatinine 1.2 1.19 (0.6-1.5) mg/dL Glucose 107 105 H (70-110) mg/dL Calcium 8.1 L 7.9 L (8.7-10.3) mg/dL Adrenal panel 07/20/22 07/21/22 Range/Units 05:47 04:53 Sodium 135 135 L (135-145) mmol/L Potassium 4.2 4.2 (3.5-5.5) mmol/L Chloride 101 101 (96-109) mmol/L Carbon Dioxide 24.9 22 (20.0-27.5) mmol/L BUN 14.1 14 (9.0-27.0) mg/dL Creatinine 1.2 1.19 (0.6-1.5) mg/dL Glucose 107 105 H (70-110) mg/dL Calcium 8.1 L 7.9 L (8.7-10.3) mg/dL - Imaging Comments: Venous duplex reviewed as stated in HPI Assessment and Plan Assessment: 1. Left lower extremity swelling 2. Left lower extremity cellulitis 3. Lymphedema, multiple enlarged lymph nodes in the left groin seen on venous duplex 4. Morbid obesity 5. Leukocytosis Plan: 1. Recommend consultation to orthopedic surgery to evaluate for compartment syndrome due to compartment pressure 2. Continue with recommendations from infectious disease on IV antibiotics 3. Consider left lower extremity CT to evaluate further infection/abscess, will defer to recommendations from infectious disease 4. Continue with elevation of left lower extremity and Jorge wrap 5. Discussed importance of weight loss, low-sodium diet 6. There is no indication at this time for any vascular surgical intervention Thank you for this consultation, we will continue to follow. The impression and plan of care has been dictated as directed. Dr. Lorenzo I performed a history and examination of this patient, discussed the same with the dictator. I agree with the dictator's note ,documented as a scribe. Any additional findings or plans will be noted.
--- NOTE | 2022-07-21 13:44 | P.PCN ---
Date of Procedure: 07/21/22 Preoperative Diagnosis: Cellulitis LLE -Lymphededma Postoperative Diagnosis: same Procedure(s) Performed: compartment pressure test Surgeon: Karl Mendez Estimated Blood Loss (ml): 1 Pathology: none sent Disposition: no change (patient remained in bed throughout procedure and stable before and after procedure.) Indications for Procedure: lymphedema; pain; taut anterior and posterior compartments LLE Operative Findings: left lower extremity anterior compartment pressure readin mm Hg left lower extrmiety posterior compartment pressure readin mm Hg Description of Procedure: Description of procedure was explained to patient. Nurse present. Consent obtained. Timeout performed. Sterile field set up. Left lower extremity was draped with sterile towels and prepped with alcohol swabs. [employer] compartment syndrome pressure monitor was set up. Pressure mointor was zeroed and anterior compartment was palpated about 1 cm lateral to proximal 1/3 of tibial shaft. Needle was inserted into anterior compartment and 0.5 cc saline injected. Pressure read 20 mm Hg. Posterior compartment palpated and david needle was inserted. 0.5 cc saline injected and pressure read 17 mm Hg. Needle was removed. Bandages were placed over injection sites. Needle placed in sharps container.
--- NOTE | 2022-07-21 16:38 | P.PN ---
Subjective Progress Note Date: 07/21/22 Left lower extremity edema improving. T-max 99.1. WBC increased to 20.3. Blood cultures reporting no growth. Maintained on IV antibiotics as per infectious disease. Denies chest pain, palpitations or shortness of breath. Maintaining O2 sats in the high 90s on room air. 07/20/2022 maintained on clindamycin and vancomycin as per infectious disease. Creatinine 1.2. T-max 99.5, WBC 23.2. Mild tachycardia, maintaining O2 sats in the 90s on room air. Oral diuretics increased yesterday with left lower extremity edema about the same. Reports pain of the affected site. 07/21/22 increased left calf pain. Venous Doppler of left lower extremity repeated, limited study, reporting negative for acute DVT-unable to adequately visualize the deep femoral vein or upper calf veins .Vascular consulted re garding potential compartment syndrome. Complains of Jorge wrap tightness, which has been currently removed this morning. Continues on clindamycin and vancomycin . Renal function stable.T-max 99.8, WBC 22.12. Objective - Vital Signs Vital signs: Vital Signs Temp 99.7 F H 07/21/22 00:21 Pulse 105 H 07/21/22 00:21 Resp 19 07/21/22 00:21 BP 152/72 07/21/22 00:21 Pulse Ox 97 07/21/22 00:21 FiO2 Intake & Output 07/20/22 07/21/22 07/21/22 18:59 06:59 18:59 Intake Total 240 1100 Output Total 550 Balance 240 550 Intake: Intake, IV Titration 600 Amount Clindamycin 900 mg In 100 Dextrose 5% in Water 50 ml @ 50 mls/hr IVPB Q8HR STE[facility] Rx#:[id number] Vancomycin 2,500 mg In 500 Sodium Chloride 0.9% 500 ml 500 ml @ 167 mls/hr IVPB Q12HR STEPH[facility] Rx#: [id number] Oral 240 500 Output: Urine 550 Other: Voiding Method Toilet # Voids 2 - Exam - Exam Gen: morbidly obese, NAD CV: RRR, no murmur. 2+ edema BLE Lungs: Normal effort, clear throughout Skin: Left thigh redness resolved.Decreased LLE erythema, induration distal, no excoriation or abscess. Positive DP pulse. - Labs CBC & Chem 7: 07/21/22 04:53 07/21/22 04:53 Labs: Abnormal Lab Results - Last 24 Hours (Table) 07/20/22 07/20/22 07/21/22 Range/Units 05:47 05:47 04:53 WBC 23.12 H (4.50-10.00) X 10*3/uL RBC 3.61 L (4.40-5.60) X 10*6/uL Hgb 10.2 L (13.0-17.0) g/dL Hct 31.5 L (39.6-50.0) % RDW 16.5 H (11.5-14.5) % Plt Count 564 H (140-440) X 10*3/uL Plt Count Comment INCREASED A Metamyelocytes % 3 H (0-0) % Myelocytes % 2 H (0-0) % Neutrophils # (Manual) 18.96 H (2.00-8.90) X 10*3/uL Monocytes # (Manual) 2.08 H (0.20-1.00) X 10*3/uL Eosinophils # (Manual) 0 L (0.04-0.35) X 10*3/uL Sodium 135 L (137-145) mmol/L Anion Gap 9.10 L (10.00-18.00) mmol/L BUN/Creatinine Ratio 11.75 L (12.00-20.00) Ratio Glucose 105 H (74-99) mg/dL Calcium 8.1 L 7.9 L (8.7-10.3) mg/dL C-Reactive Protein 23.7 H (<1.0) mg/dL Microbiology - Last 24 Hours (Table) 07/14/22 14:50 Blood Culture - Final Blood No Growth after 144 hours Assessment and Plan Assessment: Left leg cellulitis Morbid obesity, BMI 61.7 Leukocytosis Plan: Continue on current medication regime ,monitoring and symptomatic treatment. Maintain Antibiotics as per infectious disease. Compartment studies pending as per orthopedic surgery secondary to cellulitis/lymphedema. Close monitoring of renal function, electrolytes with repeat labs ordered for a.m. potential CT of lower extremity as per ID being considered. Pain management. The impression and plan of care has been dictated as directed. : I performed a history and examination of this patient, discussed the same with the dictator. I agree with the dictator's note ,documented as a scribe. Any additional findings or plans will be noted.
[2022-07-21] MEDS: SODIUM CHLORIDE 0.9% 1,000 ML IV SCH (16:50)
[2022-07-21] MEDS: ACETAMINOPHEN TAB 325 MG TAB PO PRN (19:33)
[2022-07-22] MEDS: CLINDAMYCIN 900 MG in DEXTROSE 5% IN WATER 50 ML IVPB SCH ×6 (00:46→17:05)
[2022-07-22] MEDS: IBUPROFEN 800 MG TAB PO PRN ×2 (00:53→14:11)
[2022-07-22] MEDS: HYDROcodone/APAP 5-325MG 1 EACH TAB PO PRN ×2 (07:27→22:37)
[2022-07-22 08:52] LABS: HCT 31.3 % (39.6-50.0); HGB 9.8 g/dL (13.0-17.0); MCH 28.1 pg (27.0-32.0); MCHC 31.3 g/dL (32.0-37.0); MCV 89.7 fL (80.0-97.0); Mean Platelet Volume 9.4 fL (9.5-12.2); NRBC Per 100 WBC 0 /100 WBCS (0.0-0.0); Platelet Count 584 X 10*3/uL (140-440); RBC 3.49 X 10*6/uL (4.40-5.60); RDW 16.6 % (11.5-14.5); WBC 19.72 X 10*3/uL (4.50-10.00)
[2022-07-22 08:56] LABS: African American GFR (CKD) 84.9 (60.0-200.0); Anion Gap 8.3 mmol/L (10.00-18.00); BUN/Creat Ratio 10.38 Ratio (12.00-20.00); Blood Urea Nitrogen 13.5 mg/dL (9.0-27.0); Calcium 8.1 mg/dL (8.7-10.3); Carbon Dioxide 26.7 mmol/L (20.0-27.5); Non-African American GFR(CKD) 73.2 (60.0-200.0); Potassium 4.2 mmol/L (3.5-5.5)
[2022-07-22] MEDS: amLODIPine 10 MG TAB PO SCH (09:13)
[2022-07-22] MEDS: lisinopriL 20 MG TAB PO SCH (09:13)
[2022-07-22] MEDS: ENOXAPARIN 40 MG/0.4 ML SYRINGE SQ SCH (09:13)
[2022-07-22] MEDS: FUROSEMIDE 40 MG TAB PO SCH (09:13)
--- NOTE | 2022-07-22 09:16 | P.PN ---
Subjective Progress Note Date: 07/22/22 Principal diagnosis: -Cellulitis LLE -Lymphedema Patient was seen at bedside this morning sitting up at the edge of bed. Patient says yesterday he felt that his left lower extremity symptoms have not improved since the day prior. Patient says he was able to walk around the room a little bit. Patient mentions this swelling over the past week seems to have gone down, however, patient notes that his left lower extremity is still very swollen and red. Patient says his left lower extremity is tender to the touch. However, patient does have good movement in his ankle and foot. Patient says he has tried to elevate his left lower extremity in bed. Patient is still concerned that the cause of his left lower extremity pain and swelling was due to the Jorge wrap that was placed over his leg. Patient denies chest pain, fever, shortness of breath, nausea, and, change in vision, loss of bowel/bladder control. Objective - Vital Signs Vital signs: Vital Signs Temp 98.1 F 07/22/22 07:58 Pulse 92 07/22/22 07:58 Resp 18 07/22/22 07:58 BP 138/98 07/22/22 07:58 Pulse Ox 98 07/22/22 07:58 FiO2 Intake & Output 07/21/22 07/22/22 07/22/22 18:59 06:59 18:59 Intake Total 298 Output Total 1000 350 Balance -702 -350 Intake: Oral 298 Output: Urine 1000 350 Other: Voiding Method Toilet Urinal # Voids 2 - Exam Negative for any open fractures. Left lower extremity presents with blistering and edema. Left lower extremity is erythematous. 2+ edema on exam of the left lower extremity. Patient has severe TTP in LLE in left calf. Compartments are somewhat compressible. Sensation is equal, symmetric, by intact throughout the upper and lower extremities. Dorsalis pedis pulses are present bilaterally. Capillary refill is under 3 seconds in digits of upper and lower extremities. Nontender to palpation throughout rest exam. Patient has good range of motion bilateral lower and upper extremities on exam. Motor exam 4+/5 in left lower extremity. 5/5 in all other major motor groups. Negative Homans bilaterally. - Labs CBC & Chem 7: 07/22/22 05:02 07/22/22 05:02 Labs: Abnormal Lab Results - Last 24 Hours (Table) 07/21/22 Range/Units 04:53 WBC 22.12 H (4.50-10.00) X 10*3/uL RBC 3.59 L (4.40-5.60) X 10*6/uL Hgb 10.1 L (13.0-17.0) g/dL Hct 31.7 L (39.6-50.0) % MCHC 31.9 L (32.0-37.0) g/dL RDW 16.5 H (11.5-14.5) % Plt Count 640 H (140-440) X 10*3/uL Plt Count Comment INCREASED A Metamyelocytes % 1 H (0-0) % Myelocytes % 1 H (0-0) % Neutrophils # (Manual) 17.92 H (2.00-8.90) X 10*3/uL Monocytes # (Manual) 2.21 H (0.20-1.00) X 10*3/uL Basophils # (Manual) 0.22 H (0.00-0.10) X 10*3/uL Assessment and Plan Assessment: Cellulitis LLE -Lymphededma - Rule out compartment syndrome Plan: 1. Cellulitis LLE; Lymphededma; r/o compartment syndrome - [place] compartment pressure K was used yesterday and compartment pressures were obtained from the left lower extremity in the anterior compartment- 20 mm Hg and posterior compartment 17 mm Hg, which are both within normal range. Patient still does have 2+ edema in the left lower extremity and severe TTP along calf in LLE. The calf does seem somewhat compressible on exam. At this time we are not recommending any emergency/urgent orthopedic surgical intervention. We are recommending for the patient to elevate left lower extremity at a 45 angle delayed help with some of the swelling. We'll continue to follow patient in hospital 2. Appreciate medical management 3. Pain management - Tylenol; [place]; Flexeril 4. DVT prophylaxis - Lovenox 5. GI recs 6. PT/OT - WBAT 7. Appreciate consult Time with Patient: Less than 30
[2022-07-22] MEDS: VANCOMYCIN 2,500 MG in SODIUM CHLORIDE 0.9% 500 ML 500 ML IVPB SCH ×2 (10:25→21:16)
[2022-07-22 11:56] LABS: Basophils # (M) 0 X 10*3/uL (0.00-0.10); Lymphocytes # (M) 1.18 X 10*3/uL (0.90-5.00); Metamyelocytes % 1 % (0-0); Monocytes # (M) 2.56 X 10*3/uL (0.20-1.00); Neutrophils # (M) 15.58 X 10*3/uL (2.00-8.90); Neutrophils % (M) 79 %; Toxic Granulation 2+
[2022-07-22] MEDS: SODIUM CHLORIDE 0.9% 1,000 ML IV SCH (17:24)
--- NOTE | 2022-07-22 17:36 | CT ---
EXAMINATION TYPE: CT lower leg LT w con DATE OF EXAM: 07/22/2022 COMPARISON: None HISTORY: left lower leg abscess CT DLP: 812.5 mGycm Automated exposure control for dose reduction was used. CONTRAST: Performed with IV Contrast, patient injected with 100 mL of Isovue 300. Images obtained from the distal femur to the bottom of the foot with with the IV contrast. Contrast was Isovue 100 mL. There is diffuse subcutaneous edema around the lower leg. No discrete drainable fluid collection. The tibia and fibula. Tach. No fracture seen. No focal bone destruction. The bones of the foot appear in tact. No focal bone destruction. Metatarsals are intact. There are small plantar and Achilles calcane al spurring. There is subcutaneous edema of the foot. IMPRESSION: Diffuse subcutaneous edema of the entire lower leg. No evidence of abscess.
[2022-07-22] MEDS: DOCUSATE 100 MG CAP PO SCH (20:26)
--- NOTE | 2022-07-23 01:02 | P.PN ---
Subjective Progress Note Date: 07/21/22 Principal diagnosis: Left lower extremity cellulitis Patient is a 32-year-old male morbidly obese presenting to the hospital with extensive swelling of the left lower extremity in this patient diagnosed with extensive left dorsum cellulitis the patient to have underlying cephalexin ALLERGY. On today's evaluation that is 07/21/2022, the patient did have a low-grade fever of 99.7F, the patient pain and redness of the left lower extremity has slightly decreased in intensity, the patient denies having chest pain shortness of cough no abdominal pain no diarrhea with antibiotic therapy Objective - Vital Signs Vital signs: Vital Signs Temp 98.6 F 07/21/22 08:00 Pulse 101 H 07/21/22 08:00 Resp 18 07/21/22 08:30 BP 127/77 07/21/22 08:00 Pulse Ox 97 07/21/22 08:00 FiO2 Intake & Output 07/20/22 07/21/22 07/21/22 18:59 06:59 18:59 Intake Total 240 1100 180 Output Total 550 Balance 240 550 180 Intake: Intake, IV Titration 600 Amount Clindamycin 900 mg In 100 Dextrose 5% in Water 50 ml @ 50 mls/hr IVPB Q8HR [facility] Rx#:[id number] Vancomycin 2,500 mg In 500 Sodium Chloride 0.9% 500 ml 500 ml @ 167 mls/hr IVPB Q12HR [facility] Rx#: [id number] Oral 240 500 180 Output: Urine 550 Other: Voiding Method Toilet # Voids 2 - Exam GENERAL DESCRIPTION: Middle-age male lying in bed in no distress RESPIRATORY SYSTEM: Unlabored breathing , decreased breath sounds at bases HEART: S1 S2 regular rate and rhythm , ABDOMEN: Soft , no tenderness EXTREMITIES: Diffuse swelling redness of left lower extremity , slightly decreased in intensity - Labs CBC & Chem 7: 07/22/22 05:02 07/22/22 05:02 Labs: Abnormal Lab Results - Last 24 Hours (Table) 07/21/22 07/21/22 Range/Units 04:53 04:53 WBC 22.12 H (4.50-10.00) X 10*3/uL RBC 3.59 L (4.40-5.60) X 10*6/uL Hgb 10.1 L (13.0-17.0) g/dL Hct 31.7 L (39.6-50.0) % MCHC 31.9 L (32.0-37.0) g/dL RDW 16.5 H (11.5-14.5) % Plt Count 640 H (140-440) X 10*3/uL Plt Count Comment INCREASED A Metamyelocytes % 1 H (0-0) % Myelocytes % 1 H (0-0) % Neutrophils # (Manual) 17.92 H (2.00-8.90) X 10*3/uL Monocytes # (Manual) 2.21 H (0.20-1.00) X 10*3/uL Basophils # (Manual) 0.22 H (0.00-0.10) X 10*3/uL Sodium 135 L (137-145) mmol/L Glucose 105 H (74-99) mg/dL Calcium 7.9 L (8.4-10.2) mg/dL C-Reactive Protein 23.7 H (<1.0) mg/dL Microbiology - Last 24 Hours (Table) 07/14/22 14:50 Blood Culture - Final Blood No Growth after 144 hours Assessment and Plan (1) Cellulitis of left leg Current Visit: Yes Status: Acute Code(s): L03.116 - CELLULITIS OF LEFT LOWER LIMB SNOMED Code(s): 579769519 Plan: 1patient is in the hospital with extensive left lower extremity swelling and redness has been diagnosed with a cellulitis patient unfortunately to have cephalexin ALLERGY, patient to continue with CHRISTEN Wraps to keep the swelling down 2-patient still have significant cellulitis has been evaluated by surgery and plan for possible CT, patient to continue with the vancomycin and clindamycin Time with Patient: Less than 30
--- NOTE | 2022-07-23 01:04 | P.PN ---
Subjective Progress Note Date: 07/22/22 Principal diagnosis: Left lower extremity cellulitis Patient is a 32-year-old male morbidly obese presenting to the hospital with extensive swelling of the left lower extremity in this patient diagnosed with extensive left dorsum cellulitis the patient to have underlying cephalexin ALLERGY. On today's evaluation that is 07/22/2022, the patient is afebrile today F, the patient pain and redness of the left lower extremity has slightly decreased in intensity, patient denies having any open wound or any drainage, the patient denies having chest pain shortness of cough no abdominal pain no diarrhea Objective - Vital Signs Vital signs: Vital Signs Temp 99.4 F 07/22/22 13:55 Pulse 117 H 07/22/22 13:55 Resp 18 07/22/22 13:55 BP 132/79 07/22/22 13:55 Pulse Ox 95 07/22/22 13:55 FiO2 Intake & Output 07/21/22 07/22/22 07/22/22 18:59 06:59 18:59 Intake Total 298 480 Output Total 1000 350 Balance -702 130 Intake: Oral 298 480 Output: Urine 1000 350 Other: Voiding Method Toilet Urinal # Voids 2 - Exam GENERAL DESCRIPTION: Middle-age male lying in bed in no distress RESPIRATORY SYSTEM: Unlabored breathing , decreased breath sounds at bases HEART: S1 S2 regular rate and rhythm , ABDOMEN: Soft , no tenderness EXTREMITIES: Diffuse swelling redness of left lower extremity , slightly decreased in intensity - Labs CBC & Chem 7: 07/22/22 05:02 07/22/22 05:02 Labs: Abnormal Lab Results - Last 24 Hours (Table) 07/22/22 07/22/22 Range/Units 05:02 05:02 WBC 19.72 H (4.50-10.00) X 10*3/uL RBC 3.49 L (4.40-5.60) X 10*6/uL Hgb 9.8 L (13.0-17.0) g/dL Hct 31.3 L (39.6-50.0) % MCHC 31.3 L (32.0-37.0) g/dL RDW 16.6 H (11.5-14.5) % Plt Count 584 H (140-440) X 10*3/uL Plt Count Comment INCREASED A MPV 9.4 L (9.5-12.2) fL Metamyelocytes % 1 H (0-0) % Neutrophils # (Manual) 15.58 H (2.00-8.90) X 10*3/uL Monocytes # (Manual) 2.56 H (0.20-1.00) X 10*3/uL Anion Gap 8.30 L (10.00-18.00) mmol/L BUN/Creatinine Ratio 10.38 L (12.00-20.00) Ratio Calcium 8.1 L (8.7-10.3) mg/dL Assessment and Plan (1) Cellulitis of left leg Current Visit: Yes Status: Acute Code(s): L03.116 - CELLULITIS OF LEFT LOWER LIMB SNOMED Code(s): 791024673 Plan: 1patient is in the hospital with extensive left lower extremity swelling and redness has been diagnosed with a cellulitis patient unfortunately to have cephalexin ALLERGY, patient to continue with CHRISTEN Wraps to keep the swelling down 2-patient still have significant cellulitis we will obtain CT of the left lower extremity to make sure no evidence of any abscess 3 patient to continue with the vancomycin and clindamycin and monitor clinical course closely Time with Patient: Less than 30
[2022-07-23] MEDS: CLINDAMYCIN 900 MG in DEXTROSE 5% IN WATER 50 ML IVPB SCH ×6 (01:30→16:03)
[2022-07-23 05:57] LABS: African American GFR (CKD) >90 (>60 ml/min/1.73 sqM); Non-African American GFR(CKD) 83 (>60 ml/min/1.73 sqM)
[2022-07-23] MEDS: HYDROcodone/APAP 5-325MG 1 EACH TAB PO PRN ×2 (06:14→21:02)
[2022-07-23] MEDS: ENOXAPARIN 40 MG/0.4 ML SYRINGE SQ SCH (08:28)
[2022-07-23] MEDS: amLODIPine 10 MG TAB PO SCH (08:28)
[2022-07-23] MEDS: lisinopriL 20 MG TAB PO SCH (08:28)
[2022-07-23] MEDS: FUROSEMIDE 40 MG TAB PO SCH (08:28)
[2022-07-23] MEDS: DOCUSATE 100 MG CAP PO SCH ×2 (08:29→19:48)
--- NOTE | 2022-07-23 09:43 | P.PN ---
Subjective Progress Note Date: 07/23/22 Principal diagnosis: -Cellulitis LLE -Lymphedema Patient was seen at bedside this morning lying in semirecumbent position with left lower extremity propped up with several pillows. Patient says that he feels that his left lower extremity swelling and redness has decreased since yesterday. Patient says he was walking around the room several times yesterday. Patient says his left lower extremity is tender to the touch, but not as bad as it was. Patient does have good movement in his ankle and foot. Patient denies chest pain, fever, shortness of breath, nausea, and, change in vision, loss of bowel/bladder control. Objective - Vital Signs Vital signs: Vital Signs Temp 98.8 F 07/23/22 07:55 Pulse 100 07/23/22 07:55 Resp 18 07/23/22 07:55 BP 132/76 07/23/22 07:55 Pulse Ox 98 07/23/22 07:55 FiO2 Intake & Output 07/22/22 07/23/22 07/23/22 18:59 06:59 18:59 Intake Total 480 1000 240 Output Total 350 775 Balance 130 225 240 Intake: Intake, IV Titration 500 Amount Vancomycin 2,500 mg In 500 Sodium Chloride 0.9% 500 ml 500 ml @ 167 mls/hr IVPB Q12HR [facility] Rx#: [id number] Oral 480 500 240 Output: Urine 350 775 Other: Voiding Method Toilet Toilet Urinal Urinal # Voids 2 1 # Bowel Movements 1 - Exam Negative for any open fractures. Left lower extremity presents with blistering and edema. Left lower extremity is erythematous, but improving. 2+ edema on exam of the left lower extremity. moderate TTP in LLE in left calf. Comp artments are somewhat compressible. Sensation is equal, symmetric, by intact throughout the upper and lower extremities. Dorsalis pedis pulses are present bilaterally. Capillary refill is under 3 seconds in digits of upper and lower extremities. Nontender to palpation throughout rest exam. Patient has good range of motion bilateral lower and upper extremities on exam. Motor exam 4+/5 in left lower extremity. 5/5 in all other major motor groups. Negative Homans bilaterally. - Labs CBC & Chem 7: 07/22/22 05:02 07/23/22 05:35 Labs: Abnormal Lab Results - Last 24 Hours (Table) 07/22/22 Range/Units 05:02 Plt Count Comment INCREASED A Metamyelocytes % 1 H (0-0) % Neutrophils # (Manual) 15.58 H (2.00-8.90) X 10*3/uL Monocytes # (Manual) 2.56 H (0.20-1.00) X 10*3/uL Assessment and Plan Assessment: Cellulitis LLE -Lymphededma - Rule out compartment syndrome Plan: 1. Cellulitis LLE; Lymphededma; r/o compartment syndrome - [place] compartment pressure Kit used and compartment pressures were obtained from the left lower extremity in the anterior compartment- 20 mm Hg and posterior compartment 17 mm Hg, which are both within normal range. Patient still does have 2+ edema in the left lower extremity and moderate TTP along calf in LLE. Edema nd erythema are imporving to LLE. the calf does seem somewhat compressible on exam. At this time we are not recommending any emergency/urgent orthopedic surgical intervent ion. We are recommending for the patient to elevate left lower extremity at a 45 angle delayed help with some of the swelling. From an orthopedic standpoint patient is stable for discharge home. At this time orthopedics is signing off. Please do not hesitate to contact us for any further questions. Patient may follow-up with Dr. Brantley in office in 2 weeks. 2. Appreciate medical management 3. Pain management - Tylenol; [place]; Flexeril 4. DVT prophylaxis - Lovenox 5. GI recs 6. PT/OT - WBAT 7. Appreciate consult Time with Patient: Less than 30
[2022-07-23] MEDS: VANCOMYCIN 2,500 MG in SODIUM CHLORIDE 0.9% 500 ML 500 ML IVPB SCH ×2 (09:45→21:00)
[2022-07-23] MEDS: IBUPROFEN 800 MG TAB PO PRN (09:50)
[2022-07-23] MEDS: SODIUM CHLORIDE 0.9% 1,000 ML IV SCH (16:06)
[2022-07-24] MEDS: CLINDAMYCIN 900 MG in DEXTROSE 5% IN WATER 50 ML IVPB SCH ×8 (00:09→23:56)
--- NOTE | 2022-07-24 02:18 | P.PN ---
Subjective Progress Note Date: 07/22/22 Principal diagnosis: Left lower extremity cellulitis 07/20/2022 maintained on clindamycin and vancomycin as per infectious disease. Creatinine 1.2. T-max 99.5, WBC 23.2. Mild tachycardia, maintaining O2 sats in the 90s on room air. Oral diuretics increased yesterday with left lower extremity edema about the same. Reports pain of the affected site. 07/21/22 increased left calf pain. Venous Doppler of left lower extremity repeated, limited study, reporting negative for acute DVT-unable to adequately visualize the deep femoral vein or upper calf veins .Vascular consulted regarding potential compartment syndrome. Complains of Jorge wrap tightness, which has been currently removed this morning. Continues on clindamycin and vancomycin . Renal function stable.T-max 99.8, WBC 22.12. 07/22/2022 Patient states that his left leg swelling and redness worsened after Jorge wrap. Also blisters on the medial side of the leg. No complaints of fever or chills. Pain is fairly controlled. Vascular surgery and ID is on board. Patient is being current on vancomycin and clindamycin. Laboratory data showed WBC 19.7 hemoglobin 9.8 and platelets 584 BUN 13.4 and creatinine 1.3. Current medications reviewed. Objective - Vital Signs Vital signs: Vital Signs Temp 99.4 F 07/22/22 13:55 Pulse 117 H 07/22/22 19:16 Resp 18 07/22/22 19:16 BP 132/79 07/22/22 13:55 Pulse Ox 95 07/22/22 13:55 FiO2 Intake & Output 07/22/22 07/22/22 07/23/22 06:59 18:59 06:59 Intake Total 480 Output Total 350 Balance 130 Intake: Oral 480 Output: Urine 350 Other: Voiding Method Toilet Toilet Urinal Urinal # Voids 2 2 - Exam - Exam Gen: morbidly obese, NAD CV: RRR, no murmur. 2+ edema BLE Lungs: Normal effort, clear throughout Skin: Left thigh redness resolved.Decreased LLE erythema, induration distal, no excoriation or abscess. Positive DP pulse. - Labs CBC & Chem 7: 07/22/22 05:02 07/23/22 05:35 Labs: Abnormal Lab Results - Last 24 Hours (Table) 07/22/22 07/22/22 Range/Units 05:02 05:02 WBC 19.72 H (4.50-10.00) X 10*3/uL RBC 3.49 L (4.40-5.60) X 10*6/uL Hgb 9.8 L (13.0-17.0) g/dL Hct 31.3 L (39.6-50.0) % MCHC 31.3 L (32.0-37.0) g/dL RDW 16.6 H (11.5-14.5) % Plt Count 584 H (140-440) X 10*3/uL Plt Count Comment INCREASED A MPV 9.4 L (9.5-12.2) fL Metamyelocytes % 1 H (0-0) % Neutrophils # (Manual) 15.58 H (2.00-8.90) X 10*3/uL Monocytes # (Manual) 2.56 H (0.20-1.00) X 10*3/uL Anion Gap 8.30 L (10.00-18.00) mmol/L BUN/Creatinine Ratio 10.38 L (12.00-20.00) Ratio Calcium 8.1 L (8.7-10.3) mg/dL Assessment and Plan Assessment: Left leg cellulitis Morbid obesity, BMI 61.7 Leukocytosis Plan: Continue on current medication regime ,monitoring and symptomatic treatment. Maintain Antibiotics as per infectious disease. . CT of the lower extremity was ordered due to significant swelling. Close monitoring of renal function, electrolytes with repeat labs ordered for a.m. potential CT of lower extremity as per ID being considered. Pain management. Time with Patient: Greater than 30
--- NOTE | 2022-07-24 02:20 | P.PN ---
Subjective Progress Note Date: 07/23/22 Principal diagnosis: Left lower extremity cellulitis 07/20/2022 maintained on clindamycin and vancomycin as per infectious disease. Creatinine 1.2. T-max 99.5, WBC 23.2. Mild tachycardia, maintaining O2 sats in the 90s on room air. Oral diuretics increased yesterday with left lower extremity edema about the same. Reports pain of the affected site. 07/21/22 increased left calf pain. Venous Doppler of left lower extremity repeated, limited study, reporting negative for acute DVT-unable to adequately visualize the deep femoral vein or upper calf veins .Vascular consulted regarding potential compartment syndrome. Complains of Jorge wrap tightness, which has been currently removed this morning. Continues on clindamycin and vancomycin . Renal function stable.T-max 99.8, WBC 22.12. 07/22/2022 Patient states that his left leg swelling and redness worsened after Jorge wrap. Also blisters on the medial side of the leg. No complaints of fever or chills. Pain is fairly controlled. Vascular surgery and ID is on board. Patient is being current on vancomycin and clindamycin. Laboratory data showed WBC 19.7 hemoglobin 9.8 and platelets 584 BUN 13.4 and creatinine 1.3. 07/23/2022 Patient is currently resting in bed. Awake alert and oriented x3. Left lower extremity swelling and redness improved compared to yesterday. Patient is able to move his leg better and extending it well. No fever no chills. No nausea vomiting abdominal pain or diarrhea. No cough or sputum production. CT of the lower extremity Showed showed diffuse subcutaneous edema of the entire lower leg. No evidence of abscess. Patient is being continued antibiotics clindamycin and vancomycin. Pain is controlled with [place]. Also on Flexeril and Motrin. Current medications reviewed. Objective - Vital Signs Vital signs: Vital Signs Temp 98.4 F 07/23/22 13:33 Pulse 95 07/23/22 13:33 Resp 18 07/23/22 13:33 BP 110/71 07/23/22 13:33 Pulse Ox 96 07/23/22 13:33 FiO2 Intake & Output 07/23/22 07/23/22 07/24/22 06:59 18:59 06:59 Intake Total 1000 480 Output Total 775 Balance 225 480 Intake: Intake, IV Titration 500 Amount Vancomycin 2,500 mg In 500 Sodium Chloride 0.9% 500 ml 500 ml @ 167 mls/hr IVPB Q12HR [facility] Rx#: [id number] Oral 500 480 Output: Urine 775 Other: Voiding Method Toilet Toilet Urinal Urinal # Voids 2 # Bowel Movements 1 - Exam - Exam Gen: morbidly obese, NAD CV: RRR, no murmur. 2+ edema BLE Lungs: Normal effort, clear throughout Skin: Left thigh redness resolved.Decreased LLE erythema, induration distal, no excoriation or abscess. Positive DP pulse. - Labs CBC & Chem 7: 07/22/22 05:02 07/23/22 05:35 Assessment and Plan Assessment: Left leg cellulitis Morbid obesity, BMI 61.7 Leukocytosis Plan: Continue on current medication regime ,monitoring and symptomatic treatment. Maintain Antibiotics as per infectious disease. . CT of the lower extremity Showed showed diffuse subcutaneous edema of the entire lower leg. No evidence of abscess. Patient is being continued antibiotics clindamycin and vancomycin. Pain is controlled with [place]. Also on Flexeril and Motrin.. Close monitoring of renal function, electrolytes with repeat labs ordered for a.m. Pain management. Time with Patient: Greater than 30
[2022-07-24] MEDS: HYDROcodone/APAP 5-325MG 1 EACH TAB PO PRN ×3 (07:27→21:00)
[2022-07-24] MEDS: lisinopriL 20 MG TAB PO SCH (07:27)
[2022-07-24] MEDS: FUROSEMIDE 40 MG TAB PO SCH (07:27)
[2022-07-24] MEDS: amLODIPine 10 MG TAB PO SCH (07:27)
[2022-07-24] MEDS: ENOXAPARIN 40 MG/0.4 ML SYRINGE SQ SCH (07:28)
[2022-07-24] MEDS: DOCUSATE 100 MG CAP PO SCH ×2 (07:29→20:54)
[2022-07-24] MEDS ORDERED: VANCOMYCIN TROUGH DUE 1 EACH MISC MISCELLANE ONE (08:00)
[2022-07-24] MEDS: VANCOMYCIN 2,500 MG in SODIUM CHLORIDE 0.9% 500 ML 500 ML IVPB SCH ×2 (09:00→20:54)
[2022-07-24 10:33] LABS: Basophils # (A) 0.09 X 10*3/uL (0.00-0.10); Basophils % (A) 0.6 %; Eosinophils # (A) 0.17 X 10*3/uL (0.04-0.35); Eosinophils % (A) 1.2 %; HGB 9.7 g/dL (13.0-17.0); Immature Grans, Automated 3.8 %; Lymphocytes % (A) 12.5 %; MCH 27.8 pg (27.0-32.0); MCHC 31.3 g/dL (32.0-37.0); MCV 88.8 fL (80.0-97.0); Mean Platelet Volume 9.5 fL (9.5-12.2); Monocytes # (A) 1.39 X 10*3/uL (0.20-1.00); Monocytes % (A) 9.7 %; NRBC Per 100 WBC 0 /100 WBCS (0.0-0.0); Neutrophils # (A) 10.38 X 10*3/uL (1.80-7.70); Neutrophils % (A) 72.2 %; Platelet Count 584 X 10*3/uL (140-440); RBC 3.49 X 10*6/uL (4.40-5.60); RDW 16.3 % (11.5-14.5); WBC 14.38 X 10*3/uL (4.50-10.00)
[2022-07-24 10:49] LABS: African American GFR (CKD) 93.5 (60.0-200.0); Anion Gap 9.9 mmol/L (10.00-18.00); BUN/Creat Ratio 8.33 Ratio (12.00-20.00); C Reactive Protein 18.3 mg/dL (0.00-0.80); Carbon Dioxide 24.1 mmol/L (20.0-27.5); Non-African American GFR(CKD) 80.7 (60.0-200.0); Potassium 4.4 mmol/L (3.5-5.5)
--- NOTE | 2022-07-24 11:51 | P.PN ---
Subjective Progress Note Date: 07/23/22 Principal diagnosis: Left lower extremity cellulitis Patient is a 32-year-old male morbidly obese presenting to the hospital with extensive swelling of the left lower extremity in this patient diagnosed with extensive left dorsum cellulitis the patient to have underlying cephalexin ALLERGY. On today's evaluation that is 07/23/2022, the patient remains to be afebrile , the patient pain and redness of the left lower extremity has slightly decreased in intensity, patient did have some serous drainage, the patient denies having chest pain shortness of cough no abdominal pain no diarrhea Objective - Vital Signs Vital signs: Vital Signs Temp 98.4 F 07/23/22 13:33 Pulse 95 07/23/22 13:33 Resp 18 07/23/22 13:33 BP 110/71 07/23/22 13:33 Pulse Ox 96 07/23/22 13:33 FiO2 Intake & Output 07/22/22 07/23/22 07/23/22 18:59 06:59 18:59 Intake Total 480 1000 240 Output Total 350 775 Balance 130 225 240 Intake: Intake, IV Titration 500 Amount Vancomycin 2,500 mg In 500 Sodium Chloride 0.9% 500 ml 500 ml @ 167 mls/hr IVPB Q12HR [facility] Rx#: [id number] Oral 480 500 240 Output: Urine 350 775 Other: Voiding Method Toilet Toilet Urinal Urinal # Voids 2 1 # Bowel Movements 1 - Exam GENERAL DESCRIPTION: Middle-age male lying in bed in no distress RESPIRATORY SYSTEM: Unlabored breathing , decreased breath sounds at bases HEART: S1 S2 regular rate and rhythm , ABDOMEN: Soft , no tenderness EXTREMITIES: Diffuse swelling redness of left lower extremity , slightly decreased in intensity - Labs CBC & Chem 7: 07/24/22 07:48 07/24/22 07:48 Assessment and Plan (1) Cellulitis of left leg Current Visit: Yes Status: Acute Code(s): L03.116 - CELLULITIS OF LEFT LOWER LIMB SNOMED Code(s): 106611455 Plan: 1patient is in the hospital with extensive left lower extremity swelling and redness has been diagnosed with a cellulitis patient unfortunately to have cephalexin ALLERGY, patient to continue with CHRISTEN Wraps to keep the swelling down 2-patient did have CT of the left lower extremity that was negative for any abscess 3 patient seemed to showing some clinical improvement and will continue with the vancomycin and clindamycin and monitor clinical course closely Time with Patient: Less than 30
--- NOTE | 2022-07-24 15:33 | P.PN ---
Subjective Progress Note Date: 07/24/22 Left lower extremity edema improving. T-max 99.1. WBC increased to 20.3. Blood cultures reporting no growth. Maintained on IV antibiotics as per infectious disease. Denies chest pain, palpitations or shortness of breath. Maintaining O2 sats in the high 90s on room air. 07/20/2022 maintained on clindamycin and vancomycin as per infectious disease. Creatinine 1.2. T-max 99.5, WBC 23.2. Mild tachycardia, maintaining O2 sats in the 90s on room air. Oral diuretics increased yesterday with left lower extremity edema about the same. Reports pain of the affected site. 07/21/22 increased left calf pain. Venous Doppler of left lower extremity repeated, limited study, reporting negative for acute DVT-unable to adequately visualize the deep femoral vein or upper calf veins .Vascular consulted re garding potential compartment syndrome. Complains of Jorge wrap tightness, which has been currently removed this morning. Continues on clindamycin and vancomycin . Renal function stable.T-max 99.8, WBC 22.12. 07/24/2022 maintained on vancomycin and clindamycin with significant improvement in left lower extremity. Renal function stable. Decreased pain, softer, decreased redness, decreased edema. CT of the lower extremity reporting diffuse subcutaneous edema of the entire lower leg, no evidence of abscess. T-max 99.2, WBC decreased to 14.38. Objective - Vital Signs Vital signs: Vital Signs Temp 99.3 F 07/24/22 14:00 Pulse 97 07/24/22 14:00 Resp 20 07/24/22 14:00 BP 147/77 07/24/22 14:00 Pulse Ox 100 07/24/22 14:00 FiO2 Intake & Output 07/23/22 07/24/22 07/24/22 18:59 06:59 18:59 Intake Total 480 550 940 Balance 480 550 940 Intake: Intake, IV Titration 550 Amount Clindamycin 900 mg In 50 Dextrose 5% in Water 50 ml @ 50 mls/hr IVPB Q8HR STEPHEN Rx#:[id number] Vancomycin 2,500 mg In 500 Sodium Chloride 0.9% 500 ml 500 ml @ 167 mls/hr IVPB Q12HR STEPHEN Rx#: [id number] Oral 480 940 Other: Voiding Method Toilet Toilet Toilet Urinal Urinal Urinal # Voids 2 # Bowel Movements 1 - Exam - Exam Gen: morbidly obese, NAD CV: RRR, no murmur. 2+ edema BLE Lungs: Normal effort, clear throughout Skin: Left thigh redness resolved.Decreased LLE erythema, softer, decreased pain to palpation, no excoriation or abscess. Positive DP pulse. Microbiology 07/14/22 14:50 Blood Blood Culture - Final No Growth after 144 hours - Labs CBC & Chem 7: 07/24/22 07:48 07/24/22 07:48 Labs: Abnormal Lab Results - Last 24 Hours (Table) 07/24/22 07/24/22 Range/Units 07:48 07:48 WBC 14.38 H (4.50-10.00) X 10*3/uL RBC 3.49 L (4.40-5.60) X 10*6/uL Hgb 9.7 L (13.0-17.0) g/dL Hct 31.0 L (39.6-50.0) % MCHC 31.3 L (32.0-37.0) g/dL RDW 16.3 H (11.5-14.5) % Plt Count 584 H (140-440) X 10*3/uL Immature Gran # 0.55 H (0.00-0.04) X 10*3/uL Neutrophils # 10.38 H (1.80-7.70) X 10*3/uL Monocytes # 1.39 H (0.20-1.00) X 10*3/uL Anion Gap 9.90 L (10.00-18.00) mmol/L BUN/Creatinine Ratio 8.33 L (12.00-20.00) Ratio Calcium 8.0 L (8.7-10.3) mg/dL C-Reactive Protein 18.30 H (0.00-0.80) mg/dL Assessment and Plan Assessment: Left leg cellulitis. CT reports no abscess. Morbid obesity, BMI 61.7 Leukocytosis Plan: Continue on current medication regime ,monitoring and symptomatic treatment. Maintain Antibiotics as per infectious disease. Close monitoring of renal function, electrolytes with repeat labs ordered for a.m. Pain management. The impression and plan of care has been dictated as directed. : I performed a history and examination of this patient, discussed the same with the dictator. I agree with the dictator's note ,documented as a scribe. Any additional findings or plans will be noted.
[2022-07-24] MEDS: SODIUM CHLORIDE 0.9% 1,000 ML IV SCH (16:26)
[2022-07-24] MEDS: IBUPROFEN 800 MG TAB PO PRN (16:28)
[2022-07-25] MEDS: IBUPROFEN 800 MG TAB PO PRN (01:55)
[2022-07-25] MEDS: HYDROcodone/APAP 5-325MG 1 EACH TAB PO PRN ×3 (07:44→21:56)
[2022-07-25] MEDS: CLINDAMYCIN 900 MG in DEXTROSE 5% IN WATER 50 ML IVPB SCH ×4 (07:45→16:03)
[2022-07-25] MEDS: ENOXAPARIN 40 MG/0.4 ML SYRINGE SQ SCH (10:54)
[2022-07-25] MEDS: FUROSEMIDE 40 MG TAB PO SCH (10:54)
[2022-07-25] MEDS: lisinopriL 20 MG TAB PO SCH (10:55)
[2022-07-25] MEDS: DOCUSATE 100 MG CAP PO SCH ×2 (10:57→21:00)
[2022-07-25] MEDS: amLODIPine 10 MG TAB PO SCH (11:08)
[2022-07-25] MEDS: VANCOMYCIN 2,500 MG in SODIUM CHLORIDE 0.9% 500 ML 500 ML IVPB SCH ×2 (11:08→21:00)
[2022-07-25] MEDS: ACETAMINOPHEN TAB 325 MG TAB PO PRN (13:01)
[2022-07-25 13:06] VITALS: BMI 61.7
--- NOTE | 2022-07-25 14:17 | P.PN ---
Subjective Progress Note Date: 07/25/22 Left lower extremity edema improving. T-max 99.1. WBC increased to 20.3. Blood cultures reporting no growth. Maintained on IV antibiotics as per infectious disease. Denies chest pain, palpitations or shortness of breath. Maintaining O2 sats in the high 90s on room air. 07/20/2022 maintained on clindamycin and vancomycin as per infectious disease. Creatinine 1.2. T-max 99.5, WBC 23.2. Mild tachycardia, maintaining O2 sats in the 90s on room air. Oral diuretics increased yesterday with left lower extremity edema about the same. Reports pain of the affected site. 07/21/22 increased left calf pain. Venous Doppler of left lower extremity repeated, limited study, reporting negative for acute DVT-unable to adequately visualize the deep femoral vein or upper calf veins .Vascular consulted re garding potential compartment syndrome. Complains of Jorge wrap tightness, which has been currently removed this morning. Continues on clindamycin and vancomycin . Renal function stable.T-max 99.8, WBC 22.12. 07/24/2022 maintained on vancomycin and clindamycin with significant improvement in left lower extremity. Renal function stable. Decreased pain, softer, decreased redness, decreased edema. CT of the lower extremity reporting diffuse subcutaneous edema of the entire lower leg, no evidence of abscess. T-max 99.2, WBC decreased to 14.38. 07/25/2022 continues on vancomycin and clindamycin with ongoing improvement. Afebrile, renal function stable. Decreased edema, softer, less tender- patient reports easier to ambulate. Denies chest pain, palpitations or shortness of breath. Maintaining O2 sats in the high 90s on room air. Denies lightheadedness, dizziness or focal deficits. Objective - Vital Signs Vital signs: Vital Signs Temp 98.3 F 07/25/22 11:44 Pulse 102 H 07/25/22 11:44 Resp 15 07/25/22 11:44 BP 156/83 07/25/22 11:44 Pulse Ox 98 07/24/22 19:36 FiO2 Intake & Output 07/24/22 07/25/22 07/25/22 18:59 06:59 18:59 Intake Total 940 600 Balance 940 600 Weight 195.045 kg Intake: Oral 940 600 Other: Voiding Method Toilet Toilet Toilet Urinal Urinal Urinal # Voids 150 2 - Exam - Exam Gen: morbidly obese, NAD CV: RRR, no murmur. 2+ edema BLE Lungs: Normal effort, clear throughout Skin: Left thigh redness resolved.Decreased LLE erythema, softer, decreased pain to palpation,multiple intact blisters, no excoriation or abscess. Positive DP pulse. - Labs CBC & Chem 7: 07/24/22 07:48 07/24/22 07:48 Assessment and Plan Assessment: Left leg cellulitis. CT reports no abscess. Morbid obesity, BMI 61.7 Leukocytosis Plan: Continue on current medication regime ,monitoring and symptomatic treatment. Antibiotics as per infectious disease. Close monitoring of renal function, electrolytes with repeat labs ordered for a.m. continue increasing ambulation as tolerated. The impression and plan of care has been dictated as directed. : I performed a history and examination of this patient, discussed the same with the dictator. I agree with the dictator's note ,documented as a scribe. Any a dditional findings or plans will be noted.
[2022-07-25] MEDS: SODIUM CHLORIDE 0.9% 1,000 ML IV SCH (17:40)
--- NOTE | 2022-07-25 23:01 | P.PN ---
Subjective Progress Note Date: 07/24/22 Principal diagnosis: Left lower extremity cellulitis Patient is a 32-year-old male morbidly obese presenting to the hospital with extensive swelling of the left lower extremity in this patient diagnosed with extensive left dorsum cellulitis the patient to have underlying cephalexin ALLERGY. On today's evaluation that is 07/24/2022, the patient continues to be afebrile , the patient pain and redness of the left lower extremity has decreased in intensity, patient did have some serous drainage, the patient denies having chest pain shortness of cough no abdominal pain no diarrhea with antibiotic therapy Objective - Vital Signs Vital signs: Vital Signs Temp 99.2 F 07/24/22 07:38 Pulse 102 H 07/24/22 07:38 Resp 19 07/24/22 07:38 BP 155/91 07/24/22 07:38 Pulse Ox 94 L 07/24/22 07:38 FiO2 Intake & Output 07/23/22 07/24/22 07/24/22 18:59 06:59 18:59 Intake Total 480 550 718 Balance 480 550 718 Intake: Intake, IV Titration 550 Amount Clindamycin 900 mg In 50 Dextrose 5% in Water 50 ml @ 50 mls/hr IVPB Q8HR [facility] Rx#:[id number] Vancomycin 2,500 mg In 500 Sodium Chloride 0.9% 500 ml 500 ml @ 167 mls/hr IVPB Q12HR [facility] Rx#: [id number] Oral 480 718 Other: Voiding Method Toilet Toilet Toilet Urinal Urinal Urinal # Voids 2 # Bowel Movements 1 - Exam GENERAL DESCRIPTION: Middle-age male lying in bed in no distress RESPIRATORY SYSTEM: Unlabored breathing , decreased breath sounds at bases HEART: S1 S2 regular rate and rhythm , ABDOMEN: Soft , no tenderness EXTREMITIES: Diffuse swelling redness of left lower extremity , slightly decreased in intensity - Labs CBC & Chem 7: 07/24/22 07:48 07/24/22 07:48 Labs: Abnormal Lab Results - Last 24 Hours (Table) 07/24/22 07/24/22 Range/Units 07:48 07:48 WBC 14.38 H (4.50-10.00) X 10*3/uL RBC 3.49 L (4.40-5.60) X 10*6/uL Hgb 9.7 L (13.0-17.0) g/dL Hct 31.0 L (39.6-50.0) % MCHC 31.3 L (32.0-37.0) g/dL RDW 16.3 H (11.5-14.5) % Plt Count 584 H (140-440) X 10*3/uL Immature Gran # 0.55 H (0.00-0.04) X 10*3/uL Neutrophils # 10.38 H (1.80-7.70) X 10*3/uL Monocytes # 1.39 H (0.20-1.00) X 10*3/uL Anion Gap 9.90 L (10.00-18.00) mmol/L BUN/Creatinine Ratio 8.33 L (12.00-20.00) Ratio Calcium 8.0 L (8.7-10.3) mg/dL C-Reactive Protein 18.30 H (0.00-0.80) mg/dL Assessment and Plan (1) Cellulitis of left leg Current Visit: Yes Status: Acute Code(s): L03.116 - CELLULITIS OF LEFT LOWER LIMB SNOMED Code(s): 049219300 Plan: 1patient is in the hospital with extensive left lower extremity swelling and redness has been diagnosed with a cellulitis patient unfortunately to have cephalexin ALLERGY, patient to continue with CHRISTEN Wraps to keep the swelling down 2-patient did have CT of the left lower extremity that was negative for any abs cess 3 patient has shown some clinical improvement and will continue with the vancomycin and clindamycin and advised compression to keep some of the swelling down Time with Patient: Less than 30
--- NOTE | 2022-07-25 23:03 | P.PN ---
Subjective Progress Note Date: 07/25/22 Principal diagnosis: Left lower extremity cellulitis Patient is a 32-year-old male morbidly obese presenting to the hospital with extensive swelling of the left lower extremity in this patient diagnosed with extensive left dorsum cellulitis the patient to have underlying cephalexin ALLERGY. On today's evaluation that is 07/25/2022, the patient denies any fever or chi lls, the patient is breathing comfortably on nasal cannula oxygen the patient denies having chest pain shortness of cough no abdominal pain no diarrhea with antibiotic therapy, the patient left lower extremity swelling redness slightly decreased Objective - Vital Signs Vital signs: Vital Signs Temp 98.3 F 07/25/22 11:44 Pulse 102 H 07/25/22 11:44 Resp 15 07/25/22 11:44 BP 156/83 07/25/22 11:44 Pulse Ox 98 07/24/22 19:36 FiO2 Intake & Output 07/24/22 07/25/22 07/25/22 18:59 06:59 18:59 Intake Total 940 Balance 940 Intake: Oral 940 Other: Voiding Method Toilet Toilet Toilet Urinal Urinal Urinal # Voids 150 2 - Exam GENERAL DESCRIPTION: Middle-age male lying in bed in no distress RESPIRATORY SYSTEM: Unlabored breathing , decreased breath sounds at bases HEART: S1 S2 regular rate and rhythm , ABDOMEN: Soft , no tenderness EXTREMITIES: Diffuse swelling redness of left lower extremity , slightly decreased in intensity - Labs CBC & Chem 7: 07/24/22 07:48 07/24/22 07:48 Assessment and Plan (1) Cellulitis of left leg Current Visit: Yes Status: Acute Code(s): L03.116 - CELLULITIS OF LEFT LOWER LIMB SNOMED Code(s): 512765596 Plan: 1patient is in the hospital with extensive left lower extremity swelling and redness has been diagnosed with a cellulitis patient unfortunately to have cephalexin ALLERGY, patient to continue with CHRISTEN Wraps to keep the swelling down 2-patient did have CT of the left lower extremity that was negative for any abscess 3 patient has shown some clinical improvement and white count was down to 14,000 yesterday, patient will continue with the vancomycin and clindamycin will repeat a CBC tomorrow if white count has normalized may be able to finish therapy with oral Augmentin Time with Patient: Less than 30
[2022-07-26] MEDS: CLINDAMYCIN 900 MG in DEXTROSE 5% IN WATER 50 ML IVPB SCH ×6 (00:21→17:40)
[2022-07-26 07:13] LABS: African American GFR (CKD) >90 (>60 ml/min/1.73 sqM); Anion Gap 8 mmol/L; Blood Urea Nitrogen 11 mg/dL (9-20); Calcium 7.9 mg/dL (8.4-10.2); Carbon Dioxide 25 mmol/L (22-30); Chloride 102 mmol/L (98-107); Glucose 105 mg/dL (74-99); Non-African American GFR(CKD) 82 (>60 ml/min/1.73 sqM); Potassium 4.6 mmol/L (3.5-5.1); Sodium 135 mmol/L (137-145)
[2022-07-26] MEDS: HYDROcodone/APAP 5-325MG 1 EACH TAB PO PRN ×2 (08:09→19:31)
[2022-07-26] MEDS: lisinopriL 20 MG TAB PO SCH (08:10)
[2022-07-26] MEDS: DOCUSATE 100 MG CAP PO SCH ×2 (08:10→20:08)
[2022-07-26] MEDS: FUROSEMIDE 40 MG TAB PO SCH (08:10)
[2022-07-26] MEDS: ENOXAPARIN 40 MG/0.4 ML SYRINGE SQ SCH (08:10)
[2022-07-26] MEDS: IBUPROFEN 800 MG TAB PO PRN (08:15)
[2022-07-26] MEDS: amLODIPine 10 MG TAB PO SCH (08:16)
[2022-07-26] MEDS: VANCOMYCIN 2,500 MG in SODIUM CHLORIDE 0.9% 500 ML 500 ML IVPB SCH ×2 (10:02→20:33)
[2022-07-26 10:38] LABS: Basophils % (A) 0.7 %; Eosinophils # (A) 0.19 X 10*3/uL (0.04-0.35); Eosinophils % (A) 1.4 %; HCT 31.9 % (39.6-50.0); HGB 9.8 g/dL (13.0-17.0); Lymphocytes # (A) 1.79 X 10*3/uL (0.90-5.00); Lymphocytes % (A) 13.1 %; MCH 27.3 pg (27.0-32.0); MCHC 30.7 g/dL (32.0-37.0); MCV 88.9 fL (80.0-97.0); Mean Platelet Volume 9.5 fL (9.5-12.2); Monocytes # (A) 1.47 X 10*3/uL (0.20-1.00); Monocytes % (A) 10.7 %; NRBC Per 100 WBC 0 /100 WBCS (0.0-0.0); Neutrophils # (A) 9.88 X 10*3/uL (1.80-7.70); Neutrophils % (A) 72.1 %; Platelet Count 572 X 10*3/uL (140-440); RBC 3.59 X 10*6/uL (4.40-5.60); RDW 15.9 % (11.5-14.5); WBC 13.71 X 10*3/uL (4.50-10.00)
--- NOTE | 2022-07-26 14:08 | P.PN ---
Subjective Progress Note Date: 07/26/22 Left lower extremity edema improving. T-max 99.1. WBC increased to 20.3. Blood cultures reporting no growth. Maintained on IV antibiotics as per infectious disease. Denies chest pain, palpitations or shortness of breath. Maintaining O2 sats in the high 90s on room air. 07/20/2022 maintained on clindamycin and vancomycin as per infectious disease. Creatinine 1.2. T-max 99.5, WBC 23.2. Mild tachycardia, maintaining O2 sats in the 90s on room air. Oral diuretics increased yesterday with left lower extremity edema about the same. Reports pain of the affected site. 07/21/22 increased left calf pain. Venous Doppler of left lower extremity repeated, limited study, reporting negative for acute DVT-unable to adequately visualize the deep femoral vein or upper calf veins .Vascular consulted re garding potential compartment syndrome. Complains of Jorge wrap tightness, which has been currently removed this morning. Continues on clindamycin and vancomycin . Renal function stable.T-max 99.8, WBC 22.12. 07/24/2022 maintained on vancomycin and clindamycin with significant improvement in left lower extremity. Renal function stable. Decreased pain, softer, decreased redness, decreased edema. CT of the lower extremity reporting diffuse subcutaneous edema of the entire lower leg, no evidence of abscess. T-max 99.2, WBC decreased to 14.38. 07/25/2022 continues on vancomycin and clindamycin with ongoing improvement. Afebrile, renal function stable. Decreased edema, softer, less tender- patient reports easier to ambulate. Denies chest pain, palpitations or shortness of breath. Maintaining O2 sats in the high 90s on room air. Denies lightheadedness, dizziness or focal deficits. 07/26/2022 T-max 99.3, WBC trending down, 13.7. Softer, decreased redness, decreased tenderness with [place]/Motrin. Creatinine 1.18. Denies chest pain, palpitations or shortness of breath. Maintaining O2 sats in the mid 90s on room. Objective - Vital Signs Vital signs: Vital Signs Temp 98.7 F 07/26/22 13:00 Pulse 90 07/26/22 13:00 Resp 18 07/26/22 13:00 BP 143/83 07/26/22 13:00 Pulse Ox 95 07/26/22 13:00 FiO2 Intake & Output 07/25/22 07/26/22 07/26/22 18:59 06:59 18:59 Intake Total 600 358 Output Total 400 600 Balance 200 -242 Weight 195.045 kg Intake: Oral 600 358 Output: Urine 400 600 Other: Voiding Method Toilet Toilet Toilet Urinal # Voids 3 - Exam - Exam Gen: morbidly obese, NAD CV: RRR, no murmur. 2+ edema BLE Lungs: Normal effort, clear throughout Skin: Left thigh redness resolved.continued decreased LLE erythema, softer, decreased pain to palpation, intact blisters, no excoriation or abscess. Positive DP pulse. - Labs CBC & Chem 7: 07/26/22 06:47 07/26/22 06:47 Labs: Abnormal Lab Results - Last 24 Hours (Table) 07/26/22 07/26/22 Range/Units 06:47 06:47 WBC 13.71 H (4.50-10.00) X 10*3/uL RBC 3.59 L (4.40-5.60) X 10*6/uL Hgb 9.8 L (13.0-17.0) g/dL Hct 31.9 L (39.6-50.0) % MCHC 30.7 L (32.0-37.0) g/dL RDW 15.9 H (11.5-14.5) % Plt Count 572 H (140-440) X 10*3/uL Immature Gran # 0.28 H (0.00-0.04) X 10*3/uL Neutrophils # 9.88 H (1.80-7.70) X 10*3/uL Monocytes # 1.47 H (0.20-1.00) X 10*3/uL Sodium 135 L (137-145) mmol/L Glucose 105 H (74-99) mg/dL Calcium 7.9 L (8.4-10.2) mg/dL C-Reactive Protein 17.0 H (<1.0) mg/dL Assessment and Plan Assessment: Left leg cellulitis. CT reports no abscess. Morbid obesity, BMI 61.7 Leukocytosis Plan: Continue on current medication regime ,monitoring and symptomatic treatment. Antibiotics as per infectious disease. Close monitoring of renal function, electrolytes with repeat labs ordered for a.m. continue increasing ambulation as tolerated. Discharge planning in progress pending normalization of WBC as per ID. The impression and plan of care has been dictated as directed. : I performed a history and examination of this patient, discussed the same with the dictator. I agree with the dictator's note ,documented as a scribe. Any additional findings or plans will be noted.
[2022-07-26] MEDS: SODIUM CHLORIDE 0.9% 1,000 ML IV SCH (19:10)
[2022-07-27] MEDS: CLINDAMYCIN 900 MG in DEXTROSE 5% IN WATER 50 ML IVPB SCH ×6 (00:20→16:00)
[2022-07-27] MEDS: HYDROcodone/APAP 5-325MG 1 EACH TAB PO PRN ×3 (02:31→15:23)
[2022-07-27 07:35] VITALS: RESP 20
[2022-07-27] MEDS: amLODIPine 10 MG TAB PO SCH (08:38)
[2022-07-27] MEDS: FUROSEMIDE 40 MG TAB PO SCH (08:38)
[2022-07-27] MEDS: ENOXAPARIN 40 MG/0.4 ML SYRINGE SQ SCH (08:38)
[2022-07-27] MEDS: lisinopriL 20 MG TAB PO SCH (08:38)
[2022-07-27] MEDS: DOCUSATE 100 MG CAP PO SCH (08:38)
[2022-07-27] MEDS: IBUPROFEN 800 MG TAB PO PRN (08:54)
[2022-07-27] MEDS: VANCOMYCIN 2,500 MG in SODIUM CHLORIDE 0.9% 500 ML 500 ML IVPB SCH (10:43)
[2022-07-27 11:36] LABS: HCT 32.1 % (39.0-53.0); HGB 9.9 gm/dL (13.0-17.5); Hypochromasia Slight; MCH 27.5 pg (25.0-35.0); MCHC 30.7 g/dL (31.0-37.0); MCV 89.7 fL (80.0-100.0); Platelet Count 638 k/uL (150-450); RBC 3.58 m/uL (4.30-5.90); RDW 14.9 % (11.5-15.5); WBC 11.4 k/uL (3.8-10.6)
--- NOTE | 2022-07-27 12:02 | P.PN ---
Subjective Progress Note Date: 07/27/22 Left lower extremity edema improving. T-max 99.1. WBC increased to 20.3. Blood cultures reporting no growth. Maintained on IV antibiotics as per infectious disease. Denies chest pain, palpitations or shortness of breath. Maintaining O2 sats in the high 90s on room air. 07/20/2022 maintained on clindamycin and vancomycin as per infectious disease. Creatinine 1.2. T-max 99.5, WBC 23.2. Mild tachycardia, maintaining O2 sats in the 90s on room air. Oral diuretics increased yesterday with left lower extremity edema about the same. Reports pain of the affected site. 07/21/22 increased left calf pain. Venous Doppler of left lower extremity repeated, limited study, reporting negative for acute DVT-unable to adequately visualize the deep femoral vein or upper calf veins .Vascular consulted re garding potential compartment syndrome. Complains of Jorge wrap tightness, which has been currently removed this morning. Continues on clindamycin and vancomycin . Renal function stable.T-max 99.8, WBC 22.12. 07/24/2022 maintained on vancomycin and clindamycin with significant improvement in left lower extremity. Renal function stable. Decreased pain, softer, decreased redness, decreased edema. CT of the lower extremity reporting diffuse subcutaneous edema of the entire lower leg, no evidence of abscess. T-max 99.2, WBC decreased to 14.38. 07/25/2022 continues on vancomycin and clindamycin with ongoing improvement. Afebrile, renal function stable. Decreased edema, softer, less tender- patient reports easier to ambulate. Denies chest pain, palpitations or shortness of breath. Maintaining O2 sats in the high 90s on room air. Denies lightheadedness, dizziness or focal deficits. 07/26/2022 T-max 99.3, WBC trending down, 13.7. Softer, decreased redness, decreased tenderness with [place]/Motrin. Creatinine 1.18. Denies chest pain, palpitations or shortness of breath. Maintaining O2 sats in the mid 90s on room. 07/27/2022 maintained on Cleocin, vancomycin .significant clinical improvement. T-max 99.7, WBC continued trending down, 11.4. Denies chest pain, palpitations or shortness of breath. Ambulating, tolerating exertion better. Denies lightheadedness dizziness or focal deficits. Objective - Vital Signs Vital signs: Vital Signs Temp 99.5 F 07/27/22 07:34 Pulse 103 H 07/27/22 07:34 Resp 20 07/27/22 08:38 BP 139/87 07/27/22 07:34 Pulse Ox 96 07/27/22 07:34 FiO2 Intake & Output 07/26/22 07/27/22 07/27/22 18:59 06:59 18:59 Intake Total 358 118 Output Total 600 700 Balance -242 -700 118 Intake: Oral 358 118 Output: Urine 600 700 Other: Voiding Method Toilet Toilet Toilet # Voids 2 - Exam - Exam Gen: morbidly obese, NAD CV: RRR, no murmur. 2+ edema BLE Lungs: Normal effort, clear throughout Skin: Left thigh redness resolved.continued decreased LLE erythema, softer, decreased pain to palpation, mostly intact blisters-a few erupted with serous drainage, no excoriation or abscess. Positive DP pulse. - Labs CBC & Chem 7: 07/27/22 11:20 07/26/22 06:47 Labs: Abnormal Lab Results - Last 24 Hours (Table) 07/27/22 Range/Units 11:20 WBC 11.4 H (3.8-10.6) k/uL RBC 3.58 L (4.30-5.90) m/uL Hgb 9.9 L (13.0-17.5) gm/dL Hct 32.1 L (39.0-53.0) % MCHC 30.7 L (31.0-37.0) g/dL Plt Count 638 H (150-450) k/uL Assessment and Plan Assessment: Left leg cellulitis. CT reports no abscess. Morbid obesity, BMI 61.7 Leukocytosis Plan: Continue on current medication regime ,monitoring and symptomatic treatment. Antibiotics as per infectious disease. Close monitoring of renal function, electrolytes with repeat labs ordered for a.m. Discharge planning in progress pending normalization of WBC as per ID. The impression and plan of care has been dictated as directed. : I performed a history and examination of this patient, discussed the same with the dictator. I agree with the dictator's note ,documented as a scribe. Any additional findings or plans will be noted.
[2022-07-27 13:25] VITALS: BP 149/80; PULSE 94; TEMP 98.7
--- NOTE | 2022-07-28 14:06 | P.DS ---
Providers Date of admission: 07/18/22 09:50 Expected date of discharge: 07/27/22 Attending physician: David Sandoval MD Consults: 07/14/22 16:14 Consult Physician Routine Consulting Provider: Radha Mcgraw Consult Reason/Comments: cellulitis, left leg Do you want consulting provider notified?: Yes 07/21/22 07:38 Consult Physician Urgent Consulting Provider: Hill Brantley Consult Reason/Comments: possible compartment syndrome Do you want consulting provider notified?: Yes Primary care physician: Shelley Pineda Hospital Course: Final Diagnoses: Left leg cellulitis. CT reports no abscess. Morbid obesity, BMI 61.7 Leukocytosis Hospital course:Left lower extremity edema improving. T-max 99.1. WBC increased to 20.3. Blood cultures reporting no growth. Maintained on IV antibiotics as per infectious disease. Denies chest pain, palpitations or shortness of breath. Maintaining O2 sats in the high 90s on room air. 07/20/2022 maintained on clindamycin and vancomycin as per infectious disease. Creatinine 1.2. T-max 99.5, WBC 23.2. Mild tachycardia, maintaining O2 sats in the 90s on room air. Oral diuretics increased yesterday with left lower extrem ity edema about the same. Reports pain of the affected site. 07/21/22 increased left calf pain. Venous Doppler of left lower extremity repeated, limited study, reporting negative for acute DVT-unable to adequately visualize the deep femoral vein or upper calf veins .Vascular consulted regarding potential compartment syndrome. Complains of Jorge wrap tightness, which has been currently removed this morning. Continues on clindamycin and vancomycin . Renal function stable.T-max 99.8, WBC 22.12. 07/24/2022 maintained on vancomycin and clindamycin with significant improvement in left lower extremity. Renal function stable. Decreased pain, softer, decreased redness, decreased edema. CT of the lower extremity reporting diffuse subcutaneous edema of the entire lower leg, no evidence of abscess. T-max 99.2, WBC decreased to 14.38. 07/25/2022 continues on vancomycin and clindamycin with ongoing improvement. Afebrile, renal function stable. Decreased edema, softer, less tender- patient reports easier to ambulate. Denies chest pain, palpitations or shortness of breath. Maintaining O2 sats in the high 90s on room air. Denies lightheadedness, dizziness or focal deficits. 07/26/2022 T-max 99.3, WBC trending down, 13.7. Softer, decreased redness, decreased tenderness with [place]/Motrin. Creatinine 1.18. Denies chest pain, palpitations or shortness of breath. Maintaining O2 sats in the mid 90s on room. 07/27/2022 maintained on Cleocin, vancomycin .significant clinical improvement. T-max 99.7, WBC continued trending down, 11.4. Denies chest pain, palpitations or shortness of breath. Ambulating, tolerating exertion better. Denies lightheadedness dizziness or focal deficits. Cleared by infectious disease for discharge. Patient will be discharged home today in a stable condition with guarded prognosis. The impression and plan of care has been dictated as directed. : I performed a history and examination of this patient, discussed the same with the dictator. I agree with the dictator's note ,documented as a scribe. Any additional findings or plans will be noted. Patient Condition at Discharge: Stable Plan - Discharge Summary Discharge Rx Participant: Yes New Discharge Prescriptions: New Amoxicillin/Potassium Clav [Augmentin Xr 1,000-62.5 Tab] 1 tab PO Q12H #20 tab Acetaminophen Tab [Tylenol] 650 mg PO Q6HR PRN tab PRN Reason: Mild Pain Or Fever > 100.5 Docusate [Colace] 100 mg PO BID cap Continue amLODIPine BESYLATE/BENAZEPRIL [amLODIPine BESYLATE/BENAZEPRIL 10-20 mg] 1 cap PO DAILY Changed Furosemide [Lasix] See Rx Instructions .ROUTE .COMPLEX #0 Discharge Medication List amLODIPine BESYLATE/BENAZEPRIL [amLODIPine BESYLATE/BENAZEPRIL 10-20 mg] 1 cap PO DAILY 07/14/22 [History] Acetaminophen Tab [Tylenol] 650 mg PO Q6HR PRN tab 07/27/22 [Rx] Amoxicillin/Potassium Clav [Augmentin Xr 1,000-62.5 Tab] 1 tab PO Q12H #20 tab 07/27/22 [Rx] Docusate [Colace] 100 mg PO BID cap 07/27/22 [Rx] Furosemide [Lasix] See Rx Instructions .ROUTE .COMPLEX #0 07/27/22 [Rx] Follow up Appointment(s)/Referral(s): David Sandoval MD [STAFF PHYSICIAN] - 07/31/22 3:00 pm ([facility] location) Patient Instructions/Handouts: Cellulitis (GEN) Discharge Disposition: HOME SELF-CARE
== END 2022-07-27 16:07 | disposition home or self-care (01) | DRG 603 ==
LOC: EC 12:41 → 6NMEDSUR 15:54 → OBSVTOIN 07-18 09:50
PROVIDERS: ADMIT Family Medicine; ATTEND Family Medicine
PROC: 4A0F3BE Measurement of Musculoskeletal Pressure, Compartment, Percutaneous Approach (ICD-10-PCS; principal; 2022-07-21)
DX: L03.116 Cellulitis of left lower limb (principal); Z68.44 Body mass index [BMI] 60.0-69.9, adult; Z20.822 Contact with and (suspected) exposure to COVID-19; E66.01 Morbid (severe) obesity due to excess calories; I10 Essential (primary) hypertension; I89.0 Lymphedema, not elsewhere classified; W22.8XXA Striking against or struck by other objects, initial encounter; Y99.0 Civilian activity done for income or pay; Z79.899 Other long term (current) drug therapy; Z88.1 Allergy status to other antibiotic agents
CPT/HCPCS: 36415; 80048; 80053; 80202; 81001; 82565; 83605; 84484; 85025; 85027; 85379; 86140; 87040; 87635; 93005; 96365; 96366; 99285

== ENCOUNTER → 2023-06-13 | Outpatient (CLI) | payer BC ==
--- NOTE | 2023-06-13 20:43 | CT ---
EXAMINATION TYPE: CT abdomen pelvis wo/w con CT DLP: 9110.8 mGycm, Automated exposure control for dose reduction was used. DATE OF EXAM: 06/13/2023 7:38 PM COMPARISON: CT left lower leg 07/22/2022. CLINICAL INDICATION:Male, 33 years old with history of R22.2 LOCALIZED SWELLING, MASS AND LUMP; Possi ble mass near groin area. Pt has a very swollen left leg, pt stated his doctor suspected there to be an issue with his lymph nodes. TECHNIQUE: Multiphase CT of the abdomen and pelvis before and after the uneventful administration of 100 cc of Isovue-300 intravenously. Oral contrast was given..Coronal and sagittal reformats were per formed. FINDINGS: Limited examination due to patient's body habitus. LOWER CHEST: Unremarkable ABDOMEN LIVER: Unremarkable GALLBLADDER AND BILE DUCTS: Unremarkable. PANCREAS: Unremarkable. SPLEEN: Unremarkable. ADRENAL GLANDS: Unremarkable. KIDNEYS AND URETERS: No evidence of hydronephrosis or renal calculus. The kidneys enhance symmetrical ly. PELVIS BLADDER: Under distended, limiting evaluation. REPRODUCTIVE: Unremarkable. ABDOMEN & PELVIS STOMACH AND BOWEL: Stomach and duodenum are unremarkable. Distal colonic diverticulosis without evide nce for acute diverticulitis. Enteric contrast reaches the distal small bowel. No evidence of bowel o bstruction. PERITONEUM: No evidence of pneumoperitoneum or free fluid. VASCULATURE: No evidence of aortic aneurysm. MUSCULOSKELETAL: No acute osseous abnormalities. No aggressive osseous lesion. LYMPH NODES: Enlarged periportal lymph node measuring 1.4 cm short axis (series 9, image 44). Enlarge d bilateral external iliac chain lymph node with largest on the left measuring 1.5 cm short axis (ser ies 9, image 95). Mildly enlarged right inguinal lymph nodes measuring up to 1.3 cm short axis. Enlar ged left inguinal lymph nodes with largest measuring 2.1 cm short axis (series 9, image 115). SOFT TISSUE/ABDOMINAL WALL: Unremarkable IMPRESSION: 1. Bilateral inguinal adenopathy with largest in the left measuring 2.1 cm short axis. Additional en larged bilateral external iliac lymph nodes and an enlarged periportal lymph node. These are nonspeci fic but raise concern for metastasis or lymphoma. Consider ultrasound-guided biopsy of the enlarged l eft inguinal lymph node. 2. Diverticulosis without evidence for acute diverticulitis.
== END | disposition home or self-care (01) ==
LOC: RADCTMAIN 06-11 17:23
PROVIDERS: ATTEND Family Medicine
DX: K57.30 Diverticulosis of large intestine without perforation or abscess without bleeding (principal); R59.0 Localized enlarged lymph nodes
CPT/HCPCS: 74178; Q9967